=== PATIENT | male | born 1970 | race Caucasian/White ===

== ENCOUNTER 2017-05-28 17:47 | Inpatient (IN) | payer MEDICAID ==
[~2017-05-28] VITALS: Ht 188 cm; Wt 117.0 kg
[~2017-05-28 17:47] MED LIST: ALDACTONE25 MG PO; B COMPLEX1 EAC1 PO; BAYER CHEWABLE81 MG PO; BYSTOLIC 5 MG5 M1 PO; BYSTOLIC10 MG PO; CRESTOR40 MG PO; FENOFIBRIC ACI135 MG PO; FISH OIL 500 M1 EAC1 PO; FOLIC ACID1 MG PO; HYDROCODON-ACE1 EAC5 PO; IBUPROFEN 400400 M2 PO; LIORESAL 10 MG10 MG PO; LIPITOR 20 MG T20 M1 PO; OMEPRAZOLE40 MG PO; OSELB75 PO; OXYCODONE HCL 55 MG PO; PREVACID PO; PRINIVIL5 MG PO; UNICOMPLEX M TA1 TA1 PO; ZETIA10 MG PO
[2017-05-28 17:58] VITALS: BP 147/107
[2017-05-28 18:44] LABS: HEMATOCRIT 44.3 % (42.0-52.0); HEMOGLOBIN 15.1 gm/dL (14.0-18.0); MCH 33.6 pg (26.0-34.0); MCHC 34.1 g/dL (28.0-37.0); MCV 98.4 fL (80.0-100.0); MPV 8.2 fl. (7.2-11.1); NUCLEATED RBCS 0 /100WBC; PLATELET COUNT* 248 thou/uL (150-400); RDW-CV 16.4 % (10.5-14.5); WBC 8.1 thou/uL (4.0-11.0)
[2017-05-28 18:49] LABS: BE 1.5 mmol/L (-2 to +3); HCO3 24.1 mmol/L (22.0-26.0); PCO2 32.7 mmHg (35.0-45.0); PO2 84.1 mmHg (75.0-100.0); pH 7.485 (7.340-7.450)
[2017-05-28 18:57] LABS: CALCIUM 8.7 mg/dL (8.5-10.1); CREATININE 1.1 mg/dL (0.6-1.3); POTASSIUM 3.7 mmol/L (3.5-5.1)
[2017-05-28 19:04] LABS: ALBUMIN 2.9 g/dL (3.4-5.0); TOTAL BILIRUBIN 1.2 mg/dL (<0.1-1.0); TOTAL PROTEIN 7.2 g/dL (6.4-8.2); TROPONIN-I LEVEL 0.27 ng/mL (<0.06)
--- NOTE | 2017-05-28 19:10 | NUR ---
RT HERE AND TREATMENT IN PROGRESS
[2017-05-28 19:21] LABS: ABSOLUTE LYMPHOCYTES 0.3 thou/uL (0.8-5.3); ABSOLUTE MONOCYTES 0.6 thou/uL (0.0-1.2); ABSOLUTE NEUTROPHILS 7.2 thou/uL (1.6-8.1); PLATELET ESTIMATE ADEQUATE
[2017-05-28 19:35] LABS: URINE BLOOD 3+ (Negative); URINE CLARITY CLEAR; URINE COLOR DARK YELLOW; URINE GLUCOSE-RANDOM NEGATIVE (Negative); URINE KETONES 1+ (Negative); URINE LEUKOCYTES-REFLEX NEGATIVE (Negative); URINE NITRITE-REFLEX NEGATIVE (Negative); URINE PROTEIN 3+ (Negative); URINE SPECIFIC GRAVITY >= 1.030 (1.005-1.030); URINE UROBILINOGEN 0.2 E.U./dl (0.2-1.0)
[2017-05-28 19:39] LABS: ICTOTEST (BILI CONFIRMATORY) Negative (Negative); URINE BILIRUBIN 2+ (Negative)
[2017-05-28 19:42] LABS: AMP/METHAMP POSITIVE (Negative); BARBITURATES Negative (Negative); BENZODIAZEPINES Negative (Negative); COCAINE Negative (Negative); METHADONE Negative (Negative); OPIATES Negative (Negative); PCP Negative (Negative); THC POSITIVE (Negative)
[2017-05-28 19:46] LABS: CRYSTALS None Seen /LPF (None Seen); HYALINE CASTS 4-10 Moderate /LPF (None Seen); MUCUS 0-3 Light strn/LPF (None Seen)
[2017-05-28 19:47] LABS: URINE RBC 0-2 Rare /HPF (0-2)
[2017-05-28 19:48] LABS: BACTERIA-REFLEX 1-9 Few /HPF (None Seen); SQUAMOUS NONE SEEN /LPF (0-3); URINE WBC-REFLEX None Seen /HPF (0-5)
[2017-05-28 19:52] LABS: INFLUENZA A ANTIGEN None Detected (None Detect); INFLUENZA B ANTIGEN None Detected (None Detect)
--- NOTE | 2017-05-28 19:59 | NUR ---
DR GUTHRIE INTO SEE PATIENT
[2017-05-28 22:00] VITALS: BP 131/73
[2017-05-28 22:30] VITALS: BP 126/91
--- NOTE | 2017-05-28 23:00 | NUR ---
RECEIVED REPORT FROM ER. PT TO ROOM AT 2205, PT'S SISTER AT BEDSIDE. PT RESTLESS AND ANXIOUS. DIAPHORETIC DUE TO TEMP BREAKING. TELEMETRY APPLIED SHOWING A-FIB BUT ELECTRODES COMING OFF FREQ DUE TO DIAPHORESIS AND RESTLESSNESS. SEE ADMISSION ASSESSMENT AND HX. PT INFORMED OF FALL RISK, BED ALARM ON. WILL CONT TO MONITOR AND ASSIST NEEDED.
[2017-05-29] VITALS: BP 119/78
[2017-05-29 04:00] VITALS: BP 127/88
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
[2017-05-29 08:00] VITALS: BP 148/84
[2017-05-29 12:00] VITALS: BP 125/81; BP 128/81
--- NOTE | 2017-05-29 14:37 | EKG ---
[place] [address] ELECTROCARDIOGRAM REPORT Name: FARZANA STARKEY Room: [address] ADM IN .R.#: [id number] Admission: 05/28/17 Attend Phys: Shayy Will Discharge: Date of : 68 Report #: [id number] THIS REPORT FOR: //name// [facility] ED Test Date: 2017-05-28 Test Time: 17:57:37 Pat Name: FARZANA STARKEY Department: Room: [facility] Gender: M Endo Tech: MIKI : 1970 Requested By: Velma Pope Order Number: [id number] MD: Kem Hatfield Measurements Intervals [place] Rate: 117 P: DC: QRS: 101 QRSD: 137 T: -34 QT: 356 QTc: 497 Interpretive Statements Atrial fibrillation RBBB and LPFB Borderline ST elevation, lateral leads Baseline wander in lead(s) V1 Compared to ECG 05/08/2013 11:26:02 Left posterior fascicular block now present Right bundle-branch block now present ST (T wave) deviation now present Sinus rhythm no longer present Myocardial infarct finding no longer present Electronically Signed On 05-29-2017 14:37:15 COUNTER CUTTER by Kem Hatfield [email or web address] <ELECTRONICALLY SIGNED> By: Kem Hatfield MD, [facility] 05/29/17 1437 56 175 Kem Hatfield MD, [facility] /EPI
[2017-05-29 16:30] VITALS: BP 125/90
[2017-05-29] MEDS ORDERED: PRINIVIL20 M1 PO (17:25)
--- NOTE | 2017-05-29 18:23 | NUR ---
ASSUMED CARE OF PT AT 0730. PT WAS LETHARGIC THIS AM BUT THE MORNING PROGRESSED PT BECAME MORE AL;ERT AND HAS BEEN A&O X4 FOR THE REMAINDER OF THE SHIFT. PT HAS HAD C/O RUBIA AND RIB PAIN WELL A HEADACHE THAT HAVE BEEN EFFECTIVELY CONTROLLED WITH PRN PAIN MEDICATION. PT IS STEADY ON HIS FEET AND HAS BEEN AMBULATING TO THE BATHROOM WITH SBA. PT HAS A GOOD APPETITE AND EVEN ATE A TURKEY SANDWICH WITH HIS DINNER. PT CURRENTLY RESTING INN BED WATCHING TV WITH FAMILY AT BEDSIDE. NURSING WILL CONTINUE TO MONITOR.
[2017-05-29] MEDS ORDERED: NORCO 10-325 T1 EACH PO (19:38)
[2017-05-29 20:30] VITALS: BP 138/84
[2017-05-29 20:51] LABS: CALCIUM 8.1 mg/dL (8.5-10.1); CREATININE 0.9 mg/dL (0.6-1.3); MAGNESIUM 1.8 mg/dL (1.8-2.4)
[2017-05-30] VITALS: BP 138/77
[2017-05-30 04:48] VITALS: BP 130/92
--- NOTE | 2017-05-30 04:53 | NUR ---
ASSUMED PT CARE AT H1930, PT IS A&OX4, PT WAS VERY UPSET THAT HIS PCP WAS NOT NOTIFIED OF HIS ADMISSION. HOME MEDICATIONS RESTARTED. PRN PAIN MEDEICATIONS CHANGED AND GIVEN PER JUL. PT IA TRACING AFIB ON THE MONITOR, ON RA SATTING MID TO HIGH 90'S. PT IS UP AD DEBORAH IN HIS ROOM AND SPPEARS STABLE ON HIS FEET. BED IN LOS POSITION, CALL LIGHT IN REACH. HOURLY ROUNDING COMPELTED FOR PT SAFETY.
[2017-05-30 08:00] VITALS: BP 121/90
[2017-05-30 13:19] VITALS: BP 115/72
[2017-05-30 16:30] VITALS: BP 127/97
--- NOTE | 2017-05-30 18:19 | NUR ---
ASSUMED CARE OF PT AT 0730. PT CONTINUES TO BE A&O X4. PT VSS AND C/O RIB AND BACK PAIN THAT HAS BEEN CONTROLLED WITH PRN PAIN MEDS. PT C/O SOA WITH AMBULATION AND LAYING FLAT, HE REFUSES TO WEAR SUPPLEMENTAL O2 BUT IS MAINTAINING SATS IN THE MID 90S ON ROOM AIR. PT HAS A GOOD APPETITE AND HAS ATE GREATER THAN 90% OF ALL MEALS TODAY. NURSING WILL CONTINUE TO MONITOR.
[2017-05-30 20:00] VITALS: BP 131/94
[2017-05-31] VITALS (14 sets, daily range): BP systolic 114–155; BP diastolic 70–104
--- NOTE | 2017-05-31 04:41 | NUR ---
ASSUMED PT CARE AT 1930, PT IS A&OX4, PT DENIES ANY PAIN OR NEEDS THIS SHIFT. PT IS TRACING AFIB/FLUTTER ON THE MONITOR, ON RA SATTING MID TO HIGH 90'S. PT CALLED OUT AND STATES HE COULD NOT BREATHE, O2 SAT READING 95% ON RA. AUDIBLE WHEEZES PRESENT. PT WAS PLACED ON 2L NC PER REWUEST. PT ASKED IF HE WANTED A PRN BREATHING TREATMENT. PT DENIED STATING THAT THE TREATMENTS WERE MAKING HIM NOT ABLE TO BREATHE. DESPITE EDUCATION PT DID NOT WANT A TREATMENT. PT IS UP AD DEBORAH IN HIS ROOM AND STABLE ON HIS FEET. BED IN LOW POSITION, CALL LIGHT IN RAECH. HOURLY ROUNDING COMPLETED FOR PT SAFETY.
--- NOTE | 2017-05-31 07:15 | NUR ---
CHANGE OF SHIFT, BEDSIDE REPORT GIVEN PATIENT SEEN AT BEDSIDE, ASLEEP
--- NOTE | 2017-05-31 09:00 | NUR ---
report given to mary garces and she assume patient care
--- NOTE | 2017-05-31 10:32 | NUR ---
Pt out of room having a heart cath, will f/u later
--- NOTE | 2017-05-31 11:20 | NUR ---
PT BACK FROM TRAFFIC CIRCUIT ENGINEER. PT EDUCATED ON BEDREST AND NOT ELEVATING HOB ABOVE 30 DEGREES IT CAN CAUSE BLEEDING. PT AFIB ON MONITOR. NO BLEEDING OR HEMATOMA AT CATH SITE
--- NOTE | 2017-05-31 12:00 | NUR ---
PT SITTING UP IN BED PUTTING HIS SHORTS ON. PT REEDUCATED ON BEDREST AND NOT SITTING UP DUE TO RISK OF BLEEDING. PT VERBALIZED UNDERSTANDING. HE STATES THAT IF NURSING STAFF DOES NOT COME IMMEDIATELY WHEN CALLED THEN HE WILL "JUST GET UP AND WALK TO THE BATHROOM". URINALS AT AT BS. CONTINUED TO REINFORCE RISK OF BLEEDING
--- NOTE | 2017-05-31 17:03 | NUR ---
PT HAD HEART CATH THIS AFTERNOON. PT DENIES CP OR SOA. PT NONCOMPLAINT WITH BEDREST DESPITE WARNING OF POSSIBILITY OF BLEEDING. PT DIURESED APPROX 3 L THIS AFTERNOON AFTER LASIX. NO BLEEDING OR HEMATOMA FROM CATH SITE. PT TOLERATING PO WELL.
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
--- NOTE | 2017-05-31 18:19 | NUR ---
Pt given phone numbers for [facility] at [facility]
[2017-06-01] VITALS: BP 118/75
[2017-06-01 03:00] VITALS: BP 112/72
[2017-06-01 05:17] LABS: CALCIUM 8.3 mg/dL (8.5-10.1); CREATININE 0.8 mg/dL (0.6-1.3); POTASSIUM 4.5 mmol/L (3.5-5.1)
--- NOTE | 2017-06-01 05:55 | NUR ---
PT HAS DENIED CHEST/ARM PAIN, NUMBNESS/TINGLING, AND SOA THROUGHOUT THIS SHIFT. HE CONTINUES TO REFUSE TO WEAR O2 PER NC. RIGHT GROIN CATH DRESSING C/D/I, NO BRUISING OR HEMATOMA PRESENT. PT VOIDS PER URINAL INDEPENDENTLY. BLE 1+ PITTING EDEMA THAT PT STATED IS "BECAUSE OF THIS INFECTION." PT EDUCATED ON HIS DECREASED EF OF 25% AND CARDIAC ETIOLOGY, HE REPLIED "MY HEART IS BECAUSE OF THIS INFECTION TOO." VSS. WHISKEY FILTERER TRACING A-FIB WITH BBB. CALL LIGHT WITHIN REACH.
[2017-06-01 08:00] VITALS: BP 131/91
--- NOTE | 2017-06-01 09:50 | CON ---
[address] [address] CONSULTATION Name: FARZANA STARKEY Room: [address] IN .R.#: [id number] Admission: 05/28/17 Attend Phys: Shayy Will Discharge: Date of : 68 Report #: [id number] THIS REPORT FOR: //name// CC: JOE physician/PCP Faustino Zabala DATE OF SERVICE: 05/29/2017 CHIEF COMPLAINT: Chest pain. HISTORY OF PRESENT ILLNESS: The patient is a 47-year-old male with history of prior bypass surgery presented with acute chest discomfort, very similar to his prebypass symptoms. He did not have his nitroglycerin apparently and presented to the emergency room with 8/10 severe left-sided chest discomfort. It occurred at rest. It was not associated with shortness of breath but he has been coughing a lot. He was diagnosed with pneumonia and during his cardiac workup his troponin I was mildly abnormal at 0.35. He is chest pain free at this point in time after nitroglycerin. He has been short of breath with activity and denies orthopnea or PND. He has had intermittent edema. He presents with a positive drug screen and is an active tobacco user as well. He denies fevers but has had some chills and associated cough. He has not had any revascularization since his initial bypass in 2008 but has not seen his hospital manager, Dr. Pickard in over a year but at that time stress testing was negative. PAST MEDICAL HISTORY: [place] CABG 2009, 5 vessels, hyperlipidemia, hypertension, tobacco use, drug use. HOME MEDICATIONS: Include lisinopril 20 mg daily, Bystolic 5 mg daily, Crestor 40 mg daily, aspirin 81 mg daily, hydrocodone p.r.n. PAST SURGICAL HISTORY: Prior collar bone surgery. FAMILY HISTORY: Positive for heart disease and high blood pressure on the male sides of his family. SOCIAL HISTORY: As above. REVIEW OF SYSTEMS: PVD: Denies history of carotid vascular disease, neuro symptoms, slurred speech, [place] [address] CONSULTATION Name: FARZANA STARKEY Room: [address]#: [id number] Admission: 05/28/17 Attend Phys: Shayy Will Discharge: Date of : 68 Report #: [id number] RESPIRATORY: Positive asthma. CARDIOVASCULAR: Positive chest discomfort, positive shortness of breath. No orthopnea, no PND. Intermittent edema is noted. No history of murmur. ENDOCRINE: He is not known to be a diabetic. GENITOURINARY: No dysuria or hematuria. HEME: No anemia or bleeding disorders. RENAL: No history of kidney failure. NEURO: Denies history of strokes or TIA. SKIN: No rashes. PHYSICAL EXAMINATION: VITAL SIGNS: Blood pressure on presentation was 148/84, pulse was sinus tachycardia, heart rate 122, temperature is 36.3. GENERAL: This is an alert, oriented, morbidly obese white male. He is alert and oriented in no apparent distress. NECK: Supple. No jugular venous distention. CARDIOVASCULAR: Regular. I cannot hear murmur. LUNGS: Clear to auscultation. ABDOMEN: Nontender. EXTREMITIES: There is no peripheral edema. SKIN: Warm and dry. LABORATORY DATA: Electrocardiogram demonstrates a sinus rhythm. There is a right bundle branch block conduction abnormality incomplete. There are no acute ST segment abnormalities. There is T-wave inversion in V4, V5, subtle. Hemoglobin is 15.1, white blood cell count is 8.1, platelet count is 248,000, D-dimer is 1.28. Toxicology is positive for meth and marijuana. IMAGING: CTA of the chest reveals no evidence of pulmonary embolism. IMPRESSION: 1. Unstable angina. There is a slight cardiac troponin level abnormality. His cardiac troponin level is 0.32 and 0.35 but this is in the setting of an active infection. I think I would like to treat him with antibiotics for 48 hours and plan for further evaluation with the diagnostic cardiac catheterization unless he becomes more anginal. Currently, he is chest pain free. 2. Coronary artery disease status post coronary artery bypass graft. It appears the patient has some risk factor of medications that need to be further undertaken. 3. Hypertension. He will continue with his present medical therapy. 4. Substance abuse as noted above. Withdrawal precautions have been initiated. <ELECTRONICALLY SIGNED> By: Kem Hatfield MD, FACC 06/01/17 0950 1053 [id number] Hatfield MD, FACC /nt
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
--- NOTE | 2017-06-01 11:16 | NUR ---
ASSUMED CARE OF PT AROUND 0800 THIS AM. REFER TO ASSESSMENT. PT IV SITE NO LONGER PATENT THIS AM. NEW IV INSERTED TO LT AC. PT STARTED ON NEW HTN/ RATE CONTROL MEDICATIONS THIS AM BY RAW SILK GRADER. ANTICIPATE MARTHA WITH CARDIOVERSON TOMORROW AM. PHYSICIAN AND NURSE DISCUSSED PLAN OF CARE WITH PT AND PT REPORTS UNDERSTANDING AND AGREES WITH PLAN OF CARE THIS AM. NO OTHER CONCERNS AT THIS TIME. CLWR. WCTM.
[2017-06-01 11:37] VITALS: BP 119/71; BP 19/71
[2017-06-01 15:50] VITALS: BP 128/100
--- NOTE | 2017-06-01 17:04 | NUR ---
PT PROGRESSING TOWARDS GOALS. CONSENT OBTAINED BY LINOLEUM LAYER RN FOR MARTHA W/ CARDIOVERSION TOMORROW. PT HAS BEEN EDUCATED ON PROCEDURE. VSS THIS SHIFT. PT'S PAIN AND ANXIETY MANAGED W/ PRN MEDICATION THIS SHIFT. PT REPORTS FREQUENT URINE OUTPUT WITH IV LASIX ADMINISTRATION. UNABLE TO ACCURATELY MEASURE. NO OTHER CONCERNS AT THIS TIME. CLWR. WCTM.
--- NOTE | 2017-06-01 17:43 | CARD ---
[facility] [address] [place] [address] CARDIAC CATH REPORT Name: FARZANA STARKEY Baldemar Room: [address] IN [facility]#: [id number] Admission: 05/28/17 Attend Phys: Shayy Will Discharge: Date of : 68 Report #: [id number] THIS REPORT FOR: //name// APPROVED REPORT Patient Details Patient Status: In-Patient Room #: The patient is a 47 year-old male Event Personnel Ryan Blair Heel Seat Fitter Machine, Hilary Barrett RN RN, Key Newman RTR Karin Lopez James Monitor Procedures Performed cath Indication Heart failure, Unstable angina Risk Factors Coronary Artery Disease, Tobacco History () Previous Procedures/Diagnoses Previous CABG Procedure Narrative The patient was brought electively to the Cardiac Catheterization Laboratory and was prepped and draped in a sterile manner. The right femoral was infiltrated with 1% Lidocaine subcutaneous anesthesia. A 6fr Ultimum Sheath sheath was inserted into the right femoral artery. Coronary angiography was performed using coronary diagnostic catheters. The right coronary system was accessed and visualized with a Diagnostic-JR4 & RBG catheter. The left coronary system was accessed and visualized with a Diagnostic-JL4 & IM catheter. The left ventricle was accessed and visualized with a Diagnostic-ANGLED PIG catheter. Left ventricular/Aortic Valve gradient assessed via catheter pullback. Left ventriculogram was performed in IGNACIO projection. Pre-demployment femoral angiogram was performed . Closure device was deployed with a 6 Fr MynxGrip 6/7F. The patient tolerated the procedure well and there were no complications associated with the procedure. There was no hematoma. Intraoperative Conscious Sedation Sedation start time: 1009 Case end Time: 1048 [place] [address] CARDIAC CATH REPORT Name: JAKYFARZANA Baldemar Room: [address] IN [facility]#: [id number] Admission: 05/28/17 Attend Phys: Shayy Will Discharge: Date of : 68 Report #: [id number] Fentanyl 75 mcg Versed 2 mg Fluoro Time: 7.7 minutes Dose: DAP [id number] cGycm2 2124 mGy Contrast Type and Amount: Omnipaque 305 ml Coronary Angiography The patient's coronary anatomy is right dominant. [place] Artery Percent Stenosis Left Main: 0 % Prox LAD: 100 % Mid/Distal LAD: % Circumflex: 100 % RCA: 100 % Ramus: % Grafts (Complete if Previous CABG=Yes: Percent Stenosis) HUANG graft had a 50% ostial stenosis. HUANG graft filled only a small apical lad. SVG was open to a diagonal artery and a sequential jump graft to a distal small marginal branch of the circumflex. Second SVG was open to the distal RCA with a sequential jump graft to the PORTIA branch. [place] PDA had a ostial 90% stenosis. [place] PORTIA had a mid 80% stenosis. Left Ventriculography The left ventricular ejection fraction is estimated to be 25-30%. Global hypokinesis noted of the left ventricle Hemodynamics The aortic pressure is 130/101 mmHg with a mean of 112 mmHg. The left ventricular pressure is 134/14 mmHg with a mean of mmHg. The left ventricular end diastolic pressure is 28 mmHg. There was no gradient across the aortic valve upon pullback. Pullback from the left ventricle to the aorta revealed no gradient across the aortic valve. Conclusion 1. Severe 3 vessel cad 2. Patent HUANG graft to the LAD 3. Patent SVG's to the diagonal, marginal branch of the circumflex and , PAD, and PORTIA of the RCA 4. Severe LV systolic function Recommendations Consider stenting of the PDA branch of the RCA [place] [address] CARDIAC CATH REPORT Name: FARZANA STARKEY Room: [address] IN [facility]#: [id number] Admission: 05/28/17 Attend Phys: Shayy Will Discharge: Date of : 68 Report #: [id number] despite medical therapy. Consider Life Vest and ICD for primary prevention of sudden <ELECTRONICALLY SIGNED> By: Ryan Blair MD, [facility] 06/01/17 1743 1743 [id number] Blair MD, FACC /INF
[2017-06-01 20:10] VITALS: BP 158/107
[2017-06-02] VITALS (17 sets, daily range): BP systolic 80–137; BP diastolic 46–102
--- NOTE | 2017-06-02 07:50 | NUR ---
ASSUMED CARE AT 1999, ASSESSMENT CHARTED. PATIENT ALERT/ORIENTED X4, RESTING IN BED. UP AD DEBORAH IN ROOM. DENIES NEEDS. STATES HAVING PAIN TO BACK, MEDS PER MAR WITH RELIEF NOTED. REFUSING SCD'S. NPO AFTER MIDNIGHT FOR AM PROCEDURE. CALL LIGHT WITHIN REACH, ENCOURAGED TO CALL FOR NEEDS.
--- NOTE | 2017-06-02 11:32 | EKG ---
[place] [address] ELECTROCARDIOGRAM REPORT Name: FARZANA STARKEY Room: [address] ADM IN M.R.#: [id number] Admission: 05/28/17 Attend Phys: Shayy Will Discharge: Date of : 68 Report #: [id number] THIS REPORT FOR: //name// [facility] Test Date: 2017-06-02 Test Time: 09:17:05 Pat Name: FARZANA STARKEY Department: Room: [address] Gender: M Debt And Budget Counselor: : 1970 Requested By: Ryan Blair Order Number: [id number] Yusuf MD: Ryan Blair Measurements Intervals [place] Rate: 66 P: 44 [place]: 163 QRS: 88 QRSD: 144 T: 68 QT: 466 QTc: 489 Interpretive Statements Sinus rhythm Atrial premature complex Left atrial enlargement Right bundle branch block Compared to ECG 05/28/2017 17:57:37 Atrial fibrillation no longer present Electronically Signed On 06-02-2017 11:32:23 MACHINE HEEL BUILDER by Ryan Blair [email or web address] <ELECTRONICALLY SIGNED> By: Ryan Blair MD, [facility] 06/02/17 1132 6 6 Ryan Blair MD, [facility] /EPI
--- NOTE | 2017-06-02 16:36 | NUR ---
ASSUMED CARE OF PATIENT THIS AM AT 0730. PATIENT IS ALERT AND ORIENTED THIS AM. HE DENIED PAIN AND DISCOMFORT. PATIENT KEPT NPO P MN FOR A PROCEDURE IN CARDIOLOGY. PATIENT PREMEDICATED WITH AMIODERONE AND ELIQUS PER DR ABDULLAHI ORDERS. HE WAS TAKEN TO THE CATHLAB PER BED. PATIENT RETURNED TO THE ROOM AFTER 1000 AM. HIS TELE RHYTHM HAS CHANGED TO SR. PATIENT REMAINS IN SR AT THIS TIME. HE HAD A EPISODE WHEN HIS HR DECREASED TI THE 20S. PATIENT WAS SLEEPING AT THE TIME AND DENIED CHEST PAIN. PATIENT IS RESTING AT THIS TIME. NO FALLS OR INJURY
--- NOTE | 2017-06-02 16:42 | TEE ---
[place] [address] TRANSESOPHAGEAL ECHOCARDIOGRAM Name: FARZANA STARKEY Room: [address] IN [facility]#: [id number] Admission: 05/28/17 Attend Phys: Faustino Zabala Discharge: Date of : 68 Date of Service: 06/02/17 1641 Report #: [id number] THIS REPORT FOR: //name// APPROVED REPORT Study performed: 06/02/2017 08:27:32 EXAM: Transesophageal Echocardiogram Patient Location: In-Patient Room #: [facility] Status: routine BSA: 2.46 HR: 104 bpm BP: 100/56 mmHg Rhythm: Atrial Fibrillation Other Information Study Quality: Good Indications Atrial Fibrillation Echo Enhancing Agent Indication: Rule out Shunt Agent(s) / Amount(s) Used: Agitated Saline 20 cc Procedure After obtaining informed consent, patient underwent transesophageal echo in the [employer]. Type of Sedation : General Anesthesia Sedation was administered by Anesthesiologist. Sedation start time: 844 Case end Time: 904 Sedation was achieved intravenously with: Propofol (200 mg) Transesophageal probe was inserted and advanced into esophagus without difficulty by Ryan Blair MD, FACC. Echo enhancement indication: R/O Septal defect. Echo enhancement agent administered: Agitated Saline The MARTHA was performed without complications. Synchronized Cardioversion acheived with 300 Joules after 1 attempt(s). Rhythm following Synchronized Cardioversion: Normal Sinus Rhythm Throughout the procedure, the blood pressure, pulse oximetry, cardiac rhythm, and rate were monitored. The patient tolerated the procedure without [place] [address] TRANSESOPHAGEAL ECHOCARDIOGRAM Name: FARZANA STARKEY Room: [address] IN [facility]#: [id number] Admission: 05/28/17 Attend Phys: Faustino Zabala Discharge: Date of : 68 Date of Service: 06/02/17 1641 Report #: [id number] from conscious sedation was uneventful and vital signs were stable. Left Ventricle Left ventricle is mildly dilated. There is global hypokinesis of the left ventricle. There is normal left ventricular wall thickness. Left ventricular systolic function is severely decreased. LVEF is 25-30%. Right Ventricle The right ventricle is normal size. The right ventricular systolic function is normal. Atria No thrombus is visualized in the left atrium or appendage. Left atrium is mildly dilated. Interatrial septum is intact without evidence of ASD or PFO. The right atrium size is normal. Aortic Valve Mild aortic valve sclerosis. No aortic regurgitation is present. There is no aortic valvular stenosis. Mitral Valve The mitral valve is normal in structure. Mild to moderate mitral regurgitation. No evidence of mitral valve stenosis. Tricuspid Valve The tricuspid valve is normal in structure. Trace tricuspid regurgitation. Pulmonic Valve The pulmonary valve is normal in structure. There is no pulmonic valvular regurgitation. Great Vessels The aortic root is normal in size. Pericardium There is no pericardial effusion. <Conclusion> Left ventricle is mildly dilated. LVEF is 25-30%. No thrombus is visualized in the left atrium or appendage. Left [place] [address] TRANSESOPHAGEAL ECHOCARDIOGRAM Name: JAKYFARZANA R Room: [address] IN ..#: [id number] Admission: 05/28/17 Attend Phys: Faustino Zabala Discharge: Date of : 68 Date of Service: 06/02/171640 Report #: [id number] Interatrial septum is intact without evidence of ASD or PFO. Mild to moderate mitral regurgitation. <ELECTRONICALLY SIGNED> By: Ryan Blair MD, FACC 06/02/171640 40 40 Ryan Blair MD, FACC /INF
[2017-06-03] VITALS: BP 121/76
[2017-06-03 04:00] VITALS: BP 135/84
--- NOTE | 2017-06-03 05:17 | NUR ---
ASSUMED PT CARE AT 1930, PT IS A&OX4, PT IS TRACING NSR ON THE MONITOR, WITH A BBB, PT BECOMES NAIDA MID TO LOW 30'S ON OCCASION WHILE HE IS SLEEPING. PT IS ON RA SATTING MID TO HIGH 90'S AT THIS TIME. PT IS UP AD DEBORAH IN HIS ROOM, STABLE ON HIS FEET. BED IN LOW POSITION, CALL LIGHT IN REACH. HOURLY ROUNDING COMPLETED FOR PT SAFETY.
[2017-06-03 08:00] VITALS: BP 144/103
[2017-06-03 12:00] VITALS: BP 122/81
--- NOTE | 2017-06-03 12:10 | NUR ---
ASSESSMENT COMPLETED REFER TO COMPUTER CHARTING. HOSPICE VOLUNTEER COORDINATOR TRACKING SR WITH BBB. PATIENT REPORTING NO SHORTNESS OF BREATH OR NAUSEA. PATIENT RESING IN BED. BED IN LOW AND LOCKED POSITION. CALL LIGHT WITHIN REACH. PATIENT UP IN ROOM. WILL CONTINUE TO MONITOR.
[2017-06-03 12:15] VITALS: BP 125/72
--- NOTE | 2017-06-03 17:30 | EKG ---
[place] [address] ELECTROCARDIOGRAM REPORT Name: FARZANA STARKEY Room: [address] ADM IN M.R.#: [id number] Admission: 05/28/17 Attend Phys: Shayy Will Discharge: Date of : 68 Report #: [id number] THIS REPORT FOR: //name// [facility] Test Date: 2017-06-03 Test Time: 07:54:57 Pat Name: FARZANA STARKEY Department: Room: [address] Gender: M Conference Center Manager: : 1970 Requested By: Ryan Blair Order Number: [id number] Yusuf MD: Markus Calvo Measurements Intervals [place] Rate: 66 P: 47 [place]: 181 QRS: 84 QRSD: 145 T: 51 QT: 492 QTc: 516 Interpretive Statements Sinus rhythm Left atrial enlargement Right bundle branch block Compared to ECG 06/02/2017 09:17:05 Atrial premature complex(es) no longer present Electronically Signed On 06-03-2017 17:30:00 CARBON FURNACE OPERATOR by Markus Calvo [email or web address] <ELECTRONICALLY SIGNED> By: Markus Calvo MD, FAC 06/03/17 1730 0754 0754 Markus Calvo MD, [facility] /EPI
[2017-06-03 20:00] VITALS: BP 152/102
[2017-06-04] VITALS: BP 131/94
[2017-06-04 04:00] VITALS: BP 131/89
--- NOTE | 2017-06-04 04:36 | NUR ---
ASSUMED PT CARE AT 1930, PT IS A&OX4, PT DENIES ANY NEEDS AT THIS TIME. PT IS TRACING NSR, SB ON THE MONITOR WHILE HE IS SLEEPING. PT WILL NAIDA INTO THE 30'S AND HIGH 20'S, PT HAS OCCASIONAL PAUSES LASTING UP TO 3 SECONDS. PT IS ON RA SATTING MID TO HIGH 90'S MAT THIS TIME. PT IS UP AD DEBORAH IN HIS ROOM AND STABLE ON HIS FEET. BED IN LOW POSITION, CALL LIGHT IN REACH, HOURLY ROUNDING COMPLETED FOR PT SAFETY.
[2017-06-04 07:38] LABS: ANION GAP 8 mmol/L (7-16); BUN 21 mg/dL (7-18); CHLORIDE 100 mmol/L (98-107); CHOLESTEROL 149 mg/dL (<200); CO2 29 mmol/L (21-32); CREATININE 0.7 mg/dL (0.6-1.3); GLUCOSE 124 mg/dL (70-99); HDL CHOLESTEROL 44 mg/dL (>40); LDL CHOLESTEROL 86 mg/dL (<100); POTASSIUM 5.6 mmol/L (3.5-5.1); SERUM ASSESSMENT Clear; SODIUM 137 mmol/L (136-145); TC:HDL 3.4 Ratio (Not establshd); TRIGLYCERIDE 96 mg/dL (<150); VLDL 19 mg/dL (<40)
[2017-06-04 08:00] VITALS: BP 154/96
[2017-06-04 10:19] VITALS: BP 154/96
[2017-06-04 11:30] VITALS: BP 154/101
--- NOTE | 2017-06-04 12:27 | NUR ---
Following for d/c planning needs. Reviewed chart and spoke with nurse, pt and pt's sister. Pt has applied for Social Security disability and states he spoke with the Medical Review physician at [employer] and was told they are making decision re: disability application. According to documentation from [facility], liaison met with pt and they will follow up with sister re: Medicaid application.
--- NOTE | 2017-06-04 12:38 | EKG ---
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1970 Requested By: Ryan Blair Order Number: [id number] MD: Ryan Blair Measurements Intervals [place] Rate: 62 P: 51 IN: 176 QRS: 83 QRSD: 144 T: 42 QT: 513 QTc: 521 Interpretive Statements Sinus rhythm Left atrial enlargement Right bundle branch block Baseline wander in lead(s) V1 Compared to ECG 06/03/2017 07:54:57 No significant changes Electronically Signed On 06-04-2017 12:38:15 FUNERAL DIRECTOR/EMBALMER by Ryan Blair [email or web address] <ELECTRONICALLY SIGNED> By: Ryan Blair MD, [facility] 06/04/17 1238 09 09 Ryan Blair MD, [facility] /EPI
--- NOTE | 2017-06-04 12:41 | NUR ---
Nutrition: Pt seen for LOS. Pt stated he is discharging home later today. We briefly discussed low fat/low salt diet. Pt's sister had questions about what to cook for pt. His appetite is good. 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 Low risk.
[2017-06-04] MEDS ORDERED: PACERONE 200 M200 M1 PO (15:24)
[2017-06-04] MEDS ORDERED: ELIQUIS5 MG PO (15:25)
[2017-06-04] MEDS ORDERED: BAYER CHEWABLE81 MG PO (15:26)
[2017-06-04] MEDS ORDERED: NICOTINE TRANSD21 M1 (15:28)
[2017-06-04] MEDS ORDERED: TYLENOL325 MG PO (15:30)
[2017-06-04] MEDS ORDERED: LEVAQUIN 500 M500 M2 PO (15:33)
[2017-06-04] MEDS ORDERED: ATIVAN1 MG PO (15:35)
[2017-06-04 15:37] VITALS: BP 154/96
--- NOTE | 2017-06-04 16:26 | NUR ---
ASSUMED CARE OF PT THIS AM ASSESSED AND DOCUMENTED. PT ON CARDIAC MONITER TRACING SR. PT IS A&O AND HAS BEEN ON ROOM AIR. PT D/C'D TO HOME. ALL CONSULTS OK WITH D/C. EDUCATION GIVEN RE MEDICATIONS. FOLLOW-UPS. AND DRS ORDERS. SCRIPTS GIVEN. ALL BELONGINGS PACKED UP AND LEFT WITH PT ACCOMPANIED BY SISTER AND STAFF.
--- NOTE | 2017-06-09 16:59 | NUR ---
Follow up phone call, patient stated he is doing well but is tired, is weighing daily, walking for exercise, has gotten all his medications and states he has remained off alcohol. Has an appointment with the cardioloist tomorrow. Is considering outpatient cardiac rehab, wants to be called back in 2 weeks. States he has not had any of the symptoms that brought him into the hospital.
== END 2017-06-04 16:30 | disposition home or self-care (01) | DRG 286 ==
LOC: M.ERS 17:47 → M.2W 20:27 → M.TBA-ER 20:27 → M.2W 23:10
PROVIDERS: Emergency Medicine; Family Medicine; Internal Medicine Cardiovascular Disease; Personal Emergency Response Attendant; ADMIT Internal Medicine
PROC: B2111ZZ Fluoroscopy of Multiple Coronary Arteries using Low Osmolar Contrast (ICD-10-PCS; principal; 2017-06-01)
PROC: B2131ZZ Fluoroscopy of Multiple Coronary Artery Bypass Grafts using Low Osmolar Contrast (ICD-10-PCS; principal; 2017-06-01)
PROC: B2151ZZ Fluoroscopy of Left Heart using Low Osmolar Contrast (ICD-10-PCS; principal; 2017-06-01)
PROC: 4A023N7 Measurement of Cardiac Sampling and Pressure, Left Heart, Percutaneous Approach (ICD-10-PCS; principal; 2017-06-01)
PROC: B24BZZ4 Ultrasonography of Heart with Aorta, Transesophageal (ICD-10-PCS; 2017-06-02)
DX: I25.110 Atherosclerotic heart disease of native coronary artery with unstable angina pectoris (principal); J18.9 Pneumonia, unspecified organism; J44.0 Chronic obstructive pulmonary disease with (acute) lower respiratory infection; J44.1 Chronic obstructive pulmonary disease with (acute) exacerbation; E87.1 Hypo-osmolality and hyponatremia; I48.91 Unspecified atrial fibrillation; F17.210 Nicotine dependence, cigarettes, uncomplicated; I10 Essential (primary) hypertension; I42.9 Cardiomyopathy, unspecified; F19.10 Other psychoactive substance abuse, uncomplicated; E78.5 Hyperlipidemia, unspecified; E78.00 Pure hypercholesterolemia, unspecified; Z95.1 Presence of aortocoronary bypass graft; Z79.82 Long term (current) use of aspirin; Z79.899 Other long term (current) drug therapy; Z82.49 Family history of ischemic heart disease and other diseases of the circulatory system

== ENCOUNTER 2017-06-29 21:16 | Observation (INO) | payer MEDICAID ==
[~2017-06-29] VITALS: Ht 185.4 cm; Wt 115.7 kg
[~2017-06-29 21:16] MED LIST changes: +ATIVAN1 MG PO; +ELIQUIS5 MG PO; +LEVAQUIN 500 M500 M2 PO; +NICOTINE TRANSD21 M1; +NORCO 10-325 T1 EACH PO; +PACERONE 200 M200 M1 PO; +PRINIVIL20 M1 PO; +TYLENOL325 MG PO
[2017-06-29 21:18] VITALS: BP 147/98
[2017-06-29 21:53] LABS: ABSOLUTE BASOPHILS 0.1 thou/uL (0.0-0.2); ABSOLUTE EOSINOPHILS 0.1 thou/uL (0.0-0.7); ABSOLUTE LYMPHOCYTES 1.9 thou/uL (0.8-5.3); ABSOLUTE MONOCYTES 0.5 thou/uL (0.0-1.2); ABSOLUTE NEUTROPHILS 3.1 thou/uL (1.6-8.1); BASOPHILS 0.9 %; EOSINOPHILS 2.4 %; HEMATOCRIT 43.8 % (42.0-52.0); HEMOGLOBIN 15.1 gm/dL (14.0-18.0); MCH 33.2 pg (26.0-34.0); MCHC 34.5 g/dL (28.0-37.0); MCV 96.2 fL (80.0-100.0); MONOCYTES 8.4 %; MPV 7.7 fl. (7.2-11.1); NUCLEATED RBCS 0 /100WBC; PLATELET COUNT* 312 thou/uL (150-400); POLYS 55.3 %; RBC 4.56 mil/uL (4.50-6.00); RDW-CV 15.7 % (10.5-14.5); WBC 5.6 thou/uL (4.0-11.0)
[2017-06-29 21:57] LABS: ANION GAP 6 mmol/L (7-16); BUN 22 mg/dL (7-18); CALCIUM 8.6 mg/dL (8.5-10.1); CHLORIDE 102 mmol/L (98-107); CO2 30 mmol/L (21-32); GLUCOSE 124 mg/dL (70-99); POTASSIUM 4.3 mmol/L (3.5-5.1); SODIUM 138 mmol/L (136-145)
[2017-06-29 22:00] LABS: APTT 25.7 Seconds (25.0-31.3)
[2017-06-29 22:08] LABS: ALBUMIN 3.2 g/dL (3.4-5.0); ALKALINE PHOSPHATASE 59 U/L (46-116); LIPASE 138 U/L (73-393); NT-PRO BRAIN NAT PEPTIDE 845 pg/mL (<300); SGOT 14 U/L (15-37); SGPT 24 U/L (30-65); TOTAL BILIRUBIN 0.3 mg/dL (<0.1-1.0); TROPONIN-I LEVEL <0.06 ng/mL (<0.06)
[2017-06-29 22:25] LABS: BE -1.1 mmol/L (-2 to +3); HCO3 22.8 mmol/L (22.0-26.0); PCO2 35.9 mmHg (35.0-45.0); PO2 78.1 mmHg (75.0-100.0)
[2017-06-30 01:13] VITALS: BP 134/84
[2017-06-30 06:01] VITALS: BP 127/86
--- NOTE | 2017-06-30 09:23 | NUR ---
PROVIDED PT WITH BREAKFAST MEAL TRAY FOR REG DIET
--- NOTE | 2017-06-30 12:47 | EKG ---
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 : 1970 Requested By: Velma Pope Order Number: [id number] MD: Ryan Blair Measurements Intervals [place] Rate: 61 P: 148 VT: 188 QRS: 144 QRSD: 148 T: -31 QT: 463 QTc: 467 Interpretive Statements Sinus or ectopic atrial rhythm right axis Probable left atrial enlargement Right bundle branch block Compared to ECG 06/04/2017 09:17:23 right axis now noted Electronically Signed On 06-30-2017 12:46:47 LAUNDRY MACHINE MECHANIC by Ryan Blair [email or web address] <ELECTRONICALLY SIGNED> By: Ryan Blair MD, [facility] 06/30/17 1246 20 20 Ryan Blair MD, [facility] /EPI
--- NOTE | 2017-06-30 12:47 | EKG ---
[place] [address] ELECTROCARDIOGRAM REPORT Name: FARZANA STARKEY Room: [address] M.R.#: [id number] Admission: 06/30/17 Attend Phys: Shayy Will Discharge: Date of : 68 Report #: [id number] THIS REPORT FOR: //name// [facility] ED Test Date: 2017-06-29 Test Time: 21:27:00 Pat Name: FARZANA STARKEY Department: Room: [facility] Gender: M Nurse Case Management: GL : 1970 Requested By: Velma Pope Order Number: [id number] MD: Ryan Blair Measurements Intervals [place] Rate: 63 P: 131 KS: 198 QRS: 133 QRSD: 145 T: 150 QT: 460 QTc: 471 Interpretive Statements Sinus rhythm right axis Probable left atrial enlargement Right bundle branch block Electronically Signed On 06-30-2017 12:47:26 PATTERN MAKER by Ryan Blair [email or web address] <ELECTRONICALLY SIGNED> By: Ryan Blair MD, [facility] 06/30/17 1247 D: [id number] Ryan Blair MD, FACC /EPI
[2017-06-30 13:36] VITALS: BP 146/95
[2017-06-30 14:39] VITALS: BP 146/95
[2017-06-30 15:02] VITALS: BP 146/95
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
== END 2017-06-30 15:17 | disposition home or self-care (01) ==
LOC: M.ERS 21:16 → M.TBA-ER 06-30 00:04
PROVIDERS: Personal Emergency Response Attendant; ADMIT Internal Medicine
DX: I25.10 Atherosclerotic heart disease of native coronary artery without angina pectoris (principal); J20.9 Acute bronchitis, unspecified; F41.9 Anxiety disorder, unspecified; F43.9 Reaction to severe stress, unspecified; Z95.1 Presence of aortocoronary bypass graft; I10 Essential (primary) hypertension; E78.00 Pure hypercholesterolemia, unspecified; M54.9 Dorsalgia, unspecified; G89.29 Other chronic pain; E78.5 Hyperlipidemia, unspecified; F17.210 Nicotine dependence, cigarettes, uncomplicated; I25.2 Old myocardial infarction; I25.5 Ischemic cardiomyopathy; F19.21 Other psychoactive substance dependence, in remission; F10.21 Alcohol dependence, in remission; Z86.79 Personal history of other diseases of the circulatory system

== ENCOUNTER 2017-08-06 13:58 | Inpatient (IN) | payer MEDICAID ==
[~2017-08-06] VITALS: Ht 188 cm; Wt 109.8 kg
[2017-08-06 14:04] VITALS: BP 116/77
[2017-08-06 14:41] LABS: HEMATOCRIT 45.5 % (42.0-52.0); HEMOGLOBIN 15.1 gm/dL (14.0-18.0); MCH 33.4 pg (26.0-34.0); MCHC 33.3 g/dL (28.0-37.0); MCV 100.5 fL (80.0-100.0); MPV 7.7 fl. (7.2-11.1); NUCLEATED RBCS 0 /100WBC; PLATELET COUNT* 265 thou/uL (150-400); RBC 4.53 mil/uL (4.50-6.00); RDW-CV 15.8 % (10.5-14.5); WBC 14.1 thou/uL (4.0-11.0)
[2017-08-06 14:48] LABS: INR 1.4; PROTIME 13.5 Seconds (9.20-11.50)
[2017-08-06 14:50] LABS: URINE BILIRUBIN NEGATIVE (Negative); URINE BLOOD 2+ (Negative); URINE CLARITY SL CLOUDY; URINE COLOR YELLOW; URINE GLUCOSE-RANDOM 2+ (Negative); URINE KETONES NEGATIVE (Negative); URINE LEUKOCYTES-REFLEX NEGATIVE (Negative); URINE NITRITE-REFLEX NEGATIVE (Negative); URINE PROTEIN 1+ (Negative); URINE SPECIFIC GRAVITY >= 1.030 (1.005-1.030)
[2017-08-06 14:53] LABS: CALCIUM 9.1 mg/dL (8.5-10.1); POTASSIUM 4.8 mmol/L (3.5-5.1)
[2017-08-06 14:55] LABS: ABSOLUTE LYMPHOCYTES 0.6 thou/uL (0.8-5.3); ABSOLUTE MONOCYTES 0.4 thou/uL (0.0-1.2); ABSOLUTE NEUTROPHILS 13.1 thou/uL (1.6-8.1); ATYPICAL LYMPHS 1 %; PLATELET ESTIMATE ADEQUATE
[2017-08-06 14:58] LABS: ACETAMINOPHEN 2 ug/mL (10-30); ALCOHOL < 10 mg/dL (<10); SALICYLATE 4.8 mg/dL (2.8-20.0)
[2017-08-06 14:59] LABS: AMP/METHAMP POSITIVE (Negative); BARBITURATES Negative (Negative); BENZODIAZEPINES POSITIVE (Negative); COCAINE Negative (Negative); METHADONE Negative (Negative); OPIATES POSITIVE (Negative); PCP Negative (Negative); THC Negative (Negative)
[2017-08-06 15:00] LABS: SQUAMOUS 4-10 Moderate /LPF (0-3)
[2017-08-06 15:01] LABS: BACTERIA-REFLEX 1-9 Few /HPF (None Seen); URINE RBC 0-2 Rare /HPF (0-2); URINE WBC-REFLEX None Seen /HPF (0-5)
[2017-08-06 15:02] LABS: AMORPHOUS URATES Few /LPF (None Seen); HYALINE CASTS 0-3 Few /LPF (None Seen); MUCUS 4-6 Moderate strn/LPF (None Seen)
[2017-08-06 15:02] LABS: ALBUMIN 3.5 g/dL (3.4-5.0); CK-MB MASS 8.9 ng/mL (<0.5-3.6); TOTAL BILIRUBIN 1.1 mg/dL (<0.1-1.0); TOTAL PROTEIN 7.5 g/dL (6.4-8.2); TROPONIN-I LEVEL 0.31 ng/mL (<0.06)
[2017-08-06 16:33] LABS: BE -6.6 mmol/L (-2 to +3); HCO3 20.1 mmol/L (22.0-26.0); PCO2 44.2 mmHg (35.0-45.0)
[2017-08-06 16:37] LABS: pH 7.276 (7.340-7.450)
[2017-08-06 16:45] LABS: DIRECT BILIRUBIN 0.9 mg/dL (<0.1-0.3); TOTAL BILIRUBIN 1.2 mg/dL (<0.1-1.0)
--- NOTE | 2017-08-06 18:14 | EKG ---
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
[2017-08-06 19:12] VITALS: BP 142/85
--- NOTE | 2017-08-06 19:30 | NUR ---
ASSESSMENT AND VS OBTAINED. 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 PT IS AXOX4 BUT VERY SLEEPY. ADMISSION HISTORY AND ASSESSMENT WERE DONE. PT STATES THAT HE DRINKS 1 GALLON OF WHISKEY A DAY. METH IS HIS DRUG OF CHOICE. PT HAS BEENDX WITH DEPRESSION, ANXIETY, BIPOLAR AND SCHIEZOPARIN HE STATES THAT HE TAKES ATIVAN 2 MG A DAY AND CYMBALTA. HE STATES THAT HE TAKES VICODIN 10-325MG FOR HIS LOWER BACK PAIN. HE STATES THAT HIS DR IS DR FAIRBANKS. HE STATES THAT HIM AND HIS ARE NOT TOGETHER BUT HE WANTED ME TO CALL HER.
[2017-08-06 20:00] VITALS: BP 123/81
--- NOTE | 2017-08-06 20:00 | NUR ---
SPOKE TO HIS DINA AND EXPLAINED TO HER WHAT HAD HAPPENED AND SHE STATED THAT HE HAS BEEN DOING METH AND DRINKING FOR AWILE. SHE STATED THAT WE NEEDED TO TALK TO HIS FATHER. CALLED HIS FATHER AND SPOKE TO HIM. EXPLAINED TO HIM WHAT HAD HAPPENED AND HE DIDN'T SOUND SURPRISED. ASKING HIS FATHER ABOUT THE MEDS HE TAKES HE STATED THAT HE HASN'T BEEN ON ANY MEDS FOR 8 YRS. 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 ASKED ABOUT HIM LIVING IN A HOUSE AND FATHER STATED THAT THE PT IS HOMELESS. FATHER STATED THAT THE PT NEEDS TO BE ADMITTED FOR PYSCH REASONS OR PUT IN A HALF WAY HOUSE. FATHER WILL BE IN [place] TO SEE HIM.
--- NOTE | 2017-08-06 21:50 | NUR ---
WES A FRIEND OF PT CALLED ASKING HOW PT WAS BECAUSE HE WAS THE ONE THAT FOUND HIM UNRESPONSIVE IN HIS HOUSE. TRANSFERRED CALL INTO PT'S ROOM AND PT TALKED TO HIM.
[2017-08-06 22:00] VITALS: BP 139/83
--- NOTE | 2017-08-06 22:35 | NUR ---
CRITICAL TROP CALLED TO THE UNIT ON PT JAKY FOR A TROP OF 1.86. PT HAS NO PAIN AT THIS TIME. DR MERAZ WANTS A TROP DONE IN 6 HRS.
[2017-08-06 23:00] VITALS: BP 142/80
--- NOTE | 2017-08-06 23:21 | NUR ---
SPOKE TO DR MEARZ FOR THE CARDIO CONSULT AND THE ELEVATED TROP OF 0.75. PT HAS NO CP AT THIS TIME. DR MERAZ GAVE NO ORDERS.
[2017-08-07] VITALS (7 sets, daily range): BP systolic 129–144; BP diastolic 74–86
[2017-08-07 04:36] LABS: HEMATOCRIT 41.1 % (42.0-52.0); HEMOGLOBIN 13.6 gm/dL (14.0-18.0); MCH 32.7 pg (26.0-34.0); MCV 98.9 fL (80.0-100.0); MPV 7.9 fl. (7.2-11.1); RBC 4.16 mil/uL (4.50-6.00); RDW-CV 15.7 % (10.5-14.5); WBC 11.9 thou/uL (4.0-11.0)
[2017-08-07 04:47] LABS: CALCIUM 8.6 mg/dL (8.5-10.1); CREATININE 1.7 mg/dL (0.6-1.3); POTASSIUM 5.2 mmol/L (3.5-5.1)
[2017-08-07 04:56] LABS: ALBUMIN 3.2 g/dL (3.4-5.0); MAGNESIUM 1.9 mg/dL (1.8-2.4); TOTAL BILIRUBIN 0.9 mg/dL (<0.1-1.0); TOTAL PROTEIN 6.1 g/dL (6.4-8.2)
[2017-08-07 05:11] LABS: HIV-1/HIV-2 ANTIBODY Non Reactive (Non Reactive)
--- NOTE | 2017-08-07 06:23 | NUR ---
PROGRESSION TOWARDS GOALS. ASSESSMENT AND VS OBTAINED, SEE CHARTING. FLASK CARRIER ON AND TRACING SR. NO CHEST PAIN NOW OR THROUGH OUT THE NIGHT. TROP HAS BBEN RISING ALL NIGHT AND DR MERAZ NOTIFIED FOR ALL AND NO NEW ORDERS. PT HAS NC 2L ON AND MAINTAINING 96-100% SATS.
[2017-08-07 10:59] LABS: APTT 30.3 Seconds (25.0-31.3); INR 1.3
--- NOTE | 2017-08-07 15:24 | NUR ---
.ASSUMED CARE OF PATIENT THIS AM AT 0730. PATIENT IS LETHARGIC, DROWSY, BUT ORIENTED X 4. HE DENIES CHEST PAIN BUT C/O SOME GENERALIZED LOW BACK PAIN. DR LY IN TO ROUND AND ORDERS TO DOWNGRADE TO TELE STATUS. DR VENTURA IN TO SEE PATIENT IN THE ICU. ORDERS WRITTEN. PATIENT TRANSFERRED TO [facility] PER W/C THIS AM. PLACED ON TELE MONITOR. IV HEPARIN GTT STARTED AFTER BASELINE LABS DRAWN. PATIENT STARTED ON A HEART HEALTHY DIET. TELE SHOWS SR. NO C/O CHEST PAIN. PATIENT CONTINUES DROWSY. RESTING IN BED. CALL LIGHT IS IN REACH. NO FALLS OR INJURY.
[2017-08-08] VITALS: BP 128/85
[2017-08-08 01:15] LABS: HEMATOCRIT 39.7 % (42.0-52.0); HEMOGLOBIN 13.4 gm/dL (14.0-18.0); MCH 32.9 pg (26.0-34.0); MCHC 33.8 g/dL (28.0-37.0); MCV 97.5 fL (80.0-100.0); RBC 4.07 mil/uL (4.50-6.00); RDW-CV 15.5 % (10.5-14.5); WBC 6.3 thou/uL (4.0-11.0)
[2017-08-08 01:28] LABS: APTT 43.9 Seconds (25.0-31.3); INR 1.3; PROTIME 12.7 Seconds (9.20-11.50)
[2017-08-08 01:41] LABS: ALBUMIN 2.8 g/dL (3.4-5.0); CALCIUM 8.4 mg/dL (8.5-10.1); CREATININE 1.7 mg/dL (0.6-1.3); DIRECT BILIRUBIN 0.3 mg/dL (<0.1-0.3); MAGNESIUM 1.9 mg/dL (1.8-2.4); POTASSIUM 4.3 mmol/L (3.5-5.1); TOTAL BILIRUBIN 0.6 mg/dL (<0.1-1.0); TOTAL PROTEIN 5.8 g/dL (6.4-8.2)
[2017-08-08 02:05] LABS: HEPATITIS B SURFACE AG Negative (Negative)
[2017-08-08 04:00] VITALS: BP 127/78
--- NOTE | 2017-08-08 07:50 | NUR ---
A&O X4 CALM COOPERITVE. PT SR-SB BBB ON THE MONITOR. PT STAND BY ASSIST. PT HAD A BM THIS AM. PT DISCONTIINUED IV. NEW IV STARTED IN RIGHT AC. HEPRIN DRIP AT 1400 GIVEN X1 BOLUS. PT HAD PAIN IN BACK GIVEN MEDICATION WITH PARTIAL RELIEF NOTED. VITALS WNL. FALL PRECATUIONS IN PLACE. HOURLY ROUNDING FOR SAFETY.
[2017-08-08 08:39] VITALS: BP 140/89
[2017-08-08 11:56] VITALS: BP 133/91
--- NOTE | 2017-08-08 12:59 | EKG ---
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 : 1970 Requested By: Markus Calvo Order Number: [id number] Reading MD: Juan Carlos Carlos Measurements Intervals [place] Rate: 59 P: 40 OR: 198 QRS: 68 QRSD: 167 T: 34 QT: 507 QTc: 503 Interpretive Statements Sinus rhythm Right bundle branch block Compared to ECG 08/06/2017 14:29:49 No significant changes Electronically Signed On 08-08-2017 12:59:43 CDT by Juan Carlos Carlos [email or web address] <ELECTRONICALLY SIGNED> By: Barbara Carlos MD, [facility] 08/08/17 1259 050 0501 Barbara Carlos MD, [facility] /EPI
[2017-08-08 15:17] VITALS: BP 151/101
--- NOTE | 2017-08-08 15:28 | NUR ---
ASSUMED CARE OF PATIENT THIS AM AT 0730. PATIENT CONTINUES DROWSY TODAY. HE C/O INTERMITTENT BACK PAIN. PATIENT GIVEN PO TYLENOL. HE WAKES UP AND EATS AND THEN GOES BACK TO SLEEP. HEPARIN GTT CONTINUED PER ORDER. HIS PTT IS STILL NOT THERAPUETIC AT THIS TIME. PATIENT HAS BEEN UP TO THE BATHROOM WITH STANDBY ASSIST. TELE SHOWS SR WITH 1D AVB AND BBB. PATIENT DENIES CHESTPAIN AND SOA. WILL CONTNIUE TO MONITOR. SIDERAILS ARE UP AND BEDALARM IS ON.
[2017-08-08 20:00] VITALS: BP 158/92
[2017-08-09] VITALS: BP 144/90
[2017-08-09 04:00] VITALS: BP 130/89
--- NOTE | 2017-08-09 05:25 | NUR ---
A&O X4 CALM COOPERITVE. ADLIB. PT ON HEPRIN DRIP. SR BBB ON THE MONITOR. PT EXPRESSED WANT TO GO HOME ON WEDNESDAY MORNING. PT GIVEN IMODIUM FOR LOOSE STOOLS. VITALS WNL. HOURLY RONDING FOR SAFETY.
[2017-08-09 05:33] LABS: HEMATOCRIT 38.7 % (42.0-52.0); MCH 32.3 pg (26.0-34.0); MCHC 33.7 g/dL (28.0-37.0); MCV 95.9 fL (80.0-100.0); MPV 8.4 fl. (7.2-11.1); RBC 4.04 mil/uL (4.50-6.00); RDW-CV 15.2 % (10.5-14.5); WBC 6.3 thou/uL (4.0-11.0)
[2017-08-09 05:52] LABS: ALBUMIN 2.6 g/dL (3.4-5.0); CALCIUM 8.7 mg/dL (8.5-10.1); CREATININE 1.2 mg/dL (0.6-1.3); MAGNESIUM 1.5 mg/dL (1.8-2.4); POTASSIUM 3.3 mmol/L (3.5-5.1); TOTAL PROTEIN 5.8 g/dL (6.4-8.2)
[2017-08-09 08:00] VITALS: BP 120/76
[2017-08-09] MEDS ORDERED: METOPROLOL SUCC25 M1 PO (08:38)
[2017-08-09] MEDS ORDERED: IMDUR 30 MG TAB30 M1 PO (08:38)
[2017-08-09] MEDS ORDERED: PACERONE 200 M200 M1 PO (08:38)
[2017-08-09] MEDS ORDERED: ASPIR 8181 MG PO (08:38)
[2017-08-09 09:18] VITALS: BP 130/89
[2017-08-09 12:00] VITALS: BP 110/69
--- NOTE | 2017-08-09 14:06 | NUR ---
PT TO DISCHARGE HOME WAITING ON RIDE SHOULD BE AROUND 1700/1730 PT IS ALERT AND ORIENTED AND SLEPT THROUGHOUT DAY CARDIOLOGY SIGNED OFF C/O PAIN TO BACK BUT STILL RESTING T/O DAY
--- NOTE | 2017-08-09 17:16 | NUR ---
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
== END 2017-08-09 17:17 | disposition home or self-care (01) | DRG 917 ==
LOC: M.ERS 13:58 → M.2W 15:44 → M.TBA-ER 15:44 → M.ICU 18:58 → M.2W 08-07 09:53
PROVIDERS: Emergency Medicine; Internal Medicine; ADMIT Internal Medicine
PROC: 5A12012 Performance of Cardiac Output, Single, Manual (ICD-10-PCS; principal; 2017-08-07)
DX: T40.601A Poisoning by unspecified narcotics, accidental (unintentional), initial encounter (principal); I21.4 Non-ST elevation (NSTEMI) myocardial infarction; R09.2 Respiratory arrest; N17.0 Acute kidney failure with tubular necrosis; G92 Toxic encephalopathy; B17.9 Acute viral hepatitis, unspecified; I50.22 Chronic systolic (congestive) heart failure; M62.82 Rhabdomyolysis; I13.0 Hypertensive heart and chronic kidney disease with heart failure and stage 1 through stage 4 chronic kidney disease, or unspecified chronic kidney disease; K76.0 Fatty (change of) liver, not elsewhere classified; E78.00 Pure hypercholesterolemia, unspecified; I25.10 Atherosclerotic heart disease of native coronary artery without angina pectoris; N18.3 Chronic kidney disease, stage 3 (moderate); I45.10 Unspecified right bundle-branch block; I48.91 Unspecified atrial fibrillation; I25.5 Ischemic cardiomyopathy; F10.10 Alcohol abuse, uncomplicated; F15.10 Other stimulant abuse, uncomplicated; F12.10 Cannabis abuse, uncomplicated; F13.10 Sedative, hypnotic or anxiolytic abuse, uncomplicated; F17.210 Nicotine dependence, cigarettes, uncomplicated; Z95.1 Presence of aortocoronary bypass graft; Z79.01 Long term (current) use of anticoagulants; Y92.89 Other specified places as the place of occurrence of the external cause; Z79.82 Long term (current) use of aspirin; Z79.899 Other long term (current) drug therapy; Z82.49 Family history of ischemic heart disease and other diseases of the circulatory system

== ENCOUNTER → 2018-04-28 | Emergency (ER) | payer MEDICAID ==
[~2018-04-28] VITALS: Ht 182.9 cm; Wt 113.4 kg
[~2018-04-28] MED LIST changes: +ASPIR 8181 MG PO; +IMDUR 30 MG TAB30 M1 PO; +METOPROLOL SUCC25 M1 PO
== END ==
LOC: M.ERS 12:51
DX: Z53.21 Procedure and treatment not carried out due to patient leaving prior to being seen by health care provider (principal)

== ENCOUNTER 2018-05-13 17:57 | Inpatient (IN) | payer MEDICAID ==
[~2018-05-13] VITALS: Ht 182.9 cm; Wt 127.5 kg
--- NOTE | ~2018-05-13 | EEG ---
[address] [address] EEG STUDY REPORT Name: FARZANA STARKEY Baldemar Room: [address] IN M.R.#: [id number] Admission: 05/14/18 Attend Phys: Dimple May MD Discharge: Date of : 68 Report #: [id number] THIS REPORT FOR: //name// CC: [facility] physician/PCP Dimple May DATE OF SERVICE: 05/18/2018 This patient is being evaluated for CVA. EEG was done by placing the electrode by standard 10-20 system of electrode placement. Both referential and sequential montages were used for recording. Background activity is slow on both sides. It is about 8 Hz and 30 microvolt. The patient became drowsy that is associated with bilateral slowing. Photic stimulation is unremarkable. Throughout the record, no active epileptiform activity was noticed. IMPRESSION: This patient's EEG is intermixed with theta range slowing on both sides. That is a nonspecific abnormality, which can occur with encephalopathy, dementia, effect of psychotropic medication, etc. Clinical correlation is recommended. By: [id number] Geiger MD /nt
--- NOTE | ~2018-05-13 | CON ---
[address] [address] CONSULTATION Name: FARZANA STARKEY Room: [address] IN M.R.#: [id number] Admission: 05/14/18 Attend Phys: Dimple May MD Discharge: Date of : 68 Report #: [id number] THIS REPORT FOR: //name// CC: [facility] physician/PCP Dimple May DATE OF SERVICE: 05/14/2018 HISTORY OF PRESENT ILLNESS: The patient is a 48-year-old man who was brought to the Emergency Department yesterday with left-sided weakness and facial droop. No family members or friends are here. The initial history indicated that he was last normal about 1:00 in the afternoon. He had been drinking alcohol. He does have a history of using methamphetamines and urine toxicology showed presence of methamphetamine as well as benzodiazepine and opiates. He himself was unable to relay a history. He had been noted to have marked slurred speech and was complaining of some back pain. The initial workup showed an unremarkable CT scan; however, a CT angiogram showed a complete occlusion of the right internal carotid artery distal to the bifurcation. [facility] was contacted to consider a transfer; however, the chart indicates that they did not feel further intervention was available. His history obtained from the computerized record indicates a history of atrial fibrillation and coronary artery disease. He had a bypass graft surgery in 2008. He has a history of COPD as well as hypertension and cardiomyopathy. He has continued to both smoke and drink. SOCIAL HISTORY: Positive for smoking, alcohol and drug abuse. FAMILY HISTORY: Not obtainable. REVIEW OF SYSTEMS: Not obtainable except he does have complaints of low back pain. PHYSICAL EXAMINATION: VITAL SIGNS: Blood pressure 150/102. GENERAL: The patient is lying in bed. He is overweight, well developed, severely dysarthric, but does alert and awake to questions. NECK: Supple. EXTREMITIES: There is mild pedal edema. NEUROLOGIC: He does open his eyes and does try to communicate; however, he is very dysarthric and hard to understand. He does follow commands to move his eyes to the right and to the left. Pupils were small, but equally round and reactive. He could raise his eyebrows well, but the lower face was weak on the left. He could [place] [address] CONSULTATION Name: FARZANA STARKEY Room: [address]#: [id number] Admission: 05/14/18 Attend Phys: Dimple May MD Discharge: Date of : 68 Report #: [id number] He could raise his right arm and move his right leg well. The left leg and left arm, however, demonstrated 0/5 power. He did appreciate pin on the right appropriately, but not on the left. Reflexes were brisk on the right and brisk on the left as well. The left toe was upgoing. DIAGNOSTIC DATA: The patient's ECG showed multiple PVCs. He is not in atrial fibrillation at the present time. IMPRESSION: Complete occlusion of the right internal carotid artery, most likely cardioembolic in nature. The patient does have evidence on CT angiogram of collateral flow through the tulalip of [place]. Echocardiogram has been ordered as per stroke protocol. He is on anticoagulation. The patient will have a swallow study. The patient was methamphetamine positive on urine and the cause of the stroke could have been related to a vasculitis from methamphetamine as well. MRI imaging recommended as well. By: [id number] Bucio MD /nt
[2018-05-13 18:15] VITALS: BP 146/114
[2018-05-13 18:37] LABS: ABSOLUTE BASOPHILS 0.1 thou/uL (0.0-0.2); ABSOLUTE MONOCYTES 0.5 thou/uL (0.0-1.2); ABSOLUTE NEUTROPHILS 5.7 thou/uL (1.6-8.1); BASOPHILS 1.2 %; EOSINOPHILS 0.6 %; HEMATOCRIT 46.5 % (42.0-52.0); HEMOGLOBIN 14.9 gm/dL (14.0-18.0); LYMPHOCYTES 13.6 %; MCH 30.3 pg (26.0-34.0); MCHC 32.2 g/dL (28.0-37.0); MCV 94.1 fL (80.0-100.0); MPV 7.8 fl. (7.2-11.1); NUCLEATED RBCS 0 /100WBC; PLATELET COUNT* 340 thou/uL (150-400); POLYS 77.6 %; RBC 4.93 mil/uL (4.50-6.00); RDW-CV 19.2 % (10.5-14.5); WBC 7.3 thou/uL (4.0-11.0)
[2018-05-13 18:46] LABS: CALCIUM 8.9 mg/dL (8.5-10.1); CREATININE 1.1 mg/dL (0.6-1.3); POTASSIUM 3.7 mmol/L (3.5-5.1)
[2018-05-13 18:53] LABS: ALBUMIN 2.6 g/dL (3.4-5.0); TOTAL BILIRUBIN 1.4 mg/dL (<0.1-1.0); TOTAL PROTEIN 8.1 g/dL (6.4-8.2); TROPONIN-I LEVEL 0.3 ng/mL (<0.06)
[2018-05-13 19:03] LABS: POC CA IONIZED 4.7 mg/dL (4.5-5.3); POC CREATININE 1.1 mg/dL (0.6-1.3); POC HEMOGLOBIN 17.7 g/dL (12.0-17.0); POC POTASSIUM 3.7 mmol/L (3.5-4.9)
[2018-05-13 19:21] LABS: APTT 28.5 Seconds (25.0-31.3); INR 1.3; PROTIME 12.8 Seconds (9.20-11.50)
[2018-05-13 19:22] LABS: ACETAMINOPHEN < 2 ug/mL (10-30); ALCOHOL 41 mg/dL (<10); SALICYLATE < 2.8 mg/dL (2.8-20.0)
[2018-05-13 19:33] LABS: BE -3.2 mmol/L (-2 to +3); PCO2 39.9 mmHg (35.0-45.0); PO2 80.7 mmHg (75.0-100.0); pH 7.359 (7.340-7.450)
[2018-05-13 19:42] LABS: URINE BLOOD NEGATIVE (Negative); URINE CLARITY CLEAR; URINE COLOR YELLOW; URINE GLUCOSE-RANDOM NEGATIVE (Negative); URINE KETONES NEGATIVE (Negative); URINE LEUKOCYTES-REFLEX NEGATIVE (Negative); URINE NITRITE-REFLEX NEGATIVE (Negative); URINE PROTEIN TRACE (Negative); URINE SPECIFIC GRAVITY >= 1.030 (1.005-1.030)
[2018-05-13 19:47] LABS: URINE BILIRUBIN 2+ (Negative)
[2018-05-13 19:48] LABS: AMP/METHAMP POSITIVE (Negative); BARBITURATES Negative (Negative); BENZODIAZEPINES POSITIVE (Negative); COCAINE Negative (Negative); METHADONE Negative (Negative); OPIATES POSITIVE (Negative); PCP Negative (Negative); THC Negative (Negative)
[2018-05-13 19:49] LABS: BACTERIA-REFLEX 1-9 Few /HPF (None Seen); CASTS None Seen /LPF (None Seen); CRYSTALS None Seen /LPF (None Seen); ICTOTEST (BILI CONFIRMATORY) Negative (Negative); SQUAMOUS NONE SEEN /LPF (0-3); URINE RBC 0-2 Rare /HPF (0-2); URINE WBC-REFLEX None Seen /HPF (0-5)
[2018-05-14] VITALS (21 sets, daily range): BP systolic 117–150; BP diastolic 74–104
[2018-05-14 01:07] LABS: BE -4.6 mmol/L (-2 to +3); HCO3 22.5 mmol/L (22.0-26.0); PCO2 48.8 mmHg (35.0-45.0); pH 7.281 (7.340-7.450)
--- NOTE | 2018-05-14 01:30 | NUR ---
PATIENT ARRIVED TO UNIT @ 0115. EXPRESSIVE APHASIA NOTED. PT MUMBLES AT TIMES TO THE POINT ITS INCOMPREHENSIBLE. UNABLE TO DO A FULL NIH D/T PT CURRENT STATE HE IS NOT WILLING TO COOPERATE. HAS EYES CLOSED, NOT RESPONDING TO VERBAL COMMANDS
[2018-05-14 01:57] LABS: HEMATOCRIT 42.8 % (42.0-52.0); HEMOGLOBIN 13.7 gm/dL (14.0-18.0); MCH 30.6 pg (26.0-34.0); MCHC 31.9 g/dL (28.0-37.0); MCV 95.8 fL (80.0-100.0); RBC 4.47 mil/uL (4.50-6.00); RDW-CV 19.5 % (10.5-14.5); WBC 6.7 thou/uL (4.0-11.0)
--- NOTE | 2018-05-14 02:10 | NUR ---
TUBE FFEDING VIA OG AND VERSED GTT FOR SEDATION, STOPPED AT 0200 FOR AM TTT.
[2018-05-14 02:13] LABS: ALBUMIN 2.2 g/dL (3.4-5.0); CALCIUM 8.1 mg/dL (8.5-10.1); CREATININE 1.1 mg/dL (0.6-1.3); TOTAL BILIRUBIN 1.2 mg/dL (<0.1-1.0)
--- NOTE | 2018-05-14 06:07 | NUR ---
PATIENT PROGRESSING. HE IS MORE ALERT ANSWERED LOC QUESTION APPROPRIATLY, FALLOWS COMMANDS. NIH 13. SIGNIFICANT FACIAL DROOPING. PT UNABLE TO PROVIDE EFFORT AGAINST GRAVITY ON LEFT ARM AND LEG. PT CURRENT CONCERN IS HIS BACK PAIN. STATES "I HAVE HORRIBLE BACK PAIN ITS SIGNIFICANT BAD PAIN" CHANGED BED POSITION, ADDED PILLOWS TO SUPPORT BACK. SPOKE WITH EX BY PHONE THIS A.M UPDATED ON PLAN OF CARE AND PT CURRENT STATE. NO FURTHER CONCERNS AT THIS TIME. SHE WILL BE STOPPING BY THIS A.M. PT REMAINS ON BIPAP TOLERATING WELL. BED TO LOWEST POSITION. CALL LIGHT WITH IN REACH. WILL CONTINUE TO MONITOR.
[2018-05-14 08:47] LABS: PCO2 45.8 mmHg (35.0-45.0)
[2018-05-14 08:48] LABS: BE -1.2 mmol/L (-2 to +3); HCO3 24.7 mmol/L (22.0-26.0); PO2 77.3 mmHg (75.0-100.0)
--- NOTE | 2018-05-14 10:24 | NUR ---
8863 ASSUMED CARE OF PATIENT. SEE ASSESSMENT AND NIH SCORING. DR TORRES TO SEE PATIENT
[2018-05-14 10:25] LABS: CHOLESTEROL 95 mg/dL (<200); HDL CHOLESTEROL 28 mg/dL (>40); LDL CHOLESTEROL 55 mg/dL (<100); TC:HDL 3.4 Ratio (Not establshd); TRIGLYCERIDE 61 mg/dL (<150); VLDL 12 mg/dL (<40)
[2018-05-14 10:53] LABS: SERUM ASSESSMENT Clear
--- NOTE | 2018-05-14 12:32 | NUR ---
DR MENESES NOTIFIED OF MRI NOT BEING DONE TODAY. HE IS SATISFIED WITH THAT
[2018-05-14] MEDS ORDERED: ELIQUIS5 MG PO (12:34)
[2018-05-14] MEDS ORDERED: PRINIVIL20 MG PO (12:44)
[2018-05-14] MEDS ORDERED: CYMBALTA60 MG PO (12:45)
[2018-05-14] MEDS ORDERED: TOPROL XL25 MG PO (12:46)
[2018-05-14] MEDS ORDERED: IMDUR 30 MG TAB30 M1 PO (12:47)
[2018-05-14] MEDS ORDERED: CRESTOR40 MG PO (12:47)
[2018-05-14] MEDS ORDERED: LASIX 40 MG TAB40 M2 PO (12:48)
[2018-05-14] MEDS ORDERED: ZETIA10 MG PO (12:48)
[2018-05-14] MEDS ORDERED: NITROGLYCERIN0.4 MG SUBLING (12:49)
[2018-05-14] MEDS ORDERED: VENTOLIN HFA 1818 GM INH (12:49)
--- NOTE | 2018-05-14 13:28 | NUR ---
DR TORRES UPDATED ON HOME MEDS
--- NOTE | 2018-05-14 13:29 | NUR ---
PATIENT SEEN BY SPEECH AND TAKING REGULAR DIET
--- NOTE | 2018-05-14 14:59 | EKG ---
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: : 1970 Requested By: Raza Malloy Order Number: [id number] MD: Ryan Blair Measurements Intervals Hoffman Rate: 69 P: 54 OK: 188 QRS: 94 QRSD: 165 T: 8 QT: 502 QTc: 538 Interpretive Statements Sinus rhythm Multiform ventricular premature complexes Probable left atrial enlargement Right bundle branch block Compared to ECG 08/07/2017 05:01:43 Ventricular premature complex(es) now present Electronically Signed On 05-14-2018 14:59:42 [employer]ATIVE [employer]AD by Ryan Blair [email or web address] <ELECTRONICALLY SIGNED> By: Ryan Blair MD, FACC 05/14/18 1459 [id number] Ryan Blair MD, [facility] /EPI
--- NOTE | 2018-05-14 17:16 | NUR ---
PATIENT WITH SOME PROGRESSION TOWARDS GOALS. SEE NIH SCORING. STARTED ON HEPARIN DRIP. WORKED WITH THERAPIES AND CAN HAVE DIET DIRECTED. LEFT SIDE DOES NOT MOVE. NUMEROUS VISITORS
--- NOTE | 2018-05-14 18:23 | NUR ---
1800 PLACED ON BIPAP PER PATIENT REQUEST
[2018-05-14 22:10] LABS: GLYCOHEMOGLOBIN (HGB A1C) 6.2 % (4.8-5.6)
[2018-05-15] VITALS (18 sets, daily range): BP systolic 106–146; BP diastolic 60–97
[2018-05-15 04:03] LABS: HEMATOCRIT 42.8 % (42.0-52.0); HEMOGLOBIN 13.8 gm/dL (14.0-18.0); MCH 30.6 pg (26.0-34.0); MCHC 32.3 g/dL (28.0-37.0); MCV 94.7 fL (80.0-100.0); RBC 4.52 mil/uL (4.50-6.00); RDW-CV 19.2 % (10.5-14.5); WBC 6.5 thou/uL (4.0-11.0)
[2018-05-15 04:17] LABS: ALBUMIN 1.9 g/dL (3.4-5.0); CREATININE 0.9 mg/dL (0.6-1.3); MAGNESIUM 1.9 mg/dL (1.8-2.4); POTASSIUM 4.6 mmol/L (3.5-5.1); TOTAL BILIRUBIN 1.7 mg/dL (<0.1-1.0); TOTAL PROTEIN 6.6 g/dL (6.4-8.2); TROPONIN-I LEVEL 0.17 ng/mL (<0.06)
[2018-05-15 05:38] LABS: BE -2.8 mmol/L (-2 to +3); HCO3 22.3 mmol/L (22.0-26.0); PCO2 39.9 mmHg (35.0-45.0); PO2 73.7 mmHg (75.0-100.0); pH 7.365 (7.340-7.450)
--- NOTE | 2018-05-15 05:55 | NUR ---
PATIENT SLOWLY PROGRESSING TOWARDS GOALS. NIH 12. NO MOVEMENT ON LEFT SIDE. DID NOTICE TWITCHING/JERKS ON LEFT FOOT BUT DID NOT RESPOND TO COMMANDS WHEN ASKED TO MOVE LIMB. REMAINS SR ON MONITOR WITH PVS. BIPAP USED THROUGHOUT NIGHT CHANGED TO NASAL FORM TO MAINTAIN SKIN INTEGRITY. AROUND O4OO THIS A.M HE BECAME EXTREMELY AGITATED SCREAMING THE MASK WAS CHOKING HIM WHILE PERSISTING TO TAKE IT OFF, HE BECAME TAHYPNEIC BREATHING IN 40'S. TRIED TO CALM PT DOWN NO RESPONSE. PT RECIEVED ATIVAN VITAL SIGNS NORMALIZED. RECEIVED MOUTH SWABS AND THICKEND WATER. HE CONTINUES TO ASK FOR REGULAR WATER. PT SISTER NADER RCONIN CAME IN LAST NIGHT STATED PT HAS BEEN DECLINING SINCE GRANDFATHER SHE STATED "HE HAS BEEN ON A ROAD OF DISTRUCTION AND DOESNT CARE ABOUT HIMSELF" SHE SAID HIS MANAGER [employer] SALES TOLD HIM HE HAS A BAD HEART. SHE HAS REQUESTED TO SPEAK TO CASE MANAGEMENT
--- NOTE | 2018-05-15 09:07 | NUR ---
[address] PER BED WITH RN
--- NOTE | 2018-05-15 09:07 | NUR ---
7754 ASSUMED CARE OF PATIENT. SEE DOCUMENTED ASSESSMENT AND NIH CHARTING. LAITH AND DR TORRES TO SEE PATIENT. PLACED ON NASAL CANNULA.
--- NOTE | 2018-05-15 15:10 | NUR ---
DR MOLINA TO SEE PATIENT AND ORDERS NOTED
--- NOTE | 2018-05-15 17:34 | NUR ---
PATIENT WITH SOME PROGRESSION TOWARDS GOALS. WAS EATING WELL BUT MADE NPO EXCEPT MEDS BY DR MOLINA. ON BIPAP PRN. DIURESED. NIH UNCHANGED. MANY VISITORS
[2018-05-15 18:22] LABS: CALCIUM 8.7 mg/dL (8.5-10.1); CREATININE 1.1 mg/dL (0.6-1.3); MAGNESIUM 2.2 mg/dL (1.8-2.4); POTASSIUM 4.2 mmol/L (3.5-5.1)
[2018-05-16] VITALS (17 sets, daily range): BP systolic 109–133; BP diastolic 67–105
[2018-05-16 03:50] LABS: HEMATOCRIT 41.7 % (42.0-52.0); HEMOGLOBIN 13.4 gm/dL (14.0-18.0); MCH 30.4 pg (26.0-34.0); MCHC 32.2 g/dL (28.0-37.0); MCV 94.4 fL (80.0-100.0); MPV 7.9 fl. (7.2-11.1); NUCLEATED RBCS 0 /100WBC; PLATELET COUNT* 254 thou/uL (150-400); RBC 4.42 mil/uL (4.50-6.00); RDW-CV 19.3 % (10.5-14.5); WBC 5.3 thou/uL (4.0-11.0)
[2018-05-16 04:37] LABS: ALBUMIN 2.1 g/dL (3.4-5.0); CALCIUM 8.6 mg/dL (8.5-10.1); MAGNESIUM 1.8 mg/dL (1.8-2.4); POTASSIUM 4.2 mmol/L (3.5-5.1); TOTAL PROTEIN 6.8 g/dL (6.4-8.2)
--- NOTE | 2018-05-16 05:44 | NUR ---
PATIENT PROGRESSING TOWARDS GOALS. NO ACUTE HEMODYNAMIC CHANGES OVERNIGHT. PT BRIEFLY BECAME ANXIOUS AROUND 043O. WAS ABLE TO CALM DOWN WITH REPOSITIONING AND PT EDUCATION REINFORCEMENT. SPOKE WITH SISTER UPDATED ON CURRENT CARE. NO FURTHER CONCERNS VOICED. PT HAS NO FUNCTION IN LEFT ARM OR LEG. NIH 13. PT HELPS WITH TURNS. CURRENTLY SLEEPING, BED TO LOWEST POSITION, CALL LIGHT WITHIN REACH. WILL CONTINUE TO MONITOR.
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
[2018-05-16 07:54] LABS: ABSOLUTE LYMPHOCYTES 0.3 thou/uL (0.8-5.3); ABSOLUTE MONOCYTES 0.1 thou/uL (0.0-1.2); ABSOLUTE NEUTROPHILS 4.9 thou/uL (1.6-8.1); PLATELET ESTIMATE ADEQUATE
--- NOTE | 2018-05-16 09:22 | NUR ---
4137 ASSUMED CARE OF PATIENT. PLEASE SEE DOCUMENTED ASSESSMENT. OT HERE TO SEE PATIENT. DR TORRES TO SEE PATIENT. PLAN IS FOR MRI TODAY
--- NOTE | 2018-05-16 11:59 | NUR ---
RECEIVED CONSULT FOR POSSIBLE REHAB ADMISSION. CONSULT HAS BEEN ACKNOWLEDGED BY DRILLING PLANT OPERATOR AND DR. VILLATORO. PATIENT ADMITTED WITH CVA WITH LEFT FLACCID HEMIPARESES. PATIENT IN ICU WITH ACUTE HYPOXIC RESPIRATORY FAILURE. MAX A TO DEPENDENT WITH THERAPIES. WILL FOLLOW ALONG TO SEE HOW PATIENT PROGRESSES AND IF APPROPRIATE FOR ACUTE REHAB ONCE MEDICALLY STABLE. THANK YOU FOR THIS CONSULT.
--- NOTE | 2018-05-16 12:43 | NUR ---
1145 TO MRI WITH NURSE
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
--- NOTE | 2018-05-16 16:16 | NUR ---
1500 SAT AT EDGE OF BED WITH PHYSICAL THERAPY. SCRATCHED SCAB ON HIS RIGHT LEG WITH RIGHT HAND SO SCAB CAME OPEN AND BLED
--- NOTE | 2018-05-16 18:02 | NUR ---
PATIENT MAKING SOME PROGRESS. OFF OF HEPARIN DRIP AND ABLE TO COMPLETE MRI. SEEN BY THERAPIES AND SAT AT EDGE OF BED. HAS BEEN OFF OF BIPAP ALL DAY. APPETITE GOOD WHEN AWAKE AND ALERT. VSS. MULTIPLE VISITORS
[2018-05-17] VITALS (24 sets, daily range): BP systolic 102–122; BP diastolic 65–82
[2018-05-17 03:44] LABS: HEMATOCRIT 40.8 % (42.0-52.0); HEMOGLOBIN 13.2 gm/dL (14.0-18.0); MCH 30.6 pg (26.0-34.0); MCHC 32.3 g/dL (28.0-37.0); MCV 94.7 fL (80.0-100.0); RBC 4.31 mil/uL (4.50-6.00); RDW-CV 19.7 % (10.5-14.5); WBC 9.3 thou/uL (4.0-11.0)
[2018-05-17 04:02] LABS: ALBUMIN 2.1 g/dL (3.4-5.0); CALCIUM 8.8 mg/dL (8.5-10.1); MAGNESIUM 1.6 mg/dL (1.8-2.4); POTASSIUM 4.3 mmol/L (3.5-5.1); TOTAL BILIRUBIN 1.6 mg/dL (<0.1-1.0); TOTAL PROTEIN 6.5 g/dL (6.4-8.2)
--- NOTE | 2018-05-17 08:04 | NUR ---
PT IS ABLE TO COMMUNICATE HIS NEEDS TO STAFF WITH SOME DIFFICULTY; HE HAS BEEN DROWSY AND CONFUSED. CURRENT PAIN MEDICATION REGIMEN HAS BEEN ADEQUATE FOR CONTROLLING HIS PAIN UP TO THIS TIME. EDMOND IS PATENT. POSSIBLE US OF CAROTIDS AND/OR MRA HEAD TODAY. PT WORE BIPAP OVERNIGHT WHILE SLEEPING AND TOLERATED WELL.
[2018-05-17 13:26] LABS: CALCIUM 8.8 mg/dL (8.5-10.1); MAGNESIUM 1.7 mg/dL (1.8-2.4); POTASSIUM 4.5 mmol/L (3.5-5.1)
--- NOTE | 2018-05-17 13:44 | NUR ---
PT NOT TOLERATING EATING/DRINKING. PT IS CONSTANTLY COUGHING AND O2 SATURATION DROPS WHILE EATING/DRINKING. WILL KEEP NPO FOR NOW AND REASSESS PATIENT WAKES UP AND IS LESS LETHARGIC.
--- NOTE | 2018-05-17 18:09 | NUR ---
PT STILL TOO LETHARGIC TO EAT. HE IS AROUSABLE TO PAINFUL STIMULI AND ABLE TO ANSWER QUESTIONS WHEN AWAKE BUT HAS SPENT MOST OF HIS DAY SLEEPING. STILL KEEPING NPO PATIENT DOES NOT OPEN EYES OR ENGAGE ENOUGH TO SWALLOW SAFELY. WILL CONTINUE TO ASSESS PATIENT WAKES UP MORE. ASSESSMENT CHARTED. VSS. BATHED AND PATIENT ENGAGED AND WASHED HIS OWN FACE AND BRUSHED HIS OWN TEETH. Q2H TURNS TO MAINTAIN SKIN INTEGRITY. PAIN UNRATABLE IN HIS BACK RELIEVED PARTIALLY WITH Q2H TURNS. NO OTHER COMPLAINTS.
[2018-05-18] VITALS (15 sets, daily range): BP systolic 95–121; BP diastolic 63–88
[2018-05-18 03:19] LABS: ABSOLUTE LYMPHOCYTES 0.6 thou/uL (0.8-5.3); ABSOLUTE MONOCYTES 0.6 thou/uL (0.0-1.2); ABSOLUTE NEUTROPHILS 8.5 thou/uL (1.6-8.1); BASOPHILS 0.3 %; EOSINOPHILS 0.1 %; HEMATOCRIT 42.3 % (42.0-52.0); HEMOGLOBIN 13.4 gm/dL (14.0-18.0); LYMPHOCYTES 6.1 %; MCH 29.9 pg (26.0-34.0); MCHC 31.6 g/dL (28.0-37.0); MCV 94.7 fL (80.0-100.0); MONOCYTES 6.2 %; MPV 7.3 fl. (7.2-11.1); NUCLEATED RBCS 0 /100WBC; PLATELET COUNT* 267 thou/uL (150-400); POLYS 87.3 %; RBC 4.47 mil/uL (4.50-6.00); RDW-CV 19.6 % (10.5-14.5); WBC 9.7 thou/uL (4.0-11.0)
[2018-05-18 03:48] LABS: ALBUMIN 2.2 g/dL (3.4-5.0); CALCIUM 8.8 mg/dL (8.5-10.1); CREATININE 1.1 mg/dL (0.6-1.3); POTASSIUM 4.4 mmol/L (3.5-5.1); TOTAL BILIRUBIN 1.4 mg/dL (<0.1-1.0); TOTAL PROTEIN 6.8 g/dL (6.4-8.2)
[2018-05-18 04:03] LABS: PREALBUMIN 15.8 mg/dL (18.0-35.7)
--- NOTE | 2018-05-18 07:11 | NUR ---
Pt calm and cooperative overnight. Lethargic at beginning of shift, then more alert but drowsy for remainder of shift. VSS. On BIPAP overnight. Turned q2h. SR w/ BBB oer monitor. Will continue to monitor.
--- NOTE | 2018-05-18 10:30 | NUR ---
SPOKE WITH SISTER SIVAN IN THE WAITING ROOM. PT ADMITTED 05/14 WITH CVA. PER SIVAN, A YEAR AGO PT WAS HOMELESS. IN THE PAST YEAR HE HAS EITHER BEEN LIVING WITH HER OR STAYING WITH FRIENDS. SHE SAID STAYING WITH FRIENDS HAS BEEN A BAD IDEA, HE DOESN'T TAKE CARE OF HIMSELF. 'IF I HAVE ANY SAY IN IT, HE WILL NOT GO BACK TO LIVING WITH ANY OF HIS FRIENDS.' DISCUSSED OPTIONS FOR REHAB, PT HAS MEDICAID INSURANCE SO HAS NO SNF BENEFITS FOR THERAPIES. DISCUSSED OPTION OF INPATIENT REHAB, SHE SAID SHE WANTS HIM TO GET THE BEST POSSIBLE REHAB, 'HE IS DETERMINED TO GET BETTER AND GET OUT OF HERE.' SHE STATES THAT PT 'WILL ALWAYS HAVE A HOME AT MY HOUSE, BUT I WONDER IF HE WILL GET BACK TO THE POINT THAT HE CAN MANAGE THAT.' DISCUSSED [facility] OR ASSISTED LIVING OPTIONS, DEPENDING ON HIS PROGRESS. SHE SAID THAT PT HAD A DISABILITY HEARING RECENTLY AND THEY EXPECT TO HEAR SOON IF HE WAS APPROVED FOR DISABILITY. CASE MGT WILL CONTINUE TO FOLLOW.
--- NOTE | 2018-05-18 11:42 | NUR ---
PATIENT CARE ASSUMED AT 0700. PATIENT DROWSY, BUT ORIENTED X4. DENIED PAIN, BUT ASKING FOR PAIN MEDICATION. STATING "IF I ASK FOR IT, I NEED IT", BUT THEN FALLING ASLEEP QUICKLY AFTERWARD. MEDICATION HELD. PATIENT ON 6LHFNC MAITNAINING SAT IN HIGH 90S. BIPAP FOR SLEEP NOTED. PATIENT ABLE TO FEED HIMSELF WITH MINIMAL ASSISTANCE THIS AM. ON PUREED FOODS WITH HONEY THICKENED LIQUIDS. BLOOD PRESSURE MEDICATION HELD FOR SOFT BP AND HR IN 60S. PATIENT WENT FOR MRA OF [place] OF [place] OF [place] THIS AM. RESULTS PENDING. PATIENT TRANSFERING TO TELEMETRY ROOM 206. REPORT GIVEN TO NHUNG JOHN. AWAITING TRANSPORT.
[2018-05-18 12:00] LABS: BE 8.6 mmol/L (-2 to +3); HCO3 35.1 mmol/L (22.0-26.0); PO2 68.9 mmHg (75.0-100.0); pH 7.419 (7.340-7.450)
[2018-05-18 12:04] LABS: PCO2 55.5 mmHg (35.0-45.0)
--- NOTE | 2018-05-18 14:59 | 2DMMODE ---
[place] [address] 2 D/M-MODE ECHOCARDIOGRAM Name: FARZANA STARKEY Room: [address] IN [facility]#: [id number] Admission: 05/14/18 Attend Phys: Dimple May, Discharge: Date of : 68 Date of Service: 05/18/18 1459 Report #: [id number] THIS REPORT FOR: //name// APPROVED REPORT Study performed: 05/18/2018 13:26:48 EXAM: Comprehensive 2D, Doppler, and color-flow Echocardiogram Patient Location: In-Patient Room #: [facility] BSA: 2.44 HR: 65 bpm BP: 114/80 mmHg Other Information Study Quality: Good Indications CVA/TIA 2D Dimensions IVSd: 11.48 (7-11mm) LVOT Diam: 22.06 (18-24mm) LVDd: 61.58 mm PWd: 13.60 (7-11mm) Ascending Ao: 34.13 (22-36mm) LVDs: 55.70 (25-40mm) Aortic Root: 24.66 mm Volumes Left Atrial Volume (Systole) LA ESV Index: 26.50 mL/m2 Aortic Valve AoV Peak Jae.: 1.08 m/s AO Peak Gr.: 4.63 mmHg LVOT Max P.96 mmHg AO Mean Gr.: 3.07 mmHg LVOT Mean P.92 mmHg LVOT Max V: 0.70 m/s AO V2 VTI: 18.37 cm LVOT Mean V: 0.44 m/s BRENNAN (VTI): 2.46 cm2 LVOT V1 VTI: 11.83 cm Mitral Valve E/A Ratio: 3.57 MV Decel. Time: 174.04 ms MV E Max Jae.: 1.08 m/s MV PHT: 50.47 [place] [address] 2 D/M-MODE ECHOCARDIOGRAM Name: FARZANA STARKEY Room: [address] IN .R.#: [id number] Admission: 05/14/18 Attend Phys: Dimple May, Discharge: Date of : 68 Date of Service: 05/18/18 1459 Report #: [id number] MVA (PHT): 4.36 cm2 TDI E/Lateral E': 10.80 E/Medial E': 18.00 Medial E' Jae.: 0.06 m/s Lateral E' Jae.: 0.10 m/s Pulmonary Valve PV Peak Jae.: 0.79 m/s PV Peak Gr.: 2.51 mmHg Tricuspid Valve RAP Estimate: 5.00 mmHg TR Peak Gr.: 30.70 mmHg RVSP: 35.70 mmHg PA Pressure: 35.70 mmHg Left Ventricle Left ventricle is mildly dilated. There is global hypokinesis. There is normal left ventricular wall thickness. Left ventricular systolic function is severely decreased. LVEF is 25-30%. Mild diastolic dysfunction is present (impaired relaxation pattern). Right Ventricle Right ventricle is mildly dilated. The right ventricular systolic function is normal. Atria Left atrium is mildly dilated. Right atrium is mildly dilated. Aortic Valve The aortic valve is normal in structure. Trace aortic regurgitation. There is no aortic valvular stenosis. Mitral Valve Mitral valve leaflets are mildly thickened. Mild to moderate mitral regurgitation. No evidence of mitral valve stenosis. Tricuspid Valve The tricuspid valve is normal in structure. Mild tricuspid regurgitation. The RVSP is 40-45 mmHg. Pulmonic Valve The pulmonary valve is normal in structure. There is no pulmonic valvular regurgitation[place] [address] 2 D/M-MODE ECHOCARDIOGRAM Name: LAILAFARZANA BRITO Baldemar Room: [address] IN [facility]#: [id number] Admission: 05/14/18 Attend Phys: Dimple May, Discharge: Date of : 68 Date of Service: 05/18/18 1459 Report #: [id number] The aortic root is normal in size. IVC is normal in size and collapses >50% with inspiration. Pericardium There is no pericardial effusion. <Conclusion> Left ventricle is mildly dilated. There is normal left ventricular wall thickness. Left ventricular systolic function is severely decreased. LVEF is 25-30%. Mild diastolic dysfunction is present (impaired relaxation pattern). There is global hypokinesis. Left atrium is mildly dilated. Right atrium is mildly dilated. Right ventricle is mildly dilated. Trace aortic regurgitation. Mild to moderate mitral regurgitation. Mild tricuspid regurgitation. The RVSP is 40-45 mmHg. IVC is normal in size and collapses >50% with inspiration. <ELECTRONICALLY SIGNED> By: Markus Calvo MD, FACC 05/18/18 1459 1459 1459 Markus Calvo MD, FACC /INF
--- NOTE | 2018-05-18 19:57 | NUR ---
PT TRANSFERRED TO 206 FROM ICU AT APPROX 1230 REPORT RECVD FROM LAYLA, NHUNG. THIS RN AGREES WITH PREVIOUS MEMORY CARE DIRECTOR ALTHOUGH BREATH SOUNDS ARE DIMINISHED IN [place]NOLD UPPER LOBES WITH CRACKLES TO BILAT LOWER LOBES. PT ORIENTED TO ROOM AND CALL LIGHT, PLACED ON ROSE GRADING SUPERVISOR TRACING SINUS RHYTHM, SISTER AT BEDSIDE. PT C/O OF BACK PAIN. THIS NURSE PLACED CALL TO DR SEWER LINE REPAIRER FOR NEW ORDERS. PT CURRENTLY HAS IVP MORPHINE BUT CONT TO BE DROWSY, AWAITING CALL BACK AT THIS TIME. DEPARTMENT CHAIR NURSE UPDATED. CONT POC.
[2018-05-19] VITALS: BP 131/86
--- NOTE | 2018-05-19 03:11 | NUR ---
ASSUMED PT CARE AT 1930. C/O BACK PAIN EARLIER IN SHIFT, GAVE PRN HYDROCODONE PER JUL. LEFT SIDE UNABLE TO MOVE, DROWSY MOST OF THE SHIFT BUT ANSWERS QUESTIONS CORRECTLY. [id number], ABLE TO MAKE SOME NEEDS KNOWN. WILL CONTINUE TO MONITOR.
[2018-05-19 04:00] VITALS: BP 119/80
[2018-05-19 06:39] LABS: ABSOLUTE EOSINOPHILS 0.1 thou/uL (0.0-0.7); ABSOLUTE LYMPHOCYTES 0.9 thou/uL (0.8-5.3); ABSOLUTE MONOCYTES 0.6 thou/uL (0.0-1.2); ABSOLUTE NEUTROPHILS 5.5 thou/uL (1.6-8.1); BASOPHILS 0.4 %; EOSINOPHILS 0.8 %; HEMATOCRIT 41.1 % (42.0-52.0); HEMOGLOBIN 13.1 gm/dL (14.0-18.0); LYMPHOCYTES 12.6 %; MCH 29.9 pg (26.0-34.0); MCHC 31.9 g/dL (28.0-37.0); MCV 93.8 fL (80.0-100.0); MONOCYTES 8.8 %; MPV 7.8 fl. (7.2-11.1); NUCLEATED RBCS 0 /100WBC; PLATELET COUNT* 251 thou/uL (150-400); POLYS 77.4 %; RBC 4.38 mil/uL (4.50-6.00); RDW-CV 19.3 % (10.5-14.5); WBC 7.1 thou/uL (4.0-11.0)
[2018-05-19 08:00] VITALS: BP 141/81
[2018-05-19 11:54] VITALS: BP 139/94
--- NOTE | 2018-05-19 13:05 | NUR ---
Nutrition: Pt assessed for high BMI, 41. Admitted with drug abuse, CVA. Eatign 25-100% of meals. H/o CAD, COPD. Albumin 2.2, prealb 17.9. No nutritional interventions needed at this time. Recommend home use of MVI. Mild risk.
[2018-05-19 16:00] VITALS: BP 107/71
--- NOTE | 2018-05-19 17:39 | NUR ---
CONTINUING TO FOLLOW PATIENT ALONG WITH DR. VILLATORO. PATIENT STILL NOT MEDICALLY STABLE. HAD MARTHA NEURO AND VASCULAR FOLLOWING. PATIENT STILL WITH PARTIAL RIGHT ICA OCCLUSION. CARDIOLOGY HAS BEEN CONSULTED. PATIENT IS MAX A 2-3/DEPENDENT WITH THERAPIES. UNLIKELY TO TOLERATE 3 HOURS OF THERAPY AT THIS TIME. PATIENT ALSO WITH UNSURE DISCHARGE PLAN, HE WAS HOMELESS AND LIVING WITH HIS SISTER AND FRIENDS ON AND OFF. MAY BE ABLE TO GO TO SISTERS AT DISCHARGE DEPENDING ON LOF. WILL CONTINUE TO FOLLOW.
--- NOTE | 2018-05-19 18:07 | NUR ---
PT ALERT, ORIENTED X4 AND NIH 18. LEFT SIDE REMAINS FLACID AND DENIES SENSATION. TELE TACKING NSR AND ALL VSS ON 4L. SMALL, RED OPEN AREA NOTED ON RIGHT INNER BUTTOCK- WOUND NURSE CONSULTED. BARRIER CREAM AND Q2H TURNS OBSERVED. PRUITT TO DD WITH COPIOUS OUTPUT >4000CC- MD AWARE. PT AND FAMILY EDUCATED ON SAFETY AND PLAN OF CARE. PLEASE SEE ASSESSMENT FOR ADDITIONAL INFORMATION. WILL CONTINUE TO MONITOR
[2018-05-19 20:00] VITALS: BP 104/67
[2018-05-20] VITALS: BP 118/81
--- NOTE | 2018-05-20 03:26 | NUR ---
ASSUMED PT CARE AT 1930. ASSESSMENT COMPLETED CHARTED. PT FRIEND CAME BY EARLIER IN SHIFT AND PT OPENED HIS EYES AND TALKED FOR A WHILE. C/O BACK PAIN AND GAVE PRN PAIN MEDICATION. PT ON BEDREST AND RESTING IN BED AT THIS TIME. ABLE TO MAKE SOME NEEDS KNOWN. WILL CONTINUE TO MONITOR.
[2018-05-20 04:00] VITALS: BP 99/64
[2018-05-20 08:00] VITALS: BP 109/69
--- NOTE | 2018-05-20 10:50 | NUR ---
Pt medically stable for dc. Updated rehabilitation specialist. Spoke with Pt's sister regarding disposition, she plans to take Pt home with her at dc from rehab. Per sister, she will be able to assist Pt if needed. CM informed that through Pt's PRIMO, he should be able to get inhome caregivers, if required. Updated nurse on disposition plan. Await rehabs decision to accept.
[2018-05-20 12:30] VITALS: BP 108/74
[2018-05-20 15:07] VITALS: BP 108/74
[2018-05-20] MEDS ORDERED: ASPIR 8181 MG PO (15:19)
--- NOTE | 2018-05-20 15:19 | NUR ---
Pt to dc to acute rehab today, rehab rn working on auth. Left VM for Pt's sister regarding disposition. Faxed dc orders.
[2018-05-20] MEDS ORDERED: FOLIC ACID1 MG PO (15:20)
[2018-05-20] MEDS ORDERED: METFORMIN HCL500 MG PO (15:20)
[2018-05-20] MEDS ORDERED: ALDACTONE50 MG PO (15:25)
[2018-05-20] MEDS ORDERED: AMOXICILLIN875 MG PO (15:48)
[2018-05-20 16:00] VITALS: BP 115/80
--- NOTE | 2018-05-20 18:44 | NUR ---
PT DC TO INPT REHAB. PT C/O PAIN IN BACK THAT WAS RELIEVED BY ORDERED PAIN MED. PT UP TO CHAIR WITH SAROJ LIFT FOR MOST OF DAY. PT ABLE TO FEED SELF BUT NEEDS ENCOURAGEMENT. PT VERY DROWSY TODAY BUT WAKES EASILY AND ANSERS QUESTIONS APPROPRIATELY. L ARM FLACCID, L LEG SIGNIFICANTLY WEAK WITH INVOLUNTARY MOVEMENT IN THE FOOT. SENSATION INTACT, GREATER ON R THAN L. EDEMA 2+ BLE AND L ARM. L ARM ELEVATED WITH PILLOWS AND IMPROVEMENT TO EDEMA. SISTER AT BEDSIDE DURING DC.
== END 2018-05-20 17:40 | DRG 64 ==
LOC: M.ERS 17:57 → M.TBA-ER 05-14 00:05 → M.ICU 05-14 00:05 → M.2W 05-18 12:13
PROVIDERS: Emergency Medicine; Family Medicine; Internal Medicine; Internal Medicine Critical Care Medicine; Internal Medicine Pulmonary Disease; ADMIT Internal Medicine
PROC: 5A09357 Assistance with Respiratory Ventilation, Less than 24 Consecutive Hours, Continuous Positive Airway Pressure (ICD-10-PCS; principal; 2018-05-14)
PROC: 5A09357 Assistance with Respiratory Ventilation, Less than 24 Consecutive Hours, Continuous Positive Airway Pressure (ICD-10-PCS; 2018-05-15)
PROC: 5A09357 Assistance with Respiratory Ventilation, Less than 24 Consecutive Hours, Continuous Positive Airway Pressure (ICD-10-PCS; 2018-05-16)
PROC: 5A09357 Assistance with Respiratory Ventilation, Less than 24 Consecutive Hours, Continuous Positive Airway Pressure (ICD-10-PCS; 2018-05-17)
PROC: 5A09357 Assistance with Respiratory Ventilation, Less than 24 Consecutive Hours, Continuous Positive Airway Pressure (ICD-10-PCS; 2018-05-18)
PROC: 5A09357 Assistance with Respiratory Ventilation, Less than 24 Consecutive Hours, Continuous Positive Airway Pressure (ICD-10-PCS; 2018-05-19)
DX: I63.231 Cerebral infarction due to unspecified occlusion or stenosis of right carotid arteries (principal); J69.0 Pneumonitis due to inhalation of food and vomit; J96.01 Acute respiratory failure with hypoxia; J96.22 Acute and chronic respiratory failure with hypercapnia; J15.6 Pneumonia due to other Gram-negative bacteria; G93.40 Encephalopathy, unspecified; I50.30 Unspecified diastolic (congestive) heart failure; G81.94 Hemiplegia, unspecified affecting left nondominant side; E78.00 Pure hypercholesterolemia, unspecified; G89.29 Other chronic pain; M54.9 Dorsalgia, unspecified; I25.10 Atherosclerotic heart disease of native coronary artery without angina pectoris; I11.0 Hypertensive heart disease with heart failure; F10.10 Alcohol abuse, uncomplicated; I25.5 Ischemic cardiomyopathy; G47.33 Obstructive sleep apnea (adult) (pediatric); Z79.82 Long term (current) use of aspirin; Z79.899 Other long term (current) drug therapy; Z95.1 Presence of aortocoronary bypass graft; Z28.21 Immunization not carried out because of patient refusal

== ENCOUNTER 2018-07-03 14:16 | Inpatient (IN) | payer MEDICAID ==
[~2018-07-03] VITALS: Ht 188 cm; Wt 104.8 kg
[~2018-07-03 14:16] MED LIST changes: +ALBUTEROL2.5 MG/31 INH; +ALDACTONE50 MG PO; +AMBIEN 5 MG TABL5 M1 PO; +AMOXICILLIN875 MG PO; +BISCOLAX10 MG RECTAL; +CYMBALTA60 MG PO; +LASIX 40 MG TAB40 M2 PO; +LIPITOR80 MG PO; +METFORMIN HCL500 MG PO; +NITROGLYCERIN0.4 MG SUBLING; +NORCO 5-325 TA1 EACH PO; +PRINIVIL20 MG PO; +PROVIGIL 200 M200 M1 PO; +RESTORIL7.5 MG PO; +TOPROL XL25 MG PO; +VENTOLIN HFA 1818 GM INH; +VITAMIN B-1100 M1 PO
[2018-07-03 14:26] VITALS: BP 146/88
[2018-07-03 17:07] VITALS: BP 117/75
--- NOTE | 2018-07-03 18:02 | NUR ---
PATIENT ARRIVED TO UNIT FROM ER BY CART AT 1715. ALERT AND ORIENTED X 4. VITAL SIGNS STABLE ON ROOM AIR. AFEBRILE. LEFT SIDED PARALYSIS. IV PATENT AND SALINE LOCKED. BED LOCKED AND IN LOWEST POSITION. CALL LIGHT WITHIN REACH. NURSING WILL CONTINUE TO MONITOR.
[2018-07-03 18:06] VITALS: BP 136/86
[2018-07-03 20:51] LABS: ABSOLUTE LYMPHOCYTES 1.7 thou/uL (0.8-5.3); ABSOLUTE MONOCYTES 0.8 thou/uL (0.0-1.2); ABSOLUTE NEUTROPHILS 6.9 thou/uL (1.6-8.1); BASOPHILS 0.5 %; EOSINOPHILS 0.3 %; HEMATOCRIT 41.7 % (42.0-52.0); MCH 28.8 pg (26.0-34.0); MCHC 33.7 g/dL (28.0-37.0); MCV 85.5 fL (80.0-100.0); MONOCYTES 8.8 %; MPV 7.9 fl. (7.2-11.1); NUCLEATED RBCS 0 /100WBC; PLATELET COUNT* 255 thou/uL (150-400); POLYS 72.4 %; RBC 4.88 mil/uL (4.50-6.00); RDW-CV 18.2 % (10.5-14.5); WBC 9.5 thou/uL (4.0-11.0)
[2018-07-03 21:01] LABS: CALCIUM 8.8 mg/dL (8.5-10.1); POTASSIUM 3.6 mmol/L (3.5-5.1)
[2018-07-03 21:06] LABS: ALBUMIN 2.9 g/dL (3.4-5.0); TOTAL BILIRUBIN 0.5 mg/dL (<0.1-1.0); TOTAL PROTEIN 6.9 g/dL (6.4-8.2)
[2018-07-03 23:00] VITALS: BP 113/74
[2018-07-03 23:26] LABS: AMP/METHAMP POSITIVE (Negative); BARBITURATES Negative (Negative); BENZODIAZEPINES Negative (Negative); COCAINE Negative (Negative); METHADONE Negative (Negative); OPIATES POSITIVE (Negative); PCP Negative (Negative); THC Negative (Negative)
--- NOTE | 2018-07-04 07:52 | NUR ---
PATIENT HAS SLEPT WELL THROUGHOUT THE NIGHT. VSS ON RA. MEDICATIONS GIVE ORDERED AND CHARTED. PATIENT HAS NOT BEEN UP DURING SHIFT BUT DOES TURN HIMSELF. LEFT ANKLE WRAPPED IN SADAF WRAP AND ELEVATED ON PILLOW. IV IN RIGHT AC-SL. PATIENT INSTRUCTED TO USE CALL LIGHT WHEN NEEDING ASSISTANCE. HOURLY ROUNDS MADE. WILL CONTINUE WITH PLAN OF CARE AND NURSING TO MONITOR.
[2018-07-04 08:00] VITALS: BP 138/79
[2018-07-04 10:15] LABS: HEMATOCRIT 41.5 % (42.0-52.0); MCH 28.8 pg (26.0-34.0); MCHC 33.7 g/dL (28.0-37.0); MCV 85.5 fL (80.0-100.0); MPV 7.6 fl. (7.2-11.1); NUCLEATED RBCS 0 /100WBC; PLATELET COUNT* 243 thou/uL (150-400); RBC 4.86 mil/uL (4.50-6.00); RDW-CV 18.3 % (10.5-14.5); WBC 9.7 thou/uL (4.0-11.0)
[2018-07-04 10:19] LABS: POTASSIUM 3.9 mmol/L (3.5-5.1)
[2018-07-04 10:41] VITALS: BP 138/79
[2018-07-04 10:41] LABS: ABSOLUTE BASOPHILS 0.1 thou/uL (0.0-0.2); ABSOLUTE MONOCYTES 0.5 thou/uL (0.0-1.2); ABSOLUTE NEUTROPHILS 8.1 thou/uL (1.6-8.1); ANISOCYTOSIS 1+; ATYPICAL LYMPHS 4 %; PLATELET ESTIMATE ADEQUATE
[2018-07-04 10:43] VITALS: BP 138/79
--- NOTE | 2018-07-04 10:53 | NUR ---
SPOKE TO THE PATIENT TO DISCUSS HIS HOME SITUATION, DISCHARGE PLANNING, AND TO INFORM OF THE ROLE OF CM. PATIENT IS KNOWN TO D/C HAND CANDLE DIPPER FROM PREVIOUS ADMISSION ON REHAB UNIT. PATIENT RECENTLY LEFT A.M.A. FROM THE [facility] IN [place], AND WENT TO HIS 'EX-WIVES HOME AND FELL OFF THE TOILET'. PATIENT INFORMS THAT HE WOULD LIKE TO GO BACK TO THE INPATIENT REHAB UNIT. PATIENT INFORMS THAT HE CAN'T GO BACK TO THE 'OLD FOLKS HOME, BECAUSE ITS LIKE RETIREMENT'. PATIENT INFORMS THAT HE CAN STAY WITH HIS WHEN HE DISCHARGES FROM INPATIENT REHAB, BUT HE MUST BE ABLE TO TRANSFER HIMSELF, BECAUSE SHE IS TOO LITTLE TO HELP HIM WITH THAT. PATIENT ALSO INFORMS THAT HE BELIEVES THAT HE HAS [employer] INSURANCE, THAT IS HOW HE FILLS HIS MEDICATIONS. CM TO DISCUSS THIS WITH ADMITTING. D/C HAND CANDLE DIPPER SPOKE TO THE INPAIENT SKATE SHOP ATTENDANT TO DISCUSS ALL OF THE ABOVE INFO. SKATE SHOP ATTENDANT WILL F/U TO DISCUSS. CM WILL REMAIN AVAILABLE TO ASSIST AND FOLLOW NEEDED.
[2018-07-04 13:20] VITALS: BP 138/79
[2018-07-04] MEDS ORDERED: ATORVASTATIN CA40 MG PO (13:58)
[2018-07-04 16:00] VITALS: BP 109/67
--- NOTE | 2018-07-04 16:46 | NUR ---
PATIENT REMAINED ALERT AND ORIENTED X'S 4. VITAL SIGNS AND SPO2 STABLE. PAIN WELL CONTROLLED WITH LIDOCAINE PATCH AND PAIN MEDS. TOLERATED DIET, NO NAUSEA AND VOMITING. VOIDED WITHOUT ISSUE. COMPLETED PT/OT. COMPLETED HOURLY ROUNDING. CALL LIGHT WITHIN REACH. WILL CONTINUE TO MONITOR.
--- NOTE | 2018-07-04 17:49 | CON ---
[address] [address] CONSULTATION Name: FARZANA STARKEY Room: [address] IN M.R.#: [id number] Admission: 07/03/18 Attend Phys: Jose J Miller MD Discharge: Date of : 68 Report #: [id number] THIS REPORT FOR: //name// CC: Jose J Miller [facility] physician/PCP DICTATED BY: Noe Scott DO DATE OF SERVICE: 07/04/2018 REASON FOR CONSULTATION: Left ankle pain. HISTORY OF PRESENT ILLNESS: The patient is a 48-year-old male who is status post a CVA approximately one and half months ago, which left him with left-sided hemiplegia. The patient was at home yesterday, when he was on the toilet, toilet seat broke, and he fell onto his left side. In the process, he says he twisted the left ankle. He has had significant pain in this area. Therefore, he presented to the Emergency Department for further evaluation. The patient was initially at [facility] few weeks ago. He was happy with the rehabilitation he was receiving here; however, he was then apparently discharged to a nursing facility, which he was not pleased with. He says he had been renting a room from a lady in [place] recently, which is where his injury happened. The patient denies any other injuries. He does report he has old left-sided rib fractures which is also aggravated. He has no other complaints today. PAST MEDICAL HISTORY: Includes AFib, coronary artery disease, cardiomyopathy, COPD, CVA, drug abuse, left-sided hemiplegia, hypertension, hyponatremia, pneumonia, tobacco abuse. ALLERGIES: No known drug allergies. MEDICATIONS: Include Eliquis 5 mg b.i.d., Cymbalta 60 mg daily, Zetia 10 mg daily, Lasix 40 mg daily, Nitrostat sublingual p.r.n., folic acid 1 mg daily, [place] 5/325 one tab p.o. q.6 hours p.r.n. pain. Modafinil 200 mg p.o. daily, Restoril 7.5 mg at night for insomnia. Thiamine 100 mg p.o. daily. Metoprolol succinate 25 mg p.o. daily, Albuterol sulfate 18 mg 1 puff q.4 hours p.r.n. shortness of air. Aspirin 81 mg p.o. daily, spironolactone 50 mg p.o. daily, lisinopril 10 mg p.o. daily. Bisacodyl p.r.n. constipation. Atorvastatin calcium 80 mg p.o. daily. PAST SURGICAL HISTORY: Includes CABG 5-vessel, 10/2018. Right knee injury, which required several irrigation and debridements. SOCIAL HISTORY: The patient currently rents a room. He does not live with family. He does have a recreational drug use [place] [address] CONSULTATION Name: FARZANA STARKEY Room: [address] IN [facility]#: [id number] Admission: 07/03/18 Attend Phys: Jose J Miller MD Discharge: Date of : 68 Report #: [id number] use tobacco 1 pack per day x 35 years. He also drinks alcohol daily. REVIEW OF SYSTEMS: GENERAL: No fevers or chills. EYES: No visual change or blurred vision. HEAD: Atraumatic with no trauma, no headaches. CARDIOVASCULAR: Does have a history of AFib and cardiomyopathy. RESPIRATORY: He does have positive cough, no shortness of air. GASTROINTESTINAL: No nausea or vomiting. GENITOURINARY: No urgency or frequency. MUSCULOSKELETAL: Positive for left ankle and left chest wall pain. PSYCHIATRIC: Denies anxiety or depression currently. ENDOCRINE: Denies diabetes or thyroid disease. HEMATOLOGIC: Denies bruising or bleeding or anemia. SKIN: Denies any rashes or skin lesions. NEUROLOGIC: Does have left-sided weakness. PHYSICAL EXAMINATION: GENERAL: The patient is awake, alert and oriented, no acute distress. HEENT: Head is atraumatic, normocephalic. Eyes: Pupils are equally round and reactive to light. NECK: Supple, full range of motion. CARDIOVASCULAR: Normal peripheral perfusion and normal peripheral pulses. LUNGS: He does have occasional cough, which is dry. He is in no respiratory distress. Symmetrical chest expansion. ABDOMEN: Soft, nontender. SKIN: Warm, dry and intact. PSYCHIATRIC: Appropriate mood and affect, answers all questions appropriately. NEUROLOGIC: Positive for left-sided hemiparesis. Cranial nerves 2-12 grossly intact. MUSCULOSKELETAL: Focused on the left ankle today. There is no obvious deformity. The Ty wrap was removed. There is mild swelling on the lateral side of the ankle. He has normal sensation to light touch throughout the foot. He is unable to flex or extend the toes or ankle. He does have brisk capillary refill to the toes. He has some tenderness to palpation laterally over the lateral malleolus and ATFL. The ankle is grossly stable with stressing of the ankle joint. IMAGING: X-rays reviewed from the Emergency Department. Multiple views of the left ankle demonstrate no acute fracture. Ankle mortise appears symmetrical. IMPRESSION: Left ankle sprain. TREATMENT PLAN: I had a long discussion with the patient in regards to his diagnosis and treatment options. It did not appear he has a fracture. Therefore, he may be weightbearing as tolerated. Due to his left-sided [facility] [address] [place] [address] CONSULTATION Name: FARZANA STARKEY Room: [address] IN ..#: [id number] Admission: 07/03/18 Attend Phys: Jose J Miller MD Discharge: Date of : 68 Report #: [id number] hemiparesis, he has been relying on a wheelchair to ambulate. Due to the patient's current low functional status, he may benefit from inpatient rehabilitation stay for continued physical and occupational therapy. We also discussed possibility of wearing a Cam boot; however, this may be more of a hindrance to him due to his left-sided hemiparesis. Therefore, we will just maintain the Ty wrap for now. He will continue to ice and elevate left lower extremity, and Ortho will be available as needed. <ELECTRONICALLY SIGNED> By: Nav Araujo DO 07/04/18 1749 [id number] Araujo DO /nt
[2018-07-04 21:30] VITALS: BP 107/63
--- NOTE | 2018-07-05 08:26 | NUR ---
PATIENT HAS RESTED WELL THROUGHOUT THE NIGHT. VSS ON RA. PAIN CONTROLLED WITH ORAL PAIN MEDICATIONS AND CHARTED. PATIENT HAS NOT BEEN UP DURING SHIFT. PATIENT REMOVED SADAF WRAP FROM LEFT FOOT D/T HIS FOOT ITCHING WITH IT ON. IV IN RIGHT AC-SL. PATIENT INSTRUCTED TO USE CALL LIGHT WHEN NEEDING ASSISTANCE. HOURLY ROUNDS MADE. WILL CONTINUE WITH PLAN OF CARE AND NURSING TO MONITOR.
[2018-07-05 08:50] VITALS: BP 114/60
[2018-07-05 10:38] VITALS: BP 138/79
--- NOTE | 2018-07-05 12:00 | NUR ---
SPOKE WITH PT.ABOUT DISCHARGE PLANNING. HE CONTINUES TO WANT TO GO UP TO OUR REHAB UNIT. EXPLAINED THAT HE WAS NON COMPLIANT WITH THEIR DISCHARGE PLAN AND TOOK IT UPON HIMSELF TO RETURN HOME TO AN UNSAFE SITUATION AND FELL. THEY WILL NOT ACCEPT HIM BACK HE DOESN'T HAVE A SAFE DISCHARGE PLAN. TOLD HIM ANOTHER INPT.REHAB UNIT MIGHT TAKE HIM BUT UNSURE IF [place] MEDICA[place] WILL PAY FOR ANOTHER REHAB STAY. DISCUSSED [facility] OR [facility]. HE SAID HE DID NOT WANT TO GO TO [place]. HE WOULD TRY [facility]. CM SPOKE WITH [facility]MISS[facility] AT [facility] [place] [phone]. SHE SAID SHE DID NOT HAVE ANY BEDS UNTIL WEDNESDAY. SPOKE WITH PT.AGAIN. HE SAID HE WAS ON HOLD FOR . THEY SA[place] HAVE [place]. HE SAID THEY ALSO HAD HIS BIRTHDATE WRONG. GAVE HIM FAX NUMBER TO UNIT AND MY PHONE NUMBER IF RONALD WANTED TO CALL ME OR FAX SOMETHING STATING HE HAS THE INSURANCE.
[2018-07-05 12:28] VITALS: BP 118/59
[2018-07-05 16:04] VITALS: BP 96/49
--- NOTE | 2018-07-05 17:13 | NUR ---
PT REMAINED ALERT AND ORIENTED. PT C/O PAIN, MEDS GIVEN ORDERED. AWAITING PLACEMENT. FALL RISK PRECAUTIONS IN PLACE. HOURLY ROUNDING COMPLETED. WILL CONTINUE TO MONITOR.
[2018-07-05 20:50] VITALS: BP 98/63
--- NOTE | 2018-07-06 05:29 | NUR ---
PATIENT HAS REMAINED ALERT AND ORIENTED X 4 THROUGHOUT THE SHIFT AND RESTING AT INTERVALS ON HOURLY ROUNDS. POOR REST AFTER 0300. MEDICATED FOR PAIN X 3 OF THIS WRITING. ASSISTED WITH POSTION CHANGES. LEFT ARM LEG ELEVATED ON PILLOWS. SADAF WRAP INTACT TO LEFT ANKLE. PATIENT REFUSING ICE. PATIENT REPORTS HE HAS HAD A CHEST COLD FOR A WEEK. NOTE LOOSE COUGH. VITAL SIGNS STABLE. HAVE NOTED WHEN AWAKE; CALLS TO THE DESK VERY FREQUENT. REQUESTED HIS IV BE TAKEN OUT, HIS BACK SCRATCHED (SEVERAL TIMES), DENTAL HYGIENIST MOBILE COORDINATOR A DROPPED PILLOW, EMPTY THE URINAL THAT WAS ALREADY EMPTIED, OPEN HIS CANDY BAG, FIND HIS CELL PHONE AND PLUG IT INTO THE PRIVACY ANALYST, FIND THE HOUSE PHONE SO HE CAN CALL FOR HIS BREAKFAST (THIS LAST WAS AT 0430 WHEN THE KITCHEN IS NOT OPEN), AND CHANGE BOTH HIS SHORTS AND GOWN. PATIENT ALSO STILL STATING HE THINKS HIS DISCHARGE PLAN IS TO GO UP TO OUR REHAB UNIT. CONTINUE TO MONITOR.
[2018-07-06 09:30] VITALS: BP 111/53
[2018-07-06 15:48] VITALS: BP 116/59
--- NOTE | 2018-07-06 16:51 | NUR ---
PT.HAD REHAB EVAL ORDER. NOTIFIED GEORGE/REHAB. SHE WILL DISCUSS WITH . LONG CONVERSATION WITH PT.'S SISTER [phone]. SHE SAID IF REHAB DENIED PT.HAS NO CHOICE BUT TO GO LTC. SHE SAID HE FAILED BEING HOME ONE DAY WITH HIS 'IDIOT FRIENDS' AND EX . SHE WILL TRY TO ENCOURAGE PT.TO CHOICE ANOTHER LTC FACILITY AFTER DECISION ABOUT REHAB. PA [facility] [place]. THEY DO HAVE INSURANCE LISTED FOR PT.S [phone]. HE SAID THEY GO BY THE SUBSCRIBERS SOCIAL SEC.NUMBER, NOT PT.'S. CM WILL CALL [email or web address] IN AM AT ABOVE NUMBER TO SEE IF ANY INFORMATION CAN BE OBTAINED THAT PT.HAS FOR MEDICAL INSURANCE INSTEAD OF JUST MEDICAID.
--- NOTE | 2018-07-06 18:14 | NUR ---
PT REMAINED ALERT AND ORIENTED. PT C/O PAIN, MEDS GIVEN ORDERED. AWAITING PLACEMENT. FALL RISK PRECAUTIONS IN PLACE. HOURLY ROUNDING COMPLETED. WILL CONTINUE TO MONITOR.
[2018-07-06 20:50] VITALS: BP 127/68
[2018-07-07 08:00] VITALS: BP 139/79
--- NOTE | 2018-07-07 08:39 | NUR ---
PATIENT HAS SLEPT WELL THROUGHOUT THE NIGHT. VSS ON RA. MEDICATIONS GIVEN ORDERED AND CHARTED. FALL PRECAUTIONS IN PLACE AND HOURLY ROUNDS MADE. WILL CONTINUE WITH PLAN OF CARE AND NURSING TO MONITOR.
--- NOTE | 2018-07-07 12:04 | NUR ---
CM CALLED [facility] NUMBER THAT [facility] HAD GIVEN ON [phone]. SPOKE WITH CUSTOMER SERVICE. SHE SAID THIS WAS LINE FOR MEDICATION ONLY BUT SHOWS PT.HAS NOT GOTTEN ANY MEDS THROUGH [facility] SINCE 2015. SPOKE WITH GEORGE/REHAB LI[place]ON. SHE SAID IF PT.TRUELY HAS A SAFE DISCHARGE PLAN THEY WOULD TAKE HIM TO REHAB UNIT. WILL DISCUSS WITH PT. AND SISTER.
[2018-07-07 17:34] VITALS: BP 142/70
--- NOTE | 2018-07-07 19:32 | NUR ---
PT ALERT AND ORIENTED X 4. INDICATES PAIN AND NOT HAVING ADEQUATE PAIN CONTROL. DENIES NAUSEA. NO IV ACCESS. LEFT SIDE WEAKNESS. UP WITH MOD ASSIST X 1 WITH GAIT BELT. SADAF WRAP ON LEFT ANKLE. USES URINAL AT BEDSIDE. HOURLY ROUNDS MAINTAINED. WILL USE CALL LIGHT FOR ASSISTANCE. CALL LIGHT WITHIN REACH.
[2018-07-07 20:00] VITALS: BP 116/78
--- NOTE | 2018-07-08 05:06 | NUR ---
ASSUMED PATIENT CARE AT 1900. COMPLAINTS OF PAIN NOTED AND PAIN MEDICATION GIVEN. ABLE TO TURN SELF IN BED. MILL HOUSE SUPERVISOR AND HOURLY ROUNDING COMPLETED DOCUMENTED.
[2018-07-08 13:05] VITALS: BP 127/83
[2018-07-08 14:27] VITALS: BP 138/79
[2018-07-08] MEDS ORDERED: ALDACTONE50 MG PO (14:54)
--- NOTE | 2018-07-08 18:11 | NUR ---
PATIENT REMAINED ALERT AND ORIENTED X'S 4. VITAL SIGNS AND SPO2 STABLE. PAIN WELL CONTROLLED WITH PAIN MEDS. PT/OT COMPLETED. TOLERATED DIET, NO NAUSEA AND VOMITING. STILL WAITING ON INSURANCE AUTH. COMPLETED HOURLY ROUNDING. CALL LIGHT WITHIN REACH. WILL CONTINUE TO MONITOR.
[2018-07-08 20:04] VITALS: BP 132/65
--- NOTE | 2018-07-09 06:52 | NUR ---
Pt reports he rested well overnight. Medicated for c/o L shoulder and rib pain toward beginning of shift. This morning pt denies need for pain medicine. VSS. Will continue to monitor.
[2018-07-09 08:00] VITALS: BP 148/76
[2018-07-09 16:04] VITALS: BP 147/66
[2018-07-09 20:00] VITALS: BP 102/62
--- NOTE | 2018-07-10 04:48 | NUR ---
PT REMAINED A&Ox4 THROUGHOUT SHIFT. VITALS STABLE. PAIN CONTROLLED WITH PERCOCET. TEMAZEPAM ORDERED FOR INSOMNIA. Q2H TURNS COMPLETE. HOURLY ROUNDING COMPLETE. CALL LIGHT WITHIN REACH. FALL PRECAUTIONS IN PLACE. WILL CONTINUE TO MONITOR.
[2018-07-10 17:17] VITALS: BP 121/67
--- NOTE | 2018-07-10 17:48 | NUR ---
PT VSS THIS SHIFT ON RA. PT NEEDS TO BE ASSISTED WITH MEALS AND TURNED DUE TO L SIDED WEAKNESS POST CVA. PT TOLERATING REG DIET AND PAIN IS WELL CONTROLLED SINCE MEDICATION CHANGED TO Q4 FROM Q6. PT HAS NO IV ACCESS OR SKIN ISSUES NOTED AT THIS TIME. PT POTENTIALLY TO TRANSFER TO REHAB TOMORROW. WILL CONTINUE TO MONITOR AND ASSESS
[2018-07-10 20:00] VITALS: BP 114/69
--- NOTE | 2018-07-11 04:54 | NUR ---
PT REMAINED A&Ox4 THROUGHOUT SHIFT. VITALS STABLE. DID NOT GET OUT OF BED DURING SHIFT. PICTURE TAKEN OF DRY IRRITATED PATCH OF SKIN BEHIND EAR, NEOSPORIN APPLIED. PAIN CONTROLLED WITH PERCOCET. Q2H TURNS COMPLETE. CALL LIGHT WITHIN REACH. HOURLY ROUNDING COMPLETE. FALL PRECAUTIONS IN PLACE. WILL CONTINUE TO MONITOR.
[2018-07-11 08:30] VITALS: BP 139/83
--- NOTE | 2018-07-11 11:10 | NUR ---
FAXED REFERRAL INFORMATION TO [facility] AND SPOKE WITH HAILE IN ADMISSIONS,EARLIER THIS AM. SHE SAID SHE WOULD GIVE REFERRAL TO [facility] AND SHE WOULD BE OUT THIS AM TO SEE PT. KAVON HERE AT THIS TIME.
[2018-07-11] MEDS ORDERED: AUGMENTIN 875-1 EACH PO (12:53)
[2018-07-11] MEDS ORDERED: PROTONIX40 M2 PO (12:54)
--- NOTE | 2018-07-11 13:00 | NUR ---
KAVON FROM [facility] OUT TO SEE PT. SHE CALLED AND SAID THEY CAN ACCCEPT PT.AND MEDICAID HAS GIVEN AUTH FOR 7-10 DAYS INITIALLY. SHE WILL SET VAN UP FOR 1500. INFORMED PT. HE WAS RELUCTANT TO GO SO FAR AWAY ([place]) BECAUSE HE SAID NO ONE WOULD COME TO SEE HIM. PROS AND CONS GIVEN OF WHY HE SHOULD GO TO AN ACUTE REHAB UNIT INSTEAD OF HOME. HE SAID HE HAD WANTED TO GO TO THE REHAB PLACE IN [place]. THEY SAID LAST WEEK THEY WOULD NOT HAVE BED AVAILABILITY UNTIL THE END OF JUN. HE WAS MAKING PHONE CALLS. HIS SISTER CALLED AND SPOKE WITH CM. PT.SPOKE WITH NURSING ,CM AND SECURITY. HE FINALLY DECIDED HE WOULD GO TO [facility]. DISCHARGE SUMMARY AND MED LIST FAXED TO ADMISSIONS AT [facility]. CHART COPIED TO GO WITH HIM. NURSING TO CALL REPORT.
[2018-07-11 14:15] VITALS: BP 138/79
[2018-07-11 14:54] VITALS: BP 138/79
[2018-07-11] MEDS ORDERED: PERCOCET PO (15:10)
--- NOTE | 2018-07-11 18:26 | NUR ---
PATIENT LEFT UNIT AT 1530. ALERT AND ORIENTED X4. UP WITH ASSIST X2 WITH WALKER AND GAIT BELT. NO IV TO DC AT DISCHARGE. PAIN BEING MANAGED WITH PO PAIN MEDICATION. DENIES NAUSEA. ATTENDED THERAPIES THIS SHIFT. ALL PERSONAL ITEMS LEFT WITH PATIENT. DISCHARGE INSTRUCTIONS, PRESCRIPTIONS, AND NEW MEDICATION INFORMATION SENT WITH PATIENT TO ACUTE REHAB FACILITY. VSS ON ROOM AIR. HOURLY ROUNDS HAVE BEEN MAINTAINED THROUGHOUT SHIFT. LEFT WITH TRANSPORTER VIA CAR.
[2018-07-11 18:31] VITALS: BP 138/79
== END 2018-07-11 15:30 | DRG 563 ==
LOC: M.ERS 14:16 → M.ORTHSURG 16:21 → M.TBA-ER 16:21 → M.ORTHSURG 17:15
PROVIDERS: ADMIT Internal Medicine
PROC: 2W3DX1Z Immobilization of Left Lower Arm using Splint (ICD-10-PCS; principal; 2018-07-03)
DX: S93.402A Sprain of unspecified ligament of left ankle, initial encounter (principal); I42.9 Cardiomyopathy, unspecified; I69.354 Hemiplegia and hemiparesis following cerebral infarction affecting left non-dominant side; I11.0 Hypertensive heart disease with heart failure; E78.00 Pure hypercholesterolemia, unspecified; I50.9 Heart failure, unspecified; F32.9 Major depressive disorder, single episode, unspecified; F43.10 Post-traumatic stress disorder, unspecified; F17.210 Nicotine dependence, cigarettes, uncomplicated; I48.91 Unspecified atrial fibrillation; I25.10 Atherosclerotic heart disease of native coronary artery without angina pectoris; J44.9 Chronic obstructive pulmonary disease, unspecified; S20.212A Contusion of left front wall of thorax, initial encounter; Z91.14 Patient's other noncompliance with medication regimen; X50.1XXA Overexertion from prolonged static or awkward postures, initial encounter; Y93.89 Activity, other specified; Y92.091 Bathroom in other non-institutional residence as the place of occurrence of the external cause; Y99.8 Other external cause status; Z95.1 Presence of aortocoronary bypass graft; Z79.01 Long term (current) use of anticoagulants; Z79.82 Long term (current) use of aspirin; Z79.899 Other long term (current) drug therapy

== ENCOUNTER 2018-08-03 19:00 | Inpatient (IN) | payer MEDICAID ==
[~2018-08-03] VITALS: Ht 188 cm; Wt 115.7 kg
[2018-08-03 19:00] VITALS: BP 135/81
[~2018-08-03 19:00] MED LIST changes: +ATORVASTATIN CA40 MG PO; +AUGMENTIN 875-1 EACH PO; +PERCOCET PO; +PROTONIX40 M2 PO
[2018-08-03] MEDS ORDERED: LISINOPRIL20 MG PO (19:12)
[2018-08-03] MEDS ORDERED: PROAIR RESPICL90 MCG INH (19:15)
[2018-08-03] MEDS ORDERED: CYMBALTA30 MG PO (19:16)
[2018-08-03] MEDS ORDERED: LIDOCAINE PAIN1 EACH (19:16)
[2018-08-03] MEDS ORDERED: DOXYCYCLINE 10100 MG PO (19:17)
[2018-08-03] MEDS ORDERED: MIRALAX17 GM PO (19:17)
[2018-08-03] MEDS ORDERED: ATORVASTATIN CA40 MG PO (19:18)
[2018-08-03] MEDS ORDERED: PACERONE200 MG PO (19:18)
[2018-08-03] MEDS ORDERED: PROTONIX40 M1 PO (19:19)
[2018-08-03] MEDS ORDERED: VITAMIN B-1100 M1 PO (19:19)
[2018-08-03] MEDS ORDERED: ZETIA10 MG PO (19:19)
[2018-08-03 21:11] LABS: ABSOLUTE LYMPHOCYTES 0.7 thou/uL (0.8-5.3); ABSOLUTE MONOCYTES 0.7 thou/uL (0.0-1.2); ABSOLUTE NEUTROPHILS 5.7 thou/uL (1.6-8.1); BASOPHILS 0.6 %; EOSINOPHILS 0.1 %; HEMATOCRIT 38.8 % (42.0-52.0); HEMOGLOBIN 13.2 gm/dL (14.0-18.0); LYMPHOCYTES 10.3 %; MCH 28.5 pg (26.0-34.0); MCHC 33.9 g/dL (28.0-37.0); MONOCYTES 9.8 %; MPV 7.7 fl. (7.2-11.1); NUCLEATED RBCS 0 /100WBC; PLATELET COUNT* 313 thou/uL (150-400); POLYS 79.2 %; RBC 4.62 mil/uL (4.50-6.00); WBC 7.2 thou/uL (4.0-11.0)
[2018-08-03 21:18] LABS: APTT 26.5 Seconds (25.0-31.3); INR 1.1; PROTIME 10.8 Seconds (9.20-11.50)
[2018-08-03 21:36] LABS: ANION GAP 10 mmol/L (7-16); BUN 19 mg/dL (7-18); CALCIUM 9.2 mg/dL (8.5-10.1); CHLORIDE 93 mmol/L (98-107); CO2 31 mmol/L (21-32); GLUCOSE 111 mg/dL (70-99); POTASSIUM 3.7 mmol/L (3.5-5.1); SODIUM 134 mmol/L (136-145); TROPONIN-I LEVEL <0.06 ng/mL (<0.06)
[2018-08-03 21:48] LABS: ALBUMIN 3.3 g/dL (3.4-5.0); ALKALINE PHOSPHATASE 91 U/L (46-116); NT-PRO BRAIN NAT PEPTIDE 602 pg/mL (<300); SGOT 53 U/L (15-37); SGPT 48 U/L (30-65); TOTAL BILIRUBIN 1.8 mg/dL (<0.1-1.0); TOTAL PROTEIN 7.5 g/dL (6.4-8.2)
[2018-08-03 22:37] VITALS: BP 111/63
[2018-08-04 08:03] VITALS: BP 104/63
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
[2018-08-04] MEDS ORDERED: PACERONE 200 M200 M1 PO (08:28)
[2018-08-04 12:00] VITALS: BP 107/62
--- NOTE | 2018-08-04 13:43 | EKG ---
[place] [address] ELECTROCARDIOGRAM REPORT Name: FARZANA STARKEY Room: [address] ADM IN M.R.#: [id number] Admission: 08/03/18 Attend Phys: Rose Coles MD Discharge: Date of : 68 Report #: [id number] THIS REPORT FOR: //name// [facility] ED Test Date: 2018-08-03 Test Time: 20:47:48 Pat Name: FARZANA STARKEY Department: Room: [facility] Gender: M Zone Manager: Betty STACK : [id number] Requested By: Jennifer Dixon Order Number: [id number] MD: Markus Calvo Measurements Intervals [place] Rate: 83 P: AR: QRS: 57 QRSD: 162 T: 54 QT: 454 QTc: 534 Interpretive Statements Sinus rhythm Right bundle branch block Baseline wander in lead(s) V2 No previous ECG available for comparison Electronically Signed On 08-04-2018 13:43:09 CDT by Markus Calvo [email or web address] <ELECTRONICALLY SIGNED> By: Markus Calvo MD, [facility] 08/04/18 1343 46 46 Markus Calvo MD, FAC /EPI
--- NOTE | 2018-08-04 15:13 | NUR ---
Pt is A&O. Resides at home with his 2 brothers, one brother assists as needed, the other brother, per Pt, does not do anything. Pt states that he completes his own sponge baths and toileting. Pt has a walker and wc at home, primarily uses the wc, d/t his paralysis and broken foot. Pt was recently hospitalized her and dc to [facility], Pt stated that he was dc from there about 1.5 weeks ago. CM discussed LTC, Pt stated "there ain't no way in hell I'm going to a half-way." Pt stated that he went to tour [facility], but did not want to stay. Pt states that he plans to get his own place, once his disability goes through at the end of August. Pt's [place] with his brothers. Following.
[2018-08-04 16:00] VITALS: BP 89/45
--- NOTE | 2018-08-04 18:27 | NUR ---
PT TRANSFERRED TO [facility] AT 1810. PT HAS CONTINUED PAIN BUT DID NOT WANT TYLENOL. HIS SISTER BROUGHT HIS MEDICATION LIST IN AND IT WAS GIVEN TO NHUNG VEGA ON [facility]. PT HAS MULTI DRUG USE IN HX AND ETOH USE, NO CIWA ORDERED AT THIS TIME. PT HAS PAIN WITH COUGH DUE TO FALL THAT CAUSED INJURY TO RIBS. PIX TAKEN OF BLE DUE TO SCRATCHES AND CELLULITIS. WILL CONTINUE TO MONITOR AND ASSESS
--- NOTE | 2018-08-04 19:49 | NUR ---
ASSUMED CARE OF PATIENT AT 1800. ALERT AND ORIENTED X3, FORGETFUL AT TIMES. UP WITH ASSIST X2 WITH WALKER AND GAIT BELT. IV IS PATENT AND SALINE LOCKED. REQUESTING PAIN MEDICATION AT THIS TIME. DENIES NAUSA. TOLERATING DIET. VSS ON ROOM AIR. PATIENT HAS BEEN ORIENTED TO ROOM. CALL LIGHT IS WITHIN REACH. NURSING WILL CONTINUE TO MONITOR.
[2018-08-04 20:45] VITALS: BP 101/63
[2018-08-05 04:16] LABS: ABSOLUTE EOSINOPHILS 0.1 thou/uL (0.0-0.7); ABSOLUTE LYMPHOCYTES 1.2 thou/uL (0.8-5.3); ABSOLUTE MONOCYTES 0.4 thou/uL (0.0-1.2); ABSOLUTE NEUTROPHILS 3.5 thou/uL (1.6-8.1); BASOPHILS 0.7 %; EOSINOPHILS 1.1 %; HEMATOCRIT 35.1 % (42.0-52.0); HEMOGLOBIN 11.6 gm/dL (14.0-18.0); LYMPHOCYTES 23.1 %; MCH 28.5 pg (26.0-34.0); MCHC 32.9 g/dL (28.0-37.0); MCV 86.4 fL (80.0-100.0); MONOCYTES 7.8 %; MPV 7.7 fl. (7.2-11.1); NUCLEATED RBCS 0 /100WBC; PLATELET COUNT* 260 thou/uL (150-400); POLYS 67.3 %; RBC 4.06 mil/uL (4.50-6.00); RDW-CV 18.7 % (10.5-14.5); WBC 5.2 thou/uL (4.0-11.0)
[2018-08-05 05:53] LABS: ALBUMIN 2.5 g/dL (3.4-5.0); CALCIUM 8.4 mg/dL (8.5-10.1); CREATININE 0.9 mg/dL (0.6-1.3); POTASSIUM 3.8 mmol/L (3.5-5.1); TOTAL BILIRUBIN 0.6 mg/dL (<0.1-1.0); TOTAL PROTEIN 5.7 g/dL (6.4-8.2)
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
[2018-08-05 09:05] VITALS: BP 117/72
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
[2018-08-05 17:03] VITALS: BP 118/67
--- NOTE | 2018-08-05 19:32 | NUR ---
A&O X 3~4. VITALS, SpO2 STABLE. PAIN MANAGED BY MEDS. CALL LIGHT WITHIN REACH. FALL RISK PRECAUTIONS IN PLACE. BED ALARMS ON. HOURLY ROUNDING COMPLETED. WILL CONTINUE TO MONITOR.
[2018-08-05 20:00] VITALS: BP 112/66
[2018-08-06 04:07] LABS: URINE BILIRUBIN NEGATIVE (Negative); URINE BLOOD NEGATIVE (Negative); URINE CLARITY CLEAR; URINE COLOR YELLOW; URINE GLUCOSE-RANDOM NEGATIVE (Negative); URINE KETONES NEGATIVE (Negative); URINE LEUKOCYTES NEGATIVE (Negative); URINE NITRITE NEGATIVE (Negative); URINE PROTEIN NEGATIVE (Negative); URINE SPECIFIC GRAVITY >= 1.030 (1.005-1.030)
[2018-08-06 04:31] LABS: AMP/METHAMP POSITIVE (Negative); BARBITURATES Negative (Negative); BENZODIAZEPINES Negative (Negative); COCAINE Negative (Negative); METHADONE Negative (Negative); OPIATES POSITIVE (Negative); PCP Negative (Negative); THC Negative (Negative)
--- NOTE | 2018-08-06 06:26 | NUR ---
PT REMAINED A&Ox4 THROUGHOUT SHIFT. VITALS STABLE. PAIN CONTROLLED WITH NORCO AND FLEXERIL. SLEPT WELL DURING SHIFT. FALL PRECAUTIONS IN PLACE. Q2H TURNS COMPLETE. CALL LIGHT WITHIN REACH. HOURLY ROUNDING COMPLETE. WILL CONTINUE TO MONITOR.
[2018-08-06 08:00] VITALS: BP 134/91
--- NOTE | 2018-08-06 15:37 | NUR ---
PT. TO DISCHARGE TODAY TO HOME. ORDER FOR PALLIATIVE CARE CONSULT. CM CALLED [facility] [phone]. RETURN CALL FROM [facility]. HE SAID PALLIATIVE CARE DOES NOT WORK ON THE WEEKENDS. THEY WOULD BE GLAD TO INITIATE THE CONSULT ON WEDNESDAY AND CALL PT.AT HOME. FAXED FACE SHEET TO [facility] [phone]. ESTRELLITA CALDWELL RN.
[2018-08-06 15:44] VITALS: BP 134/91
[2018-08-06 17:33] VITALS: BP 123/76
[2018-08-06] MEDS ORDERED: MINOCYCLINE HC100 MG PO (19:45)
[2018-08-06 20:00] VITALS: BP 146/93
== END 2018-08-06 20:26 | disposition home or self-care (01) | DRG 603 ==
LOC: M.ERS 19:00 → M.2W 21:55 → M.TBA-ER 21:55 → M.ORTHSURG 21:55 → M.2W 21:55 → M.ERS 22:38 → M.2W 22:51 → M.ORTHSURG 08-04 18:14
PROVIDERS: Internal Medicine; Nurse Practitioner Family; ADMIT Family Medicine
DX: L03.116 Cellulitis of left lower limb (principal); I42.9 Cardiomyopathy, unspecified; F10.20 Alcohol dependence, uncomplicated; F17.200 Nicotine dependence, unspecified, uncomplicated; S40.012A Contusion of left shoulder, initial encounter; S00.93XA Contusion of unspecified part of head, initial encounter; S50.02XA Contusion of left elbow, initial encounter; S63.502A Unspecified sprain of left wrist, initial encounter; I50.9 Heart failure, unspecified; I11.0 Hypertensive heart disease with heart failure; Z51.5 Encounter for palliative care; K21.9 Gastro-esophageal reflux disease without esophagitis; W19.XXXA Unspecified fall, initial encounter; Y93.89 Activity, other specified; I69.354 Hemiplegia and hemiparesis following cerebral infarction affecting left non-dominant side; Y99.8 Other external cause status; Z91.19 Patient's noncompliance with other medical treatment and regimen; Z79.51 Long term (current) use of inhaled steroids; Y92.009 Unspecified place in unspecified non-institutional (private) residence as the place of occurrence of the external cause; Z79.899 Other long term (current) drug therapy; S16.1XXD Strain of muscle, fascia and tendon at neck level, subsequent encounter

== ENCOUNTER 2018-12-21 20:29 | Inpatient (IN) | payer MEDICAID ==
[~2018-12-21] VITALS: Ht 188 cm; Wt 108.4 kg
[~2018-12-21 20:29] MED LIST changes: +CYMBALTA30 MG PO; +DOXYCYCLINE 10100 MG PO; +LIDOCAINE PAIN1 EACH TOP; +LISINOPRIL20 MG PO; +MINOCYCLINE HC100 MG PO; +MIRALAX17 GM PO; +PACERONE200 MG PO; +PROTONIX40 M1 PO
[2018-12-21 20:44] VITALS: BP 159/88
[2018-12-21 21:00] LABS: ABSOLUTE BASOPHILS 0.1 thou/uL (0.0-0.2); ABSOLUTE EOSINOPHILS 0.1 thou/uL (0.0-0.7); ABSOLUTE LYMPHOCYTES 2.5 thou/uL (0.8-5.3); ABSOLUTE MONOCYTES 0.7 thou/uL (0.0-1.2); ABSOLUTE NEUTROPHILS 4.6 thou/uL (1.6-8.1); BASOPHILS 0.8 %; EOSINOPHILS 0.9 %; HEMATOCRIT 55.3 % (42.0-52.0); HEMOGLOBIN 18.4 gm/dL (14.0-18.0); LYMPHOCYTES 31.7 %; MCH 30.5 pg (26.0-34.0); MCHC 33.3 g/dL (28.0-37.0); MCV 91.5 fL (80.0-100.0); MONOCYTES 8.3 %; MPV 7.1 fl. (7.2-11.1); NUCLEATED RBCS 0 /100WBC; PLATELET COUNT* 256 thou/uL (150-400); POLYS 58.3 %; RBC 6.05 mil/uL (4.50-6.00); RDW-CV 16.8 % (10.5-14.5); WBC 7.9 thou/uL (4.0-11.0)
[2018-12-21 21:08] LABS: CREATININE 1.2 mg/dL (0.6-1.3); POTASSIUM 3.3 mmol/L (3.5-5.1)
[2018-12-21 21:10] LABS: APTT 26.4 Seconds (25.0-31.3); INR 1.1; PROTIME 11.1 Seconds (9.20-11.50)
[2018-12-21 21:17] LABS: ALCOHOL 226 mg/dL (<10); SALICYLATE 2.8 mg/dL (2.8-20.0)
[2018-12-21 21:18] LABS: ACETAMINOPHEN < 2 ug/mL (10-30); ALBUMIN 3.4 g/dL (3.4-5.0); MAGNESIUM 1.9 mg/dL (1.8-2.4); TOTAL PROTEIN 8.4 g/dL (6.4-8.2); TROPONIN-I LEVEL 0.1 ng/mL (<0.06)
[2018-12-21 21:31] LABS: AMP/METHAMP Negative (Negative); BARBITURATES Negative (Negative); BENZODIAZEPINES POSITIVE (Negative); COCAINE Negative (Negative); METHADONE Negative (Negative); OPIATES Negative (Negative); PCP Negative (Negative); THC Negative (Negative)
[2018-12-21 21:41] LABS: BE -9.2 mmol/L (-2 to +3)
[2018-12-21 21:43] LABS: PCO2 57.9 mmHg (35.0-45.0); PO2 243.4 mmHg (75.0-100.0); pH 7.165 (7.340-7.450)
[2018-12-21 23:55] VITALS: BP 130/97
[2018-12-22] VITALS (24 sets, daily range): BP systolic 98–144; BP diastolic 64–89
--- NOTE | 2018-12-22 02:03 | NUR ---
CODE ICE STARTED AT THIS TIME PER [facility] MACHINE.
--- NOTE | 2018-12-22 02:38 | NUR ---
CODE ICE CANCELLED PER CARDIOLOGY.
--- NOTE | 2018-12-22 06:12 | NUR ---
PATIENT TO ICU ROOM 1 AT 0000 ACCOMPANIED BY RN, ON A VENTILATOR WITH LEVOPHED AND VERSED RUNNING. LEVOPHED TITRATED OFF, PATIENT ON 10 MCG/KG/MIN PROPOFOL AND MAINTAINING BP. 1/4 OF POTASSIUM BAG STARTED PER ELECTROLYTE REPLACEMENT PROTOCOL. REMAINS ON RESTRAINTS, Q2 TURNS FOR SKIN INTEGRITY.
[2018-12-22 08:09] LABS: BE -2.9 mmol/L (-2 to +3); PCO2 31.8 mmHg (35.0-45.0); PO2 60.3 mmHg (75.0-100.0); pH 7.422 (7.340-7.450)
--- NOTE | 2018-12-22 18:12 | NUR ---
PT CARE ASSUMED AFTER REPORT. SR/ST/AFIB ON MONITOR. SEDATED ON VENTILATOR. AROUSABLE WITH STIMULATION. PRUITT TO DD. NOT PROGRESSING TOWARDS GOALS.
[2018-12-23] VITALS (46 sets, daily range): BP systolic 90–132; BP diastolic 57–85
[2018-12-23 03:44] LABS: HEMATOCRIT 44.8 % (42.0-52.0); MCH 29.9 pg (26.0-34.0); MCHC 33.3 g/dL (28.0-37.0); MCV 89.6 fL (80.0-100.0); MPV 7.6 fl. (7.2-11.1); RDW-CV 16.6 % (10.5-14.5); WBC 13.6 thou/uL (4.0-11.0)
[2018-12-23 03:47] LABS: HEMOGLOBIN 14.9 gm/dL (14.0-18.0)
[2018-12-23 03:55] LABS: ALBUMIN 2.3 g/dL (3.4-5.0); CALCIUM 8.4 mg/dL (8.5-10.1); MAGNESIUM 1.2 mg/dL (1.8-2.4); TOTAL BILIRUBIN 1.5 mg/dL (<0.1-1.0); TOTAL PROTEIN 6.2 g/dL (6.4-8.2)
[2018-12-23 04:04] LABS: POTASSIUM 4.4 mmol/L (3.5-5.1)
--- NOTE | 2018-12-23 06:48 | NUR ---
VITALS STABLE, LOW-GRADE FEVER RESOLVED BY FAN. 650 UOP, PINK AND CLOUDY. 2/4 BAG OF MAG RUNNING PER IV PER ELECTROLYTE REPLACEMENT. RECEIVED COMPELTE BATH. Q2 TURNS FOR SKIN INTEGRITY. OTHERWISE UNEVENTFUL NIGHT.
[2018-12-23 10:02] LABS: BE 0.6 mmol/L (-2 to +3); PCO2 41.9 mmHg (35.0-45.0); pH 7.403 (7.340-7.450)
[2018-12-23 13:01] LABS: URINE BLOOD NEGATIVE (Negative); URINE COLOR YELLOW; URINE GLUCOSE-RANDOM NEGATIVE (Negative); URINE KETONES NEGATIVE (Negative); URINE LEUKOCYTES-REFLEX NEGATIVE (Negative); URINE PROTEIN NEGATIVE (Negative); URINE SPECIFIC GRAVITY >= 1.030 (1.005-1.030)
[2018-12-23 13:02] LABS: URINE BILIRUBIN 2+ (Negative); URINE CLARITY HAZY; URINE NITRITE-REFLEX POSITIVE (Negative)
[2018-12-23 13:03] LABS: ICTOTEST (BILI CONFIRMATORY) Negative (Negative)
[2018-12-23 13:10] LABS: SQUAMOUS 0-3 Few /LPF (0-3); URINE RBC 3-10 Few /HPF (0-2); URINE WBC-REFLEX 6-15 Few /HPF (0-5)
[2018-12-23 13:11] LABS: BACTERIA-REFLEX None Seen /HPF (None Seen); CRYSTALS None Seen /LPF (None Seen); FINE GRANULAR CASTS 0-3 Few /LPF (None Seen); HYALINE CASTS 0-3 Few /LPF (None Seen); MUCUS 0-3 Light strn/LPF (None Seen)
--- NOTE | 2018-12-23 14:15 | NUR ---
cm received a referral to assess pt for possible SI d/t overdose. pt intubated. no family present at this time. cm to f/u @ later date.
--- NOTE | 2018-12-23 18:49 | NUR ---
PT HAD STOOL THIS SHIFT. PT TOLERATED SEDATION VACATION. PER PULMONARY PT TO HAVE WEANING TRIAL IN AM. URINE SAMPLE SENT. VSS. PT REPOSITIONED. SISTER AT BEDSIDE. THIS EVENING.
[2018-12-24] VITALS (15 sets, daily range): BP systolic 97–116; BP diastolic 61–82
[2018-12-24 04:23] LABS: HEMATOCRIT 43.2 % (42.0-52.0); MCH 29.2 pg (26.0-34.0); MCHC 32.5 g/dL (28.0-37.0); MCV 89.7 fL (80.0-100.0); MPV 8.1 fl. (7.2-11.1); RBC 4.81 mil/uL (4.50-6.00); WBC 11.4 thou/uL (4.0-11.0)
[2018-12-24 04:55] LABS: CALCIUM 8.4 mg/dL (8.5-10.1); CREATININE 0.9 mg/dL (0.6-1.3); POTASSIUM 4.3 mmol/L (3.5-5.1)
--- NOTE | 2018-12-24 06:02 | NUR ---
VITALS STABLE, AFEBRILE. TOLERATED WEANING TRIAL FOR ABOUT 30 MINS THIS AM, PROPOFOL HELD. RUNNING AT 20MCG/KG/MIN AT THIS TIME. PATIENT WAS ABLE TO NOD HEAD YES TO QUESTIONS WHILE ON TRIAL, DID NOT FIGHT RESTRAINTS OR VENT. OTHERWISE UNEVENTFUL NIGHT. Q2 TURNS FOR SKIN INTEGRITY. RECEIVED COMPLETE BATH.
[2018-12-24 06:10] LABS: BE 0.2 mmol/L (-2 to +3); PCO2 33.9 mmHg (35.0-45.0); pH 7.457 (7.340-7.450)
[2018-12-24 06:12] LABS: PO2 132.9 mmHg (75.0-100.0)
--- NOTE | 2018-12-24 13:53 | NUR ---
Spoke with Pt's nurse, nurse informed that Pt's sister would like for Pt to be considered for acute rehab at dc. Following.
--- NOTE | 2018-12-24 18:15 | NUR ---
PT CARE ASSUMED AFTER REPORT. ASSESSMENTS COMPLETE. PT RMAINS ON VENTILATOR. BL SOFT WRIST RESTRAINTS IN PLACE PT FREQUENTLY ATTEMTS TO GRAB ET TUBE. JEVITY 1.5 TUBE FEED STARTED AT 10ML/H. PRUITT TO DD. PROPOFOL TITRATED OFF. PRESIDEX INFUSING. PT INCONT OF LARGE AMOUNT OF STOOL THIS AM. CONTACT PRECAUTIONS IN PLACE. NO S/S OF PAIN. SLOW TO PROGRESS TOWARDS GOALS.
[2018-12-25] VITALS (12 sets, daily range): BP systolic 106–150; BP diastolic 83–109
[2018-12-25 03:38] LABS: HEMATOCRIT 45.9 % (42.0-52.0); MCH 29.8 pg (26.0-34.0); MCHC 32.6 g/dL (28.0-37.0); MCV 91.4 fL (80.0-100.0); MPV 8.5 fl. (7.2-11.1); NUCLEATED RBCS 0 /100WBC; PLATELET COUNT* 122 thou/uL (150-400); RBC 5.03 mil/uL (4.50-6.00); RDW-CV 17.2 % (10.5-14.5)
[2018-12-25 03:51] LABS: CALCIUM 8.3 mg/dL (8.5-10.1); CREATININE 1.4 mg/dL (0.6-1.3); MAGNESIUM 2.1 mg/dL (1.8-2.4); POTASSIUM 4.8 mmol/L (3.5-5.1)
--- NOTE | 2018-12-25 05:47 | NUR ---
VITALS STABLE, LOW GRADE FEVER CORRECTED WITH FAN. PATIENT ON 1MCG/KG/HR PRECEDEX. NOT ABLE TO GIVE PATIENT A COMPLETE BATH DUE TO AGITATION, ABLE TO NOD HEAD, TRIES TO GET TO HIS ET TUBE USING ONLY HIS RIGHT HAND. PARTIAL BATH GIVEN, LINENS CHANGED. UOP 300 CC. NO BM. FIO2 TITRATED DOWN TO 35% THIS AM. TUBE FEED ON HOLD SINCE 0500 FOR WEANING TRIAL THIS AM. Q2 TURNS FOR SKIN INTEGRITY.
[2018-12-25 06:12] LABS: ABSOLUTE LYMPHOCYTES 0.3 thou/uL (0.8-5.3); ABSOLUTE NEUTROPHILS 8.7 thou/uL (1.6-8.1); PLATELET ESTIMATE ADEQUATE
--- NOTE | 2018-12-25 09:16 | NUR ---
PT EXTUBATED HIMSELF. BEGAN TALKING AND ARGUING WITH STAFF ABOUT BEING REINTUBATED. CPAP PLACED BY RT. O2 SAT 100%. DR MOLINA AND DR LY NOTIFIED.
[2018-12-25 09:51] LABS: BE -3.2 mmol/L (-2 to +3); PCO2 27.6 mmHg (35.0-45.0); pH 7.454 (7.340-7.450)
[2018-12-25 09:52] LABS: PO2 149.6 mmHg (75.0-100.0)
[2018-12-25 15:17] LABS: BE -3.3 mmol/L (-2 to +3); PCO2 29.9 mmHg (35.0-45.0); PO2 107.9 mmHg (75.0-100.0); pH 7.431 (7.340-7.450)
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
[2018-12-26] VITALS (20 sets, daily range): BP systolic 14–152; BP diastolic 76–114
[2018-12-26 04:38] LABS: WBC 6.3 thou/uL (4.0-11.0)
[2018-12-26 04:40] LABS: ABSOLUTE LYMPHOCYTES 0.4 thou/uL (0.8-5.3); ABSOLUTE MONOCYTES 0.5 thou/uL (0.0-1.2); ABSOLUTE NEUTROPHILS 5.3 thou/uL (1.6-8.1); BASOPHILS 0.1 %; EOSINOPHILS 0.1 %; HEMATOCRIT 46.5 % (42.0-52.0); HEMOGLOBIN 15.4 gm/dL (14.0-18.0); LYMPHOCYTES 7.1 %; MCHC 33.1 g/dL (28.0-37.0); MCV 90.5 fL (80.0-100.0); MONOCYTES 8.4 %; NUCLEATED RBCS 1 /100WBC; PLATELET COUNT* 64 thou/uL (150-400); POLYS 84.3 %; RBC 5.14 mil/uL (4.50-6.00); RDW-CV 16.9 % (10.5-14.5)
[2018-12-26 05:10] LABS: ALBUMIN 2.5 g/dL (3.4-5.0); CALCIUM 8.4 mg/dL (8.5-10.1); CREATININE 1.4 mg/dL (0.6-1.3); POTASSIUM 4.5 mmol/L (3.5-5.1); TOTAL BILIRUBIN 2.9 mg/dL (<0.1-1.0); TOTAL PROTEIN 6.1 g/dL (6.4-8.2)
--- NOTE | 2018-12-26 05:51 | NUR ---
VITALS STABLE, TMAX 100.5F THIS AM, WAS AFEBRILE THROUGH THE NIGHT. PATIENT IRRITABLE, SAYING INCOMPREHENSIBLE AND INAPPROPRIATE WORDS WHEN ALERT. ON MAX PRECEDEX, REMAINS ON RESTRAINTS AND CPAP. NO BM, UOP 550CC. ABLE TO DRINK 1600CC, DRY MOUTH. Q2 TURNS FOR SKIN INTEGRITY. 1:1 OBSERVATION VIA SITTER MAINTAINED.
[2018-12-26 08:43] LABS: BE -3.7 mmol/L (-2 to +3); PCO2 29.6 mmHg (35.0-45.0); PO2 82.2 mmHg (75.0-100.0); pH 7.427 (7.340-7.450)
--- NOTE | 2018-12-26 08:57 | NUR ---
PT SITTING UPRIGHT IN BED. PT ABLE TO SWALLOW LIQUIDS AND FOLLOW COMMANDS WITHOUT SIGNS OF ASPIRATION SUCH COUGHIN
--- NOTE | 2018-12-26 10:31 | NUR ---
Nutrition: Pt admitted with resp arrest. SI, IV drug use, old CVA and Lt side flacid. Anoxic brain injury, NSTEMI, DTs, CIWA is high. Pt extubated self. Able to drink po, diet advanced to Soft, but ST will see pt too. Wt: 241#. No need for TF now. Will follow per protocol. Mild to low risk.
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
[2018-12-26 12:52] LABS: ABSOLUTE LYMPHOCYTES 0.5 thou/uL (0.8-5.3); ABSOLUTE MONOCYTES 0.5 thou/uL (0.0-1.2); ABSOLUTE NEUTROPHILS 5.2 thou/uL (1.6-8.1); BASOPHILS 0.3 %; HEMATOCRIT 46.2 % (42.0-52.0); HEMOGLOBIN 15.3 gm/dL (14.0-18.0); LYMPHOCYTES 8.5 %; MCH 29.9 pg (26.0-34.0); MCHC 33.1 g/dL (28.0-37.0); MCV 90.4 fL (80.0-100.0); MPV 9.1 fl. (7.2-11.1); NUCLEATED RBCS 1 /100WBC; PLATELET COUNT* 64 thou/uL (150-400); POLYS 83.2 %; RBC 5.11 mil/uL (4.50-6.00); RDW-CV 16.7 % (10.5-14.5); WBC 6.3 thou/uL (4.0-11.0)
--- NOTE | 2018-12-26 13:59 | NUR ---
PRECEDEX OFF. PT MORE AWAKE.SITTING UPRIGHT IN BED. PT DOES APPEAR TO BE HALLUCINATING SPEAKING TO HIS "FRIENDS IN THE CORNER"
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
[2018-12-27] VITALS (19 sets, daily range): BP systolic 111–148; BP diastolic 35–91
[2018-12-27 04:07] LABS: HEMATOCRIT 43.4 % (42.0-52.0); HEMOGLOBIN 14.6 gm/dL (14.0-18.0); MCH 30.1 pg (26.0-34.0); MCHC 33.6 g/dL (28.0-37.0); MCV 89.4 fL (80.0-100.0); RBC 4.86 mil/uL (4.50-6.00); WBC 7.3 thou/uL (4.0-11.0)
[2018-12-27 04:26] LABS: CALCIUM 7.9 mg/dL (8.5-10.1); MAGNESIUM 1.9 mg/dL (1.8-2.4); PHOSPHORUS* 3.5 mg/dL (2.5-4.9); POTASSIUM 3.9 mmol/L (3.5-5.1)
--- NOTE | 2018-12-27 07:28 | NUR ---
ASSESSMENT CHARTED. VSS. PATIENT HR DROPPED TO UPPER 40S DURING SHIFT, PATIENT ASYMPTOMATIC. ADMINISTERED 3 DOSES ATIVAN DURING SHIFT FOR ELEVATED CIWA. PATIENT SLEEPING ON BIPAP DURING NIGHT. PATIENT INCONTINENT OF BLADDER. PATIENT REFUSED TO HAVE PRUITT PLACED BACK IN. CURRENTLY HAS INCONTIENCE BRIEFS ON. PATIENT STILL HALLUCINATING AND SPEAKING TO PEOPLE THAT ARE NOT THERE.
--- NOTE | 2018-12-27 15:52 | NUR ---
I have reviewed the documentation by YOSI MARTINI from 12/26/18 to 12/27/18 and I concur with it. RUBI STINSON
[2018-12-28] VITALS (11 sets, daily range): BP systolic 127–153; BP diastolic 70–97
[2018-12-28 05:54] LABS: CALCIUM 7.4 mg/dL (8.5-10.1); CREATININE 0.8 mg/dL (0.6-1.3); MAGNESIUM 1.9 mg/dL (1.8-2.4); PHOSPHORUS* 2.7 mg/dL (2.5-4.9); POTASSIUM 3.5 mmol/L (3.5-5.1); TOTAL BILIRUBIN 2.4 mg/dL (<0.1-1.0)
[2018-12-28 05:55] LABS: ALBUMIN 2.1 g/dL (3.4-5.0); TOTAL PROTEIN 5.3 g/dL (6.4-8.2)
--- NOTE | 2018-12-28 06:53 | NUR ---
ASSESSMENT CHARTED. PATIENT MORE ALERT AND ORIENTED. SITTER AT BEDSIDE. PATIENT PROGRESSING TOWARD GOALS. REFUSED TO WEAR THE CPAP AFTER 0100.
--- NOTE | 2018-12-28 11:24 | NUR ---
INT ROUNDS: PT HAS ORDERS FOR TELE BED TODAY, DR MALACHI SCHULTE, ON CHART. REC: INPT PSYCH. MET WITH PT, DISCUSSED INPT PSYCH, PT PUT HIS HEAD DOWN AND TALKED SOFTLY AFTER THAT. STATED HE HAD BEEN TO INPT PSYCH IN PAST IN [place] FOR 'A YEAR.' PT STILL WITH ELEVATED CIWA SCORES TALKED WITH PT ABOUT PRIOR LIVING SITUATION, HE STATED HE WAS JUST LIVING WITH A 'FRIEND' AND HIS BELONGINGS INCLUDING W/C ARE THERE. PT IS W/C BOUND, WILL ATTEMPT TO LOCATE W/C. CALL PLACED TO PT'S DAD, HE ASKED THAT CM CALL BACK. WILL FOLLOW
--- NOTE | 2018-12-28 15:17 | NUR ---
PT CARE ASSUMED AFTER REPORT. ASSESSMENTS COMPLETE. SR ON MONITOR. CIWA 17. PT ALERT AND CONFUSED AT TIMES. INCONT OF URINE AND STOOL. PT CLEANED AND BED CHANGES PRN. SITTER AT BEDSIDE FOR PT SAFETY. PT DENIES SI. DENIES PAIN. PT TO TRANSFER TO ROOM 229. REPORT GIVEN TO NHUNG VINCENT.
--- NOTE | 2018-12-28 17:24 | NUR ---
PT TRANSFERRED TO ROOM 229 FROM ICU VIA BED AT APPROXIMATELY 1545. REPORT RECEIVED FROM NHUNG IBRAHIM. THIS RN AGREES WITH PREVIOUS EKG TECH. PT A&0X4, DENIES ANY PAIN OR SHORTNESS OF BREATH. PT STATES HIS "STOMACH HURTS A LITTLE BIT DUE TO THE GREASE IN THE FOOD HERE". CIWA COMPLETED CHARTED. 1:1 AT BEDSIDE. PT TRACING SR WITH BBB ON THE MEASUREMENT PSYCHOLOGIST. ON RA SAT UPPER 90'S. PT IN CONTACT ISOLATION FOR MRSA. PT HAD A BOWEL MOVEMENT THIS AFTERNOON ON BEDPAN. MEDICATIONS PER JUL. PT REPOSITIONED EVERY 2 HOURS FOR COMFORT. HOURLY ROUNDING OBSERVED. BED IN LOW POSITION. BED ALARM IN PLACE. FALL PRECAUTIONS IN PLACE. CALL LIGHT WITHIN REACH. WILL CONTINUE PLAN OF CARE.
[2018-12-29 04:00] VITALS: BP 137/82
[2018-12-29 05:41] LABS: HEMATOCRIT 43.6 % (42.0-52.0); HEMOGLOBIN 14.4 gm/dL (14.0-18.0); MCH 29.9 pg (26.0-34.0); MCV 90.9 fL (80.0-100.0); MPV 9.5 fl. (7.2-11.1); RBC 4.8 mil/uL (4.50-6.00); RDW-CV 16.8 % (10.5-14.5); WBC 7.1 thou/uL (4.0-11.0)
[2018-12-29 05:56] LABS: ALBUMIN 2.2 g/dL (3.4-5.0); CALCIUM 7.7 mg/dL (8.5-10.1); CREATININE 0.8 mg/dL (0.6-1.3); MAGNESIUM 1.8 mg/dL (1.8-2.4); POTASSIUM 3.6 mmol/L (3.5-5.1); TOTAL BILIRUBIN 2.2 mg/dL (<0.1-1.0); TOTAL PROTEIN 5.3 g/dL (6.4-8.2)
[2018-12-29 08:23] VITALS: BP 127/83
[2018-12-29] MEDS ORDERED: LEVAQUIN 750 M750 MG PO (10:32)
[2018-12-29 15:46] VITALS: BP 116/74
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
[2018-12-29 20:00] VITALS: BP 119/85
[2018-12-30] VITALS (7 sets, daily range): BP systolic 112–152; BP diastolic 65–98
--- NOTE | 2018-12-30 06:26 | NUR ---
PT ALERT AND ORIENTED. CALM AND COOPERATIVE. VSS ON RA. MEDS GIVEN PER EMAR. CONTACT ISOLATION IN PLACE. Q2 TURN. IV TO RT IJ SL. CALL LIGHT WITHIN REACH. HOURLY ROUNDINGS MADE. WILL CONTINUE TO MONITOR.
--- NOTE | 2018-12-30 10:00 | NUR ---
ASSUMED CARE AFTER REPORT. ORIENTED X4, FLAT. ABLE TO COMMUNICATE BASIC NEEDS. LAW FIRM RECEPTIONIST IN PLACE, SR, BBB, PVC. O2 SATS 98% RA. C/O PAIN WITH COUGHING. SEE JUL. VOIDING PER URINAL. ISOLATION FOR MRSA MAINTAINED. ENCOURAGED PATIENT TO SIT UP FOR MEALS AND MEDS. GOAL UP TO CHAIR TODAY. CALL LIGHT IN REACH. HOURLY ROUNDING FOR SAFETY AND PATIENT NEEDS.
[2018-12-30] MEDS ORDERED: PROAIR RESPICL90 MCG INH (15:02)
--- NOTE | 2018-12-30 15:30 | NUR ---
PRESENT FOR CONVERSATION WITH PATIENT ABOUT DC PLAN OPTION FOR DC. PATIENT OPEN TO GOING TO A REHAB FACILITY BUT STATES "THEY MADE ME LEAVE TOO SOON LAST TIME." PATIENT STATES HIS SISTER IS WORKING ON GETTING HIM HELP FROM WHOLE PERSON. PROVIDED THERAPEUTIC COMMUNICATION: LISTENING.
--- NOTE | 2018-12-30 16:52 | NUR ---
GRICELDA followed up with all inpt referral sources beginning this morning; when [facility] inpt rehab denied, SW tried [facility]pt [facility], they reviewed for a while and SW finally heard about 3:30 pm that they rejected referral as well. GRICELDA called pt sister Kathrin who was adamant that pt needs a placement and resources and assistance both rehab physically and drug/alcohol, psych. SW explained that pt does not have accepting inpt rehab option available and does not meet criteria for inpt psych, SW explained most drug/alcohol would be OP basis and pt could return home with nurse and follow up with OP drug intervention program but pt now does not have anywhere or anyone who will provide a home/care for pt. Pt sister came to hospital about 4:30 pm and discussed more with SW that "you are throwing pt out on curb" and "he will end up right back in here", "you give these pt's no hope", "no wonder he doesn't get help with the way you all are making him feel".... Pt sister said that even though they though maybe pt wouldn't go to [facility] inpt rehab, she wanted SW to attempt there now and pt said he would go. SW explained SW could send referral but that pt needs an alternate plan and if pt unwilling to go to [facility], LTC, then there needs to be option pt and pt sister could arrange for pt to dc to. GRICELDA received information just prior to 5 pm that the [facility] in [facility] is a residential facility to attempt to see if would be able to accommodate pt, Chandrika [phone]. Or if not, maybe [facility] would have a bed available tomorrow? GRICELDA discussed with pt nurse, pt and pt sister aware pt has dc orders for today but pt and pt sister refusing to agree to pt dc at this time.
--- NOTE | 2018-12-30 17:30 | NUR ---
CONTACTED CHARGE NURSE TO INFORM THAT PATIENT DOES NOT HAVE SAFE DC PLAN. CM SENT LATE REFERRAL TO [facility] PER HER CONVERSATION WITH PATIENT SISTER. PATIENT UNABLE TO TRANSFER INTO AND OUT OF CAB IF DC'D TONIGHT L SIDE WEAKNESS IMPAIRS TRANSFER WITHOUT MAX ASSIST. ADULT BASIC EDUCATION MANAGER CONSULTED. ONCALL PHYSICIAN CONTACTED WHO GAVE ORDER FOR CONTINUATION OF INPATIENT ORDERS.
[2018-12-31 00:18] VITALS: BP 125/80
[2018-12-31 03:51] VITALS: BP 134/87
--- NOTE | 2018-12-31 04:43 | NUR ---
ASSUMED CARE OF PT AFTER REPORT AT 1930. PT A&OX4. VSS. PHYSICAL ASSESSMENT COMPLETED AND CHARTED. PT ON RA. PT TRACING SR/SB/BBB ON TELE. PT UP WITH 2 MAX ASSIST TO RECLINER. DENIES ANY PAIN OR DISCOMFORT. CALL LIGHT WITHIN REACH.
[2018-12-31 08:00] VITALS: BP 139/87
--- NOTE | 2018-12-31 11:18 | NUR ---
Following for d/c planning needs. Reviewed chart and spoke at length with pt, sister and nurse. Sister wants pt to go to inpatient rehab. When speaking with pt, he adamantly refuses SNF and said he does not want to go to Rehab. He only wants to return home and be left alone. Called [facility] at sister's insistence and spoke with Michelle in inpatient rehab. She is currently reviewing records and will speak with her rehab physician after reviewing, and call HERBICIDE SERVICE SALES REPRESENTATIVE with decision. Sister also wants to know about obtaining wheelchair and larger bedside commode for pt. Encouraged pt to follow up with PCP to obtain wheelchair. Explained that bedside commode is not covered through insurance and could be purchased at [facility] or [facility], or [facility]. Per psychiatrist, pt does not need inpatient psychiatric stay at this time. Pt is agreeable to return home. Called [facility] and they will provide w/c van transport for pt to [address] [place] [address]. No other needs identified.
[2018-12-31 11:36] VITALS: BP 131/80
--- NOTE | 2018-12-31 12:12 | NUR ---
VSS, ASSUMED CARE OF PT IN THE AM, ASSESSMENT PERFORMED AND CHARTED, FALL PRECAUTIONS IN PLACE AND CALL LIGHT IN REACH, PT IS A&O4 AND UP WITH ONE ASSIST, PT DENIES ANY PAIN AT THIS TIME, HE IS TRACING SR ON THE MONITOR, PT HAS LEFT SIDE WEAKNEES, HE IS ON RA AND HIS GOAL IS TO HAVE SAFE D/C PLAN, AT THIS TIME PT HAS REFUSED TRANSFER TO [facility], PT STATES I WANT TO GO [facility]. I PROVITED D/C PAPERS AND TOOK OUT PICK LINE IJ, I HELD PRESSURE AT SITE FOR 10 MINUTES AND PUT VAN AND CLEAR BANDAGE OVER IT, PT WAS DRESSED AND PLACED IN WHEEL CHAIR, HE WAS TAKEN VIA WHEEL CHAIR VAN, HOURLY ROUNDS COMPLETED,
== END 2018-12-31 12:04 | disposition home health service (06) | DRG 917 ==
LOC: M.ERS 20:29 → M.ICU 22:53 → M.TBA-ER 22:53 → M.2W 22:53 → M.TBA-ER 22:53 → M.ICU 23:24 → M.2W 12-28 15:36
PROVIDERS: Emergency Medicine Emergency Medical Services; Family Medicine; Internal Medicine; Internal Medicine Critical Care Medicine; Internal Medicine Pulmonary Disease; ADMIT Internal Medicine
PROC: 0BH17EZ Insertion of Endotracheal Airway into Trachea, Via Natural or Artificial Opening (ICD-10-PCS; principal; 2018-12-21)
PROC: 5A1955Z Respiratory Ventilation, Greater than 96 Consecutive Hours (ICD-10-PCS; principal; 2018-12-21)
PROC: 02HV33Z Insertion of Infusion Device into Superior Vena Cava, Percutaneous Approach (ICD-10-PCS; principal; 2018-12-21)
PROC: 5A09357 Assistance with Respiratory Ventilation, Less than 24 Consecutive Hours, Continuous Positive Airway Pressure (ICD-10-PCS; 2018-12-26)
PROC: 5A09357 Assistance with Respiratory Ventilation, Less than 24 Consecutive Hours, Continuous Positive Airway Pressure (ICD-10-PCS; 2018-12-27)
DX: T40.2X2A Poisoning by other opioids, intentional self-harm, initial encounter (principal); R57.0 Cardiogenic shock; I21.4 Non-ST elevation (NSTEMI) myocardial infarction; J69.0 Pneumonitis due to inhalation of food and vomit; J15.6 Pneumonia due to other Gram-negative bacteria; J96.01 Acute respiratory failure with hypoxia; J96.02 Acute respiratory failure with hypercapnia; I50.22 Chronic systolic (congestive) heart failure; G93.1 Anoxic brain damage, not elsewhere classified; R45.851 Suicidal ideations; F10.231 Alcohol dependence with withdrawal delirium; I69.354 Hemiplegia and hemiparesis following cerebral infarction affecting left non-dominant side; K21.9 Gastro-esophageal reflux disease without esophagitis; I25.5 Ischemic cardiomyopathy; I25.10 Atherosclerotic heart disease of native coronary artery without angina pectoris; J44.9 Chronic obstructive pulmonary disease, unspecified; G47.33 Obstructive sleep apnea (adult) (pediatric); F41.9 Anxiety disorder, unspecified; I11.0 Hypertensive heart disease with heart failure; I48.2 Chronic atrial fibrillation; F17.210 Nicotine dependence, cigarettes, uncomplicated; F32.9 Major depressive disorder, single episode, unspecified; E78.5 Hyperlipidemia, unspecified; D69.6 Thrombocytopenia, unspecified; K75.9 Inflammatory liver disease, unspecified; Z79.01 Long term (current) use of anticoagulants; Z72.89 Other problems related to lifestyle; Z91.14 Patient's other noncompliance with medication regimen; Y92.89 Other specified places as the place of occurrence of the external cause; Z79.82 Long term (current) use of aspirin; Z79.899 Other long term (current) drug therapy; Z87.81 Personal history of (healed) traumatic fracture; Z95.1 Presence of aortocoronary bypass graft

== ENCOUNTER 2019-01-14 16:24 | Emergency (ER) | payer MEDICAID ==
[~2019-01-14] VITALS: Ht 188 cm; Wt 127.0 kg
[~2019-01-14 16:24] MED LIST changes: +LEVAQUIN 750 M750 MG PO; +PROAIR RESPICL90 MCG INH
[2019-01-14] MEDS ORDERED: PREDNISONE 10 M10 M1 PO (16:42)
[2019-01-14] MEDS ORDERED: DIPHENHIST50 MG PO (16:42)
[2019-01-14 16:50] VITALS: BP 137/97
== END 2019-01-14 16:50 | disposition home or self-care (01) ==
LOC: M.ERS 16:24
DX: L25.9 Unspecified contact dermatitis, unspecified cause (principal); K21.9 Gastro-esophageal reflux disease without esophagitis; I25.10 Atherosclerotic heart disease of native coronary artery without angina pectoris; I48.91 Unspecified atrial fibrillation; I11.0 Hypertensive heart disease with heart failure; I50.22 Chronic systolic (congestive) heart failure; F17.210 Nicotine dependence, cigarettes, uncomplicated; Z86.73 Personal history of transient ischemic attack (TIA), and cerebral infarction without residual deficits

== ENCOUNTER 2019-06-05 02:53 | Emergency (ER) | payer MEDICARE, MEDICAID ==
[~2019-06-05] VITALS: Ht 188 cm; Wt 104.3 kg
[~2019-06-05 02:53] MED LIST changes: +DIPHENHIST50 MG PO; +PREDNISONE 10 M10 M1 PO
[2019-06-05 04:13] LABS: ABSOLUTE BASOPHILS 0.1 thou/uL (0.0-0.2); ABSOLUTE EOSINOPHILS 0.1 thou/uL (0.0-0.7); ABSOLUTE LYMPHOCYTES 1.5 thou/uL (0.8-5.3); ABSOLUTE MONOCYTES 0.6 thou/uL (0.0-1.2); ABSOLUTE NEUTROPHILS 5.6 thou/uL (1.6-8.1); BASOPHILS 0.9 %; EOSINOPHILS 0.9 %; HEMATOCRIT 46.6 % (42.0-52.0); HEMOGLOBIN 16.1 gm/dL (14.0-18.0); LYMPHOCYTES 19.4 %; MCH 33.6 pg (26.0-34.0); MCHC 34.6 g/dL (28.0-37.0); MCV 96.9 fL (80.0-100.0); MPV 7.8 fl. (7.2-11.1); NUCLEATED RBCS 0 /100WBC; PLATELET COUNT* 272 thou/uL (150-400); POLYS 70.8 %; RBC 4.81 mil/uL (4.50-6.00); RDW-CV 16.1 % (10.5-14.5); WBC 7.9 thou/uL (4.0-11.0)
[2019-06-05 04:39] LABS: ALBUMIN 2.9 g/dL (3.4-5.0); CALCIUM 8.6 mg/dL (8.5-10.1); CREATININE 0.9 mg/dL (0.6-1.3); TOTAL BILIRUBIN 0.9 mg/dL (<0.1-1.0); TOTAL PROTEIN 7.5 g/dL (6.4-8.2)
[2019-06-05 04:45] LABS: POTASSIUM 3.3 mmol/L (3.5-5.1)
[2019-06-05 05:06] LABS: URINE BILIRUBIN NEGATIVE (Negative); URINE BLOOD TRACE (Negative); URINE CLARITY CLEAR; URINE COLOR DARK YELLOW; URINE GLUCOSE-RANDOM NEGATIVE (Negative); URINE KETONES NEGATIVE (Negative); URINE LEUKOCYTES-REFLEX NEGATIVE (Negative); URINE PROTEIN 1+ (Negative); URINE SPECIFIC GRAVITY 1.025 (1.005-1.030)
[2019-06-05 05:10] LABS: URINE NITRITE-REFLEX POSITIVE (Negative)
[2019-06-05 05:19] LABS: AMP/METHAMP POSITIVE (Negative); BARBITURATES Negative (Negative); BENZODIAZEPINES Negative (Negative); COCAINE Negative (Negative); METHADONE Negative (Negative); OPIATES Negative (Negative); PCP Negative (Negative); THC Negative (Negative)
[2019-06-05 05:29] LABS: BACTERIA-REFLEX >30 Many /HPF (None Seen); CASTS None Seen /LPF (None Seen); CRYSTALS None Seen /LPF (None Seen); MUCUS 4-6 Moderate strn/LPF (None Seen); SQUAMOUS 0-3 Few /LPF (0-3); URINE WBC-REFLEX 6-15 Few /HPF (0-5); WBC CLUMPS Few (None Seen)
[2019-06-05] MEDS ORDERED: BACLOFEN 10MG T10 MG PO ×2 (06:25→06:28)
[2019-06-05] MEDS ORDERED: BACTRIM DS TAB1 EACH PO (06:30)
[2019-06-05 06:50] VITALS: BP 138/93
== END 2019-06-05 06:50 | disposition home or self-care (01) ==
LOC: M.ERS 02:53
PROVIDERS: Emergency Medicine
DX: G62.9 Polyneuropathy, unspecified (principal); N39.0 Urinary tract infection, site not specified; R60.0 Localized edema; K21.9 Gastro-esophageal reflux disease without esophagitis; I48.20 Chronic atrial fibrillation, unspecified; I25.10 Atherosclerotic heart disease of native coronary artery without angina pectoris; I11.0 Hypertensive heart disease with heart failure; I50.22 Chronic systolic (congestive) heart failure; F17.210 Nicotine dependence, cigarettes, uncomplicated; Z86.73 Personal history of transient ischemic attack (TIA), and cerebral infarction without residual deficits; Z79.899 Other long term (current) drug therapy

== ENCOUNTER 2019-06-05 16:14 | Emergency (ER) | payer MEDICARE, MEDICAID ==
[~2019-06-05] VITALS: Ht 188 cm; Wt 104.3 kg
[~2019-06-05 16:14] MED LIST changes: +BACLOFEN 10MG T10 MG PO; +BACTRIM DS TAB1 EACH PO
[2019-06-05 17:03] VITALS: BP 141/87
== END 2019-06-05 17:57 ==
LOC: M.ERS 16:14
DX: S01.511A Laceration without foreign body of lip, initial encounter (principal); G89.29 Other chronic pain; K21.9 Gastro-esophageal reflux disease without esophagitis; I25.10 Atherosclerotic heart disease of native coronary artery without angina pectoris; I11.0 Hypertensive heart disease with heart failure; I50.22 Chronic systolic (congestive) heart failure; I48.20 Chronic atrial fibrillation, unspecified; F17.210 Nicotine dependence, cigarettes, uncomplicated; Z86.73 Personal history of transient ischemic attack (TIA), and cerebral infarction without residual deficits; W18.39XA Other fall on same level, initial encounter; Y93.89 Activity, other specified; Y92.89 Other specified places as the place of occurrence of the external cause; Y99.8 Other external cause status

== ENCOUNTER 2019-07-29 12:10 | Emergency (ER) | payer MEDICARE, MEDICAID ==
[~2019-07-29] VITALS: Ht 188 cm; Wt 104.3 kg
[2019-07-29 13:01] LABS: ABSOLUTE BASOPHILS 0.1 thou/uL (0.0-0.2); ABSOLUTE EOSINOPHILS 0.1 thou/uL (0.0-0.7); ABSOLUTE LYMPHOCYTES 1.2 thou/uL (0.8-5.3); ABSOLUTE MONOCYTES 0.5 thou/uL (0.0-1.2); ABSOLUTE NEUTROPHILS 3.1 thou/uL (1.6-8.1); BASOPHILS 1.1 %; EOSINOPHILS 1.1 %; HEMATOCRIT 46.2 % (42.0-52.0); HEMOGLOBIN 15.9 gm/dL (14.0-18.0); LYMPHOCYTES 25.2 %; MCH 32.8 pg (26.0-34.0); MCHC 34.5 g/dL (28.0-37.0); MCV 94.9 fL (80.0-100.0); MONOCYTES 9.3 %; MPV 7.7 fl. (7.2-11.1); NUCLEATED RBCS 0 /100WBC; PLATELET COUNT* 332 thou/uL (150-400); POLYS 63.3 %; RBC 4.86 mil/uL (4.50-6.00); RDW-CV 15.7 % (10.5-14.5); WBC 4.9 thou/uL (4.0-11.0)
[2019-07-29 13:07] LABS: CALCIUM 8.7 mg/dL (8.5-10.1); CREATININE 0.8 mg/dL (0.6-1.3); POTASSIUM 3.8 mmol/L (3.5-5.1)
[2019-07-29 13:12] LABS: ALBUMIN 3.3 g/dL (3.4-5.0); TOTAL BILIRUBIN 0.6 mg/dL (<0.1-1.0); TOTAL PROTEIN 7.4 g/dL (6.4-8.2)
[2019-07-29 13:19] LABS: ACETAMINOPHEN < 2 ug/mL (10-30); ALCOHOL 83 mg/dL (<10); SALICYLATE < 2.8 mg/dL (2.8-20.0)
[2019-07-29 14:06] VITALS: BP 131/75
== END 2019-07-29 14:07 | disposition home or self-care (01) ==
LOC: M.ERS 12:10
PROVIDERS: Emergency Medicine Emergency Medical Services
DX: F10.129 Alcohol abuse with intoxication, unspecified (principal); F41.9 Anxiety disorder, unspecified; R19.7 Diarrhea, unspecified; J34.89 Other specified disorders of nose and nasal sinuses; F17.210 Nicotine dependence, cigarettes, uncomplicated; I11.0 Hypertensive heart disease with heart failure; K21.9 Gastro-esophageal reflux disease without esophagitis; I48.20 Chronic atrial fibrillation, unspecified; I50.22 Chronic systolic (congestive) heart failure; I25.10 Atherosclerotic heart disease of native coronary artery without angina pectoris; Z79.899 Other long term (current) drug therapy

== ENCOUNTER 2019-08-04 09:53 | Emergency (ER) | payer MEDICARE, MEDICAID ==
[~2019-08-04] VITALS: Ht 188 cm; Wt 104.3 kg
[2019-08-04 12:01] LABS: URINE BILIRUBIN NEGATIVE (Negative); URINE BLOOD NEGATIVE (Negative); URINE CLARITY CLEAR; URINE COLOR YELLOW; URINE GLUCOSE-RANDOM NEGATIVE (Negative); URINE KETONES NEGATIVE (Negative); URINE LEUKOCYTES NEGATIVE (Negative); URINE NITRITE NEGATIVE (Negative); URINE PROTEIN NEGATIVE (Negative)
[2019-08-04 12:17] LABS: AMP/METHAMP POSITIVE (Negative); BARBITURATES Negative (Negative); BENZODIAZEPINES Negative (Negative); COCAINE Negative (Negative); METHADONE Negative (Negative); OPIATES Negative (Negative); PCP Negative (Negative); THC Negative (Negative)
[2019-08-04 12:20] LABS: ABSOLUTE BASOPHILS 0.1 thou/uL (0.0-0.2); ABSOLUTE EOSINOPHILS 0.1 thou/uL (0.0-0.7); ABSOLUTE LYMPHOCYTES 1.2 thou/uL (0.8-5.3); ABSOLUTE MONOCYTES 0.4 thou/uL (0.0-1.2); ABSOLUTE NEUTROPHILS 3.1 thou/uL (1.6-8.1); BASOPHILS 1.2 %; EOSINOPHILS 1.6 %; HEMATOCRIT 45.5 % (42.0-52.0); HEMOGLOBIN 15.6 gm/dL (14.0-18.0); LYMPHOCYTES 24.2 %; MCHC 34.4 g/dL (28.0-37.0); MPV 7.5 fl. (7.2-11.1); NUCLEATED RBCS 0 /100WBC; PLATELET COUNT* 280 thou/uL (150-400); RBC 4.74 mil/uL (4.50-6.00); RDW-CV 15.5 % (10.5-14.5); WBC 4.8 thou/uL (4.0-11.0)
[2019-08-04 12:28] LABS: CALCIUM 8.3 mg/dL (8.5-10.1); CREATININE 0.8 mg/dL (0.6-1.3); POTASSIUM 3.9 mmol/L (3.5-5.1)
[2019-08-04 12:32] LABS: MAGNESIUM 1.5 mg/dL (1.8-2.4); TOTAL BILIRUBIN 0.6 mg/dL (<0.1-1.0); TOTAL PROTEIN 6.8 g/dL (6.4-8.2)
[2019-08-04 12:36] LABS: INFLUENZA A ANTIGEN Negative (Negative); INFLUENZA B ANTIGEN Negative (Negative)
[2019-08-04 15:21] VITALS: BP 149/75
--- NOTE | 2019-08-04 16:52 | EKG ---
[place] [address] ELECTROCARDIOGRAM REPORT Name: FARZANA STARKEY JR Room: [facility]#: [id number] Admission: 08/04/19 Attend Phys: Discharge: 08/04/19 Date of : 68 Date of Service: 08/04/19 1154 Report #: [id number] THIS REPORT FOR: //name// [facility] ED Test Date: 2019-08-04 Test Time: 11:54:28 Pat Name: FARZANA STARKEY Department: Room: Gender: Glove Examiner: : 1970 Requested By: Letty Preston Order Number: [id number] MD: Jay Jay Dominguez Measurements Intervals [place] Rate: 69 P: 59 NV: 181 QRS: 40 QRSD: 168 T: 68 QT: 503 QTc: 539 Interpretive Statements Sinus rhythm Ventricular trigeminy Right bundle branch block Baseline wander in lead(s) V2,V3 Compared to ECG 12/21/2018 20:51:22 Ventricular premature complex(es) now present Atrial fibrillation no longer present ST (T wave) deviation no longer present Electronically Signed On 08-04-2019 16:51:00 CDT by Jay Jay Dominguez [email or web address] <ELECTRONICALLY SIGNED> By: Jay Jay Dominguez MD, [facility] 08/04/19 1651 1154 1154 Jay Jay Dominguez MD, [facility] /EPI
--- NOTE | 2019-08-04 17:14 | NUR ---
CM SAW PT IN ED. PT SISTER, SIVAN PRESENT. SIVAN INFORMED CM PT LIVES IN A HOTEL AND NEEDS HELP W/LONG CARE PLACEMENT. SIVAN PROVIDE CM W/CONTACT INFO FOR [facility] SHE HAD SPK W/[facility]. [facility] INFORMED CM THAT SHE WOULD REVIEW REFERRAL BUT WOULD NOT BE ABLE TO ACCEPT PT TODAY. PT RN, RONIT INFORMED. CM SENT REFERRALS TO [facility] - [facility] STATED SHE WOULDNT BE ABLE TO COME SEE PT TODAY; HOWEVER, SHE WOULD REVIEW AND CONTACT [facility] IF SHE IS ABLE TO ASSIST, PT HAS BEEN D/C FROM ED. CM NOTIFIED SIVAN OF THIS AND SHE WAS GRATEFUL FOR THE HELP. [facility], [facility], AND [place] DECLINED PT. [facility] HAS NO BEDS AVAIL. PT AND SIVAN NOTIFIED OF CM INABILITY TO FIND LTC. CM OFFERED RESIDENTAL HOMES AND LONG-TERM RESOUCES. CM OFFERED TO CONTACT [facility] TO ARRANGE TRANSPORATATION FOR PT. SUZANNA HAD SOMEONE ON THE PHONE WHO WAS GOING TO COME TO HOSPITAL TO ASSIST W/TRANSPORTATION.
== END 2019-08-04 15:23 | disposition home or self-care (01) ==
LOC: M.ERS 09:53
PROVIDERS: Physician Assistant
DX: S50.02XA Contusion of left elbow, initial encounter (principal); S90.812A Abrasion, left foot, initial encounter; K21.9 Gastro-esophageal reflux disease without esophagitis; I48.20 Chronic atrial fibrillation, unspecified; I11.0 Hypertensive heart disease with heart failure; I50.22 Chronic systolic (congestive) heart failure; F17.210 Nicotine dependence, cigarettes, uncomplicated; Z79.899 Other long term (current) drug therapy; W18.30XA Fall on same level, unspecified, initial encounter; Y93.89 Activity, other specified; Y92.89 Other specified places as the place of occurrence of the external cause; Y99.8 Other external cause status

== ENCOUNTER 2019-09-07 00:18 | Emergency (ER) | payer MEDICARE, MEDICAID ==
[~2019-09-07] VITALS: Ht 188 cm; Wt 59.0 kg
[2019-09-07 00:39] LABS: ABSOLUTE EOSINOPHILS 0.7 thou/uL (0.0-0.7); ABSOLUTE LYMPHOCYTES 1.7 thou/uL (0.8-5.3); ABSOLUTE MONOCYTES 0.5 thou/uL (0.0-1.2); ABSOLUTE NEUTROPHILS 3.9 thou/uL (1.6-8.1); BASOPHILS 0.4 %; EOSINOPHILS 10.1 %; HEMATOCRIT 51.5 % (42.0-52.0); HEMOGLOBIN 17.6 gm/dL (14.0-18.0); LYMPHOCYTES 24.9 %; MCH 32.5 pg (26.0-34.0); MCHC 34.1 g/dL (28.0-37.0); MCV 95.3 fL (80.0-100.0); MONOCYTES 7.6 %; MPV 7.5 fl. (7.2-11.1); NUCLEATED RBCS 0 /100WBC; PLATELET COUNT* 233 thou/uL (150-400); RDW-CV 17.1 % (10.5-14.5); WBC 6.8 thou/uL (4.0-11.0)
[2019-09-07 00:48] LABS: CALCIUM 8.7 mg/dL (8.5-10.1); CREATININE 0.8 mg/dL (0.6-1.3); POTASSIUM 3.5 mmol/L (3.5-5.1)
[2019-09-07 00:53] LABS: ALBUMIN 3.3 g/dL (3.4-5.0); TOTAL BILIRUBIN 0.8 mg/dL (<0.1-1.0); TOTAL PROTEIN 8.3 g/dL (6.4-8.2)
[2019-09-07 01:17] LABS: INR 1.1; PROTIME 10.8 Seconds (9.20-11.50)
[2019-09-07 05:18] VITALS: BP 165/75
== END 2019-09-07 04:45 | disposition home or self-care (01) ==
LOC: M.ERS 00:18
PROVIDERS: Emergency Medicine
DX: I73.9 Peripheral vascular disease, unspecified (principal); F10.129 Alcohol abuse with intoxication, unspecified; Y90.6 Blood alcohol level of 120-199 mg/100 ml; I11.0 Hypertensive heart disease with heart failure; I50.22 Chronic systolic (congestive) heart failure; I48.20 Chronic atrial fibrillation, unspecified; F17.210 Nicotine dependence, cigarettes, uncomplicated; Z86.73 Personal history of transient ischemic attack (TIA), and cerebral infarction without residual deficits; Z79.899 Other long term (current) drug therapy

== ENCOUNTER 2019-10-30 12:28 | Observation (INO) | payer MEDICARE, MEDICAID ==
[~2019-10-30] VITALS: Ht 182.9 cm; Wt 100.2 kg
[2019-10-30 13:08] LABS: URINE BILIRUBIN NEGATIVE (Negative); URINE BLOOD NEGATIVE (Negative); URINE CLARITY CLEAR; URINE COLOR YELLOW; URINE GLUCOSE-RANDOM NEGATIVE (Negative); URINE KETONES NEGATIVE (Negative); URINE LEUKOCYTES NEGATIVE (Negative); URINE NITRITE NEGATIVE (Negative); URINE PROTEIN NEGATIVE (Negative); URINE SPECIFIC GRAVITY 1.025 (1.005-1.030); URINE UROBILINOGEN 0.2 E.U./dl (0.2-1.0)
[2019-10-30 13:10] LABS: HEMATOCRIT 48.1 % (42.0-52.0); HEMOGLOBIN 16.6 gm/dL (14.0-18.0); MCH 33.1 pg (26.0-34.0); MCHC 34.6 g/dL (28.0-37.0); MCV 95.8 fL (80.0-100.0); MPV 6.5 fl. (7.2-11.1); RBC 5.02 mil/uL (4.50-6.00); RDW-CV 19.4 % (10.5-14.5); WBC 4.3 thou/uL (4.0-11.0)
[2019-10-30 13:14] LABS: AMP/METHAMP POSITIVE (Negative); BARBITURATES Negative (Negative); BENZODIAZEPINES POSITIVE (Negative); COCAINE Negative (Negative); METHADONE Negative (Negative); OPIATES Negative (Negative); PCP Negative (Negative); THC Negative (Negative)
[2019-10-30 13:16] LABS: INR 1.1; PROTIME 11.4 Seconds (9.20-11.50)
[2019-10-30 13:17] LABS: CREATININE 0.8 mg/dL (0.6-1.3); POTASSIUM 3.6 mmol/L (3.5-5.1)
[2019-10-30 13:21] LABS: ALBUMIN 2.9 g/dL (3.4-5.0); TOTAL BILIRUBIN 0.6 mg/dL (<0.1-1.0); TOTAL PROTEIN 7.5 g/dL (6.4-8.2)
[2019-10-30 13:26] LABS: ACETAMINOPHEN < 2 ug/mL (10-30); ALCOHOL 160 mg/dL (<10)
--- NOTE | 2019-10-30 14:57 | NUR ---
PT GIVES VERBAL PERMISSION TO SPEAK WITH FATHER SISTER AT BEDSIDE AT THIS TIME
[2019-10-30 15:30] LABS: BE -3.3 mmol/L (-2 to +3); PO2 96.1 mmHg (75.0-100.0)
[2019-10-30 15:33] LABS: PCO2 51.7 mmHg (35.0-45.0); pH 7.286 (7.340-7.450)
--- NOTE | 2019-10-30 16:22 | NUR ---
PT STATED WHILE RN IN ROOM, "I'M SO TIRED, I FEEL LIKE CRAP, I DIDN'T KNOW THIS WOULD CAUSE THIS". RN ASKED PT WHY HE DRANK AND TOOK SO MUCH MEDICAITON, PT STATED "I WAS JUST TRYING TO LIVE LIFE TO THE FULLEST". PT DID NOT MENTION ANY SI.
[2019-10-30 17:02] VITALS: BP 128/85
[2019-10-31 03:16] LABS: BE 2.1 mmol/L (-2 to +3); PCO2 38.2 mmHg (35.0-45.0); PO2 70.4 mmHg (75.0-100.0); pH 7.451 (7.340-7.450)
[2019-10-31 05:15] LABS: HEMOGLOBIN 14.8 gm/dL (14.0-18.0); MCH 32.8 pg (26.0-34.0); MCHC 34.5 g/dL (28.0-37.0); MCV 95.1 fL (80.0-100.0); MPV 6.7 fl. (7.2-11.1); RBC 4.53 mil/uL (4.50-6.00); RDW-CV 19.3 % (10.5-14.5); WBC 5.4 thou/uL (4.0-11.0)
[2019-10-31 05:28] LABS: ALBUMIN 2.4 g/dL (3.4-5.0); CALCIUM 7.5 mg/dL (8.5-10.1); CREATININE 0.8 mg/dL (0.6-1.3); MAGNESIUM 1.6 mg/dL (1.8-2.4); POTASSIUM 3.8 mmol/L (3.5-5.1); TOTAL BILIRUBIN 0.7 mg/dL (<0.1-1.0); TOTAL PROTEIN 6.3 g/dL (6.4-8.2)
--- NOTE | 2019-10-31 07:26 | EKG ---
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1970 Requested By: Velma Pope Order Number: [id number] MD: Markus Calvo Measurements Intervals [place] Rate: 63 P: 48 IN: 192 QRS: 72 QRSD: 164 T: 63 QT: 520 QTc: 533 Interpretive Statements Sinus rhythm Possible left atrial enlargement Right bundle branch block Compared to ECG 08/04/2019 11:54:28 Ventricular premature complex(es) no longer present Electronically Signed On 10-31-2019 7:25:16 CDT by Markus Calvo [email or web address] <ELECTRONICALLY SIGNED> By: Markus Calvo MD, FACC 10/31/19 0725 1227 1227 Markus Calvo MD, FACC /EPI
[2019-10-31 08:00] VITALS: BP 148/95
--- NOTE | 2019-10-31 11:56 | NUR ---
Pt medically stable to wy. Pt very well known to CM, Pt is homeless. Case management has attempted on multiple occasions to place Pt LTC, Pt either refuses or leaves AMA. 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 Pt states that he does not have a place to stay, CM informed both Pt and sister that a LTC facility is not an option with Pt's current drug and ETOH use. CM [facility], they can accept Pt between 3-630pm. Address is: [facility] [address], [facility] [address]. CM confirmed that they will have a male bed available and confirmed that they can accept Pt in his wc. Updated nurse and sister of dispo plan. Cab voucher to be provided.
--- NOTE | 2019-10-31 11:59 | NUR ---
[facility] [phone]
[2019-10-31 12:00] VITALS: BP 140/84
[2019-10-31 14:51] VITALS: BP 140/84
[2019-10-31 16:00] VITALS: BP 129/78
--- NOTE | 2019-10-31 16:13 | 2DMMODE ---
[place] [address] 2 D/M-MODE ECHOCARDIOGRAM Name: FARZANA STARKEY JR Room: [address] JimiR.#: [id number] Admission: 10/30/19 Attend Phys: Dimple May, Discharge: Date of : 68 Date of Service: 10/31/19 1612 Report #: [id number] THIS REPORT FOR: cc: FAM - No family physician/PCP FAM - No family physician/PCP Markus Calvo MD [facility] ~ APPROVED REPORT Study performed: 10/31/2019 09:16:31 EXAM: Comprehensive 2D, Doppler, and color-flow Echocardiogram Patient Location: In-Patient BSA: 2.22 HR: 63 bpm BP: 128/85 mmHg Other Information Study Quality: Good Indications Syncope 2D Dimensions IVSd: 12.89 (7-11mm) LVOT Diam: 23.64 (18-24mm) LVDd: 56.24 mm PWd: 12.01 (7-11mm) Ascending Ao: 30.36 (22-36mm) LVDs: 46.16 (25-40mm) Aortic Root: 33.78 mm Volumes Left Atrial Volume (Systole) LA ESV Index: 23.90 mL/m2 Aortic Valve AoV Peak Jae.: 0.96 m/s AO Peak Gr.: 3.67 mmHg LVOT Max P.49 mmHg AO Mean Gr.: 2.23 mmHg LVOT Mean P.74 mmHg LVOT Max V: 0.61 m/s AO V2 VTI: 17.61 cm LVOT Mean V: 0.39 m/s BRENNAN (VTI): 2.42 cm2 LVOT V1 VTI: 9.70 cm Mitral Valve E/A Ratio: 1.22 [place] [address] 2 D/M-MODE ECHOCARDIOGRAM Name: FARZANA STARKEY JR Room: [address]#: [id number] Admission: 10/30/19 Attend Phys: Dimple May, Discharge: Date of : 68 Date of Service: 10/31/19 1612 Report #: [id number] MV Decel. Time: 155.40 ms MV E Max Jae.: 0.85 m/s MV PHT: 45.06 ms MVA (PHT): 4.88 cm2 TDI E/Lateral E': 8.50 E/Medial E': 21.25 Medial E' Jae.: 0.04 m/s Lateral E' Jae.: 0.10 m/s Pulmonary Valve PV Peak Jae.: 0.85 m/s PV Peak Gr.: 2.91 mmHg Left Ventricle Left ventricle is mildly dilated. The inferior wall is akinetic from base to apex. Portions of the distal apical septum appear hypokinetic. Portions of the distal apical anterior wall appear hypokinetic. Mild concentric left ventricular hypertrophy. Left ventricular ejection fraction is severely decreased. LVEF is 30-35%. Transmitral Doppler flow pattern suggests impaired LV relaxation. Right Ventricle Right ventricle is borderline dilated. The right ventricular systolic function is normal. Atria The left atrium size is normal. The right atrium size is normal. Aortic Valve The aortic valve is normal in structure. No aortic regurgitation is present. There is no aortic valvular stenosis. Mitral Valve The mitral valve is normal in structure. Mild mitral regurgitation. No evidence of mitral valve stenosis. Tricuspid Valve The tricuspid valve is normal in structure. Trace tricuspid regurgitation. No pulmonary hypertension. Pulmonic Valve The pulmonary valve is normal in structure. There is no pulmonic [place] [address] 2 D/M-MODE ECHOCARDIOGRAM Name: FARZANA STARKEY JR Room: [address]#: [id number] Admission: 10/30/19 Attend Phys: Dimple May, Discharge: Date of : 68 Date of Service: 10/31/19 1612 Report #: [id number] Great Vessels The aortic root is normal in size. IVC is normal in size and collapses >50% with inspiration. Pericardium There is no pericardial effusion. <Conclusion> Left ventricle is mildly dilated. Mild concentric left ventricular hypertrophy. Left ventricular ejection fraction is severely decreased. LVEF is 30-35%. Transmitral Doppler flow pattern suggests impaired LV relaxation. The inferior wall is akinetic from base to apex. Portions of the distal apical septum appear hypokinetic. Portions of the distal apical anterior wall appear hypokinetic. Right ventricle is borderline dilated. Mild mitral regurgitation. Trace tricuspid regurgitation. No pulmonary hypertension. IVC is normal in size and collapses >50% with inspiration. <ELECTRONICALLY SIGNED> By: Markus Calvo MD, FACC 10/31/19 1612 161 161 Markus Calvo MD, FACC /INF
--- NOTE | 2019-10-31 17:43 | NUR ---
PT DISCHARGED AT 1730 ALL BELONGINGS PACKED AND SENT WITH PT ALONG WITH DISCHARGE PACKET PICKED UP BY [facility] USING VOUCHER GOING TO [facility]
[2019-11-01 02:07] LABS: HEPATITIS B SURFACE AG Negative (Negative)
== END 2019-10-31 17:30 | disposition home or self-care (01) ==
LOC: M.ERS 12:28 → M.ICU 15:17 → M.TBA-ER 15:17 → M.ICU 15:17
PROVIDERS: Personal Emergency Response Attendant; ADMIT Internal Medicine; ATTEND Internal Medicine
DX: R41.82 Altered mental status, unspecified (principal); I11.0 Hypertensive heart disease with heart failure; I50.9 Heart failure, unspecified; I25.10 Atherosclerotic heart disease of native coronary artery without angina pectoris; K21.9 Gastro-esophageal reflux disease without esophagitis; E87.2 Acidosis; I48.91 Unspecified atrial fibrillation; Z86.73 Personal history of transient ischemic attack (TIA), and cerebral infarction without residual deficits; F19.129 Other psychoactive substance abuse with intoxication, unspecified

== ENCOUNTER 2020-04-07 17:37 | Emergency (ER) | payer MEDICARE, MEDICAID ==
[~2020-04-07] VITALS: Ht 188 cm; Wt 97.5 kg
[2020-04-07 18:14] LABS: ABSOLUTE LYMPHOCYTES 1.4 thou/uL (0.8-5.3); ABSOLUTE MONOCYTES 0.4 thou/uL (0.0-1.2); ABSOLUTE NEUTROPHILS 3.7 thou/uL (1.6-8.1); BASOPHILS 0.7 %; EOSINOPHILS 0.3 %; HEMATOCRIT 49.6 % (42.0-52.0); HEMOGLOBIN 17.1 gm/dL (14.0-18.0); LYMPHOCYTES 24.7 %; MCH 33.4 pg (26.0-34.0); MCHC 34.4 g/dL (28.0-37.0); MCV 97.1 fL (80.0-100.0); MONOCYTES 7.8 %; MPV 7.3 fl. (7.2-11.1); NUCLEATED RBCS 0 /100WBC; PLATELET COUNT* 272 thou/uL (150-400); POLYS 66.5 %; RBC 5.11 mil/uL (4.50-6.00); WBC 5.5 thou/uL (4.0-11.0)
[2020-04-07 18:23] LABS: CALCIUM 8.4 mg/dL (8.5-10.1); CREATININE 1.1 mg/dL (0.6-1.3)
[2020-04-07 18:28] LABS: ALBUMIN 3.2 g/dL (3.4-5.0); TOTAL BILIRUBIN 0.9 mg/dL (<0.1-1.0); TOTAL PROTEIN 7.4 g/dL (6.4-8.2)
[2020-04-07] MEDS ORDERED: AMOXICILLIN 50500 MG PO (19:19)
[2020-04-07 19:41] VITALS: BP 127/85
--- NOTE | 2020-04-08 16:09 | EKG ---
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1970 Requested By: Kian Mccall Order Number: [id number] MD: Ryan Blair Measurements Intervals [place] Rate: 73 P: 20 [place]: 122 QRS: 82 QRSD: 161 T: 6 QT: 492 QTc: 543 Interpretive Statements Sinus rhythm Right bundle branch block Compared to ECG 10/30/2019 12:27:16 No significant changes Electronically Signed On 04-08-2020 16:09:42 BICYCLE TAXI DRIVER by Ryan Blair [email or web address] <ELECTRONICALLY SIGNED> By: Ryan Blair MD, [facility] 04/08/20 1609 1749 1749 Ryan Blair MD, [facility] /EPI
== END 2020-04-07 19:42 | disposition home or self-care (01) ==
LOC: M.ERS 17:37
PROVIDERS: Physician Assistant
DX: U07.1 COVID-19 (principal); S02.5XXA Fracture of tooth (traumatic), initial encounter for closed fracture; I10 Essential (primary) hypertension; K21.9 Gastro-esophageal reflux disease without esophagitis; I48.91 Unspecified atrial fibrillation; I11.0 Hypertensive heart disease with heart failure; I50.22 Chronic systolic (congestive) heart failure; I25.10 Atherosclerotic heart disease of native coronary artery without angina pectoris; F17.210 Nicotine dependence, cigarettes, uncomplicated; Z86.73 Personal history of transient ischemic attack (TIA), and cerebral infarction without residual deficits; X58.XXXA Exposure to other specified factors, initial encounter; Y93.89 Activity, other specified; Y92.89 Other specified places as the place of occurrence of the external cause; Y99.8 Other external cause status

== ENCOUNTER 2020-05-20 12:33 | Emergency (ER) | payer MEDICARE, MEDICAID ==
[~2020-05-20] VITALS: Ht 185.4 cm; Wt 99.0 kg
[~2020-05-20 12:33] MED LIST changes: +AMOXICILLIN 50500 MG PO
[2020-05-20 14:20] VITALS: BP 149/83
== END 2020-05-20 14:20 | disposition home or self-care (01) ==
LOC: M.ERS 12:33
DX: F10.129 Alcohol abuse with intoxication, unspecified (principal); Y90.9 Presence of alcohol in blood, level not specified; K21.9 Gastro-esophageal reflux disease without esophagitis; I48.91 Unspecified atrial fibrillation; I11.0 Hypertensive heart disease with heart failure; I50.22 Chronic systolic (congestive) heart failure; I25.10 Atherosclerotic heart disease of native coronary artery without angina pectoris; F17.210 Nicotine dependence, cigarettes, uncomplicated